=== PATIENT | male | born 1940 | race Caucasian/White ===

== ENCOUNTER 2019-09-19 17:54 | Inpatient (IN) | payer MEDICARE, OTHER, SELFPAY | END 2019-09-23 17:56 | disposition skilled nursing facility (03) | DRG 871 | PROVIDERS: Admitting Provider Internal Medicine; Family Provider Family Medicine; Visit Provider Student in an Organized Health Care Education/Training Program | DX: A41.9 Sepsis, unspecified organism (principal); J18.9 Pneumonia, unspecified organism; J96.01 Acute respiratory failure with hypoxia; N39.0 Urinary tract infection, site not specified; J44.1 Chronic obstructive pulmonary disease with (acute) exacerbation; J44.0 Chronic obstructive pulmonary disease with (acute) lower respiratory infection; N17.9 Acute kidney failure, unspecified; N20.0 Calculus of kidney; E11.9 Type 2 diabetes mellitus without complications; F17.210 Nicotine dependence, cigarettes, uncomplicated; M31.6 Other giant cell arteritis; I50.9 Heart failure, unspecified ==

== ENCOUNTER 2019-10-06 07:21 | Outpatient (CLI) | payer OTHER, SELFPAY ==
--- NOTE | 2019-10-06 07:42 | XR_ITS ---
WS: [id number] ABDOMEN KUB CLINICAL INFORMATION: Renal/ureteral calculi. COMPARISON: FINDINGS: Large stable left staghorn calculus measuring 4.8 x 2.5 cm unchanged. No visualized right renal paren chymal calculi. XR/XR KUB [id number] Impression: Stable large left staghorn calculus.
== END 2019-10-06 07:22 | disposition home or self-care (01) ==
LOC: RAD 07:26
PROVIDERS: Family Provider Family Medicine; PCP Family Medicine; Visit Provider Urology
DX: N20.0 Calculus of kidney (principal)
CPT/HCPCS: 74018

== ENCOUNTER 2019-12-11 07:46 | Outpatient (CLI) | payer MEDICARE, OTHER, SELFPAY ==
--- NOTE | 2019-12-11 08:18 | CT_ITS ---
WS: [id number] CT CHEST TECHNIQUE: Noncontrast CT of the chest with coronal and sagittal reformatted images. CLINICAL INFORMATION: LUNG NODULE COMPARISON: September 20, 2019 DLP: 588.[address] scans at [facility] use at least one of these dose optimization techniques: automat ed exposure control; mA and/or kV adjustment per patient size (includes targeted exams where dose is matched to clinical indication); or iterative reconstruction. FINDINGS: Small left pleural effusion has increased since September 20, 2019. Diffuse bilateral nodular pulmonar y opacities similar in appearance to the prior examinations dating back to 2016. Pulmonary opacities more prominent in the perihilar regions and upper lobes similar in appearance. Largest nodular opacit ies measure up to 1.9 CM. A few mediastinal lymph nodes. No mediastinal or hilar lymphadenopathy. Aortic calcification. Coronar y calcification. No axillary lymphadenopathy. Adrenal glands are normal. Partially visualized left ur eteral stent. Mild thoracic curve. CT/CT chest wo con [id number] IMPRESSION: 1. Small left pleural effusion is new since 2018. 2. Diffuse bilateral nodular pulmonary opacities similar in appearance dating back to 2016. Largest nodular opacities measure up to 1.9 cm not significantly changed. 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 3. No mediastinal or hilar lymphadenopathy. 4. Left ureteral stent. 5. Vascular calcification including coronary.
--- NOTE | 2019-12-11 08:18 | CT_ITS ---
WS: [id number] CT HEAD TECHNIQUE: Noncontrast and contrast-enhanced CT of the head. CLINICAL INFORMATION: HEADACHE COMPARISON: September 18, 2015 DLP: 1984.[address] scans at [facility] use at least one of these dose optimization techniques: automat ed exposure control; mA and/or kV adjustment per patient size (includes targeted exams where dose is matched to clinical indication); or iterative reconstruction. FINDINGS: No evidence of intracranial hemorrhage or mass effect. Ventricular system and basal cisterns are malcolm nt. Chronic lacunar infarct right caudate. Chronic lacunar infarct right thalamus. Mild small vessel changes. Moderate parenchymal volume loss. Intracranial vascular calcification. Right globe prosthesi s. No abnormal intracranial enhancement. Mastoid air cells are well aerated. Paranasal sinuses are well aerated. CT/CT head wo/w con [id number] IMPRESSION: 1. No abnormal intracranial enhancement. 2. Mild small vessel changes with moderate parenchymal volume loss. 3. 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 4. Right globe prosthesis.
[2019-12-11] MEDS: iodixanol 320 mg/mL 100mL Btl IV (09:57)
== END 2019-12-11 07:47 | disposition home or self-care (01) ==
LOC: RADWPI 07:53
PROVIDERS: Family Provider Family Medicine; PCP Family Medicine; Visit Provider Family Medicine
DX: J90 Pleural effusion, not elsewhere classified (principal); I25.10 Atherosclerotic heart disease of native coronary artery without angina pectoris; R91.1 Solitary pulmonary nodule
CPT/HCPCS: 70470; 71250; Q9967

== ENCOUNTER 2020-02-07 19:10 | Inpatient (IN) | payer MEDICARE, OTHER, SELFPAY ==
[2020-02-07] VITALS (33 sets, daily range): BP systolic 113–146; BP diastolic 59–76; PULSE 100; RESP 18; TEMP 36.9–37.6; O2SAT 90–97; BMI 25.7
--- NOTE | 2020-02-07 19:13 | CTR_ITS ---
PROCEDURE INFORMATION: Exam: CT Abdomen And Pelvis Without Contrast Exam date and time: 02/07/2020 7:32 PM Age: 79 years old Clinical indication: Abdominal pain; Prior surgery; Surgery type: Ureteral stent; Additional info: Flank pain TECHNIQUE: Imaging protocol: Computed tomography of the abdomen and pelvis without contrast. Axial, coronal and sagittal reformatted images were created and reviewed. Radiation optimization: All CT scans at this facility use at least one of these dose optimization techniques: automated exposure control; mA and/or kV adjustment per patient size (includes targeted exams where dose is matched to clinical indication); or iterative reconstruction. COMPARISON: CT Chest/Abdomen/Pelvis wo IV 09/20/2019 2:22 PM RADIATION DOSE METRICS: Total DLP: 911.54 mGy-cm FINDINGS: Lungs: Bibasilar pulmonary nodular densities, the largest of which is partially calcified and measures up to 1.9 x 1.2 cm, similar to prior and likely related to prior granulomatous disease. Linear stranding and groundglass at the lung bases, likely due to atelectasis and/or scarring. Liver: Mild hepatomegaly. Gallbladder and bile ducts: Subtle dependent hyperattenuation in the gallbladder lumen, likely secondary to sludge and/or small stones. Pancreas: Unremarkable. Spleen: Grpn-ov-[id number] splenomegaly. Coarse calcified splenic granulomata. Adrenals: Mild nonspecific left greater than right hypodense adrenal nodularity, similar to prior and likely secondary to benign hyperplasia or adenomas (no follow-up is indicated based on the imaging appearance). Kidneys and ureters: Interval placement of a left ureteral stent. Moderate left-sided hydroureteronephrosis and perinephric/periureteral edema. Small amount of gas in the left renal collecting system and ureter. Interval removal of the previously seen staghorn left renal calculus. Nonobstructing left renal calculi and/or vascular calcifications. Right renal vascular calcifications. Stomach and bowel: Colonic diverticulosis without evidence of diverticulitis. No obstruction. No bowel wall thickening. No pneumatosis. Appendix: Normal. Intraperitoneal space: No free fluid. No organized fluid collection. No free air. Vasculature: Moderate to severe atherosclerotic disease. Multifocal ectasia of the infrarenal abdominal aorta to approximately 2.8 cm, similar to prior. No aneurysm. Lymph nodes: No pathologically enlarged lymph nodes. Bladder: Circumferential urinary bladder wall thickening, trabeculation and diverticulosis, likely secondary to chronic bladder outlet obstruction. New mural gas, concerning for emphysematous cystitis. Reproductive: Enlarged prostate, projecting into the urinary bladder base. Bones/joints: No acute osseous abnormality. Osteopenia. Degenerative changes. Soft tissues: Fat containing umbilical and left inguinal hernias. Right inguinal hernia containing a nonobstructed bowel loops. CT/CT kidney stone [id number] IMPRESSION: 1. Limited noncontrast examination. 2. Interval placement of a left ureteral stent and removal of the previously seen staghorn calculus. Moderate left-sided hydroureteronephrosis and perinephric/periureteral edema. 3. Small amount of gas in the left renal collecting system and ureter, possibly secondary to recent instrumentation or gas producing organism. 4. 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 Correlate with urinalysis. 5. Enlarged prostate, projecting into the urinary bladder base. Correlate with clinical exam and PSA levels. 6. Additional findings, as above. Radiation Dose CTDIVOL = (mGy): DLP = 911.54 (mGy-cm)
--- NOTE | 2020-02-07 19:48 | XR_ITS ---
WS: [id number] PORTABLE CHEST HISTORY: fever COMPARISON: 09/19/2019 Hyperinflated lungs with patchy opacifications. Increasing opacification in the RIGHT upper lung. The remaining opacifications have slightly improved. No pleural effusion or pneumothorax. Cardiac size: Normal. Mediastinum/Aorta: Mild atherosclerosis aorta. No osseous abnormality seen. XR/XR chest 1V portable [id number] IMPRESSION: 1. New RIGHT upper lobe pneumonia. 2. Multiple bilateral pulmonary nodules remain stable.
--- NOTE | 2020-02-07 19:49 | ECG_ITS ---
Measurements Intervals [place] Rate: 91 P: 75 [place]: 163 QRS: -83 QRSD: 141 T: 18 QT: 336 QTc: 415 SINUS RHYTHM RIGHT BUNDLE BRANCH BLOCK [120+ ms QRS DURATION, UPRIGHT V1, 40+ ms S IN I/aVL/V4/V5/V6] INFERIOR MYOCARDIAL INFARCTION , PROBABLY OLD [40+ ms Q WAVE AND/OR ST/T ABNORMALITY IN II/aVF] Compared to ECG 09/20/2019 02:34:19 Myocardial infarct finding now present Sinus tachycardia no longer present Left anterior fascicular block no longer present Electronically Signed On 02-07-2020 20:34:19 CDT by Braydon Marcano M.D. [email or web address]
--- NOTE | 2020-02-07 19:50 | W.ED.MALEGU ---
HPI - Male Genitourinary General: Chief complaint: Urogenital-Male Stated complaint: poss uti or kidney stone Time Seen by Provider: 02/07/20 19:44 Source: patient Mode of arrival: ambulatory Limitations: no limitations History of Present Illness: HPI Narrative: 87-year-old male has a history of kidney stones and had to have a stent placed earlier this year. He was scheduled to have it out months ago that [place] but was unable to go due to the coronavirus. states over the last week he has had some confusion with low-grade fevers along with cough. Patient been complaining of abdominal and flank pain and she is concerned he may have a urinary tract infection. Patient here is able answer all my questions appropriately including the date and his name but said that he has had periods of confusion. 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 Recurrent UTI Staghorn renal calculus Surgical History (System 12/15/19 @ 10:45 by Windy Gonzalez) History of removal of eye Family History (System 12/15/19 @ 10:45 by Windy Gonzalez) Mother , AT AGE 91 LYMPHOMA Cancer Father , AT AGE 72 STOMACH CANCER Cancer Social History (System 12/15/19 @ 10:45 by Windy Gonzalez) Smoking and tobacco status: never smoked Alcohol intake: current Adopted: No Caregiver/support person: No Current occupational status: retired Physical Exam Const: COMMON NORMALS: no acute distress, patient oriented x3 and healthy appearing HENMT: COMMON NORMALS: normocephalic and atraumatic HEAD & SCALP: normocephalic and atraumatic Eye: COMMON NORMALS: Equal, round and reactive pupils present and EOMs intact bilaterally PUPIL: Yes Equal, round and reactive pupils present Neck/C-Spine: COMMON NORMALS: full ROM and supple Chest: COMMONS NORMALS: normal inspection of the chest and normal palpation of entire chest wall Resp: COMMON NORMALS: normal respiratory effort, No retractions, No use of accessory muscles and clear to auscultation bilaterally AUSCULTATION: clear to auscultation bilaterally Cardio: COMMON NORMALS: regular rate, regular rhythm and No murmurs present (Cardio) RATE: regular rate RHYTHM: regular rhythm GI: COMMON NORMALS: Normal to inspection, nondistended, normoactive bowel sounds present, Soft to palpation, non-tender and no masses PALPATION: Yes Soft to palpation Extremity: COMMON NORMALS: normal to inspection and full ROM Neuro: COMMON NORMALS: patient oriented x3, moves all extremities and no focal motor deficits Psych: COMMON NORMALS: mental status grossly normal, Normal thought process present and cooperative THOUGHT PROCESS: Normal thought process present Skin: COMMON NORMALS: no rashes or lesions noted and no wounds GENERAL SKIN EXAM: no rashes or lesions noted Course Vital Signs: Vital signs: Vital Signs Temperature 99.7 F H 02/07/20 19:43 Pulse Rate 100 02/07/20 19:43 Respiratory Rate 18 02/07/20 19:43 Blood Pressure 120/62 02/07/20 22:40 Pulse Oximetry 96 02/07/20 22:40 MDM - Male MDM Narrative: Medical decision making narrative: Patient presents here with fever along with altered mental status likely from urinary tract infection. I spoke to Dr. Jensen along with neurologist in [facility] recommended transfer as I do not believe stent is causing the urinary tract infection. He has no signs of major obstruction. Went over CT scan with urologist at [facility] and recommended treatment for UTI here and to follow-up to have the stent removed in the future. Patient has no signs of sepsis and I spoke to Dr. Joshua and will admit. Lab Data: Labs: Lab Results 02/07/20 02/07/20 02/07/20 Range/Units 20:00 20:00 20:05 WBC 12.0 H (4.0-10.0) 10^3/ uL RBC 5.02 (4.1-5.3) 10^6/u L Hgb 14.5 (11.7-16.6) g/dL Hct 44.9 (42.0-52.0) % MCV 89.4 (80-94) fL MCH 28.9 (28.0-34.0) pg MCHC 32.3 (30.0-36.0) g/dL RDW 13.2 (12.1-15.1) % Plt Count 206 (130-400) 10^3/c mm MPV 11.0 H (7.4-10.4) fL Neut % (Auto) 82.8 % Lymph % (Auto) 5.6 % [facility] % (Auto) 10.0 % Eos % (Auto) 0.9 % Baso % (Auto) 0.2 % Neut # (Auto) 10.0 H (1.8-7.7) 10^3/u L Lymph # (Auto) 0.7 L (0.8-4.8) 10^3/u L [facility] # (Auto) 1.2 H (0.2-0.9) 10^3/u L Eos # (Auto) 0.1 (0.0-0.8) 10^3/u L Baso # (Auto) 0.0 (0.0-0.1) 10^3/u L Nucleated RBC % (a uto) 0 % Nucleated RBCs # 0.0 /100WBC Sodium 136 (136-145) mmol/L Potassium 3.6 (3.5-5.1) mmol/L Chloride 99 (98-107) mmol/L Carbon Dioxide 24 (22-29) mmol/L Anion Gap 16.6 (5-19) BUN 50 H (8-23) mg/dL Creatinine 2.4 H (0.7-1.2) mg/dL Glucose 128 H (65-115) mg/dL Calculated Osmolal ity 282 L (285-295) mOsm/k g Lactate 2.1 (0.5-2.2) mmol/L Calcium 10.2 (8.5-10.5) mg/dL Total Bilirubin 0.7 (0.15-1.2) mg/dL AST 35 (0-40) U/L ALT 40 (0-41) U/L Alkaline Phosphata se 225 H (40-130) IU/L Total Protein 8.2 (6.6-8.7) g/dL Albumin 3.7 (3.5-5.2) g/dL Globulin 4.5 (1.3-4.6) g/dL Urine Color (Yellow) Urine Appearance (CLEAR) Urine pH (5-7) Ur Specific Gravit y (1.005-1.030) Urine Protein (Negative) Urine Glucose (UA) (Normal) Urine Ketones (Negative) Urine Blood (Negative) Urine Nitrate (Negative) Urine Bilirubin (NEGATIVE) Urine Urobilinogen (Negative) mg/dL Ur Leukocyte Mary ase (Negative) Urine RBC (0-2) /hpf Urine WBC (0-5) /hpf Ur Squamous Epith Cells (0-5) Urine Bacteria (NONE) 02/07/20 Range/Units 21:55 WBC (4.0-10.0) 10^3/ uL RBC (4.1-5.3) 10^6/u L Hgb (11.7-16.6) g/dL Hct (42.0-52.0) % MCV (80-94) fL MCH (28.0-34.0) pg MCHC (30.0-36.0) g/dL RDW (12.1-15.1) % Plt Count (130-400) 10^3/c mm MPV (7.4-10.4) fL Neut % (Auto) % Lymph % (Auto) % [facility] % (Auto) % Eos % (Auto) % Baso % (Auto) % Neut # (Auto) (1.8-7.7) 10^3/u L Lymph # (Auto) (0.8-4.8) 10^3/u L [facility] # (Auto) (0.2-0.9) 10^3/u L Eos # (Auto) (0.0-0.8) 10^3/u L Baso # (Auto) (0.0-0.1) 10^3/u L Nucleated RBC % (a uto) % Nucleated RBCs # /100WBC Sodium (136-145) mmol/L Potassium (3.5-5.1) mmol/L Chloride (98-107) mmol/L Carbon Dioxide (22-29) mmol/L Anion Gap (5-19) BUN (8-23) mg/dL Creatinine (0.7-1.2) mg/dL Glucose (65-115) mg/dL Calculated Osmolal ity (285-295) mOsm/k g Lactate (0.5-2.2) mmol/L Calcium (8.5-10.5) mg/dL Total Bilirubin (0.15-1.2) mg/dL AST (0-40) U/L ALT (0-41) U/L Alkaline Phosphata se (40-130) IU/L Total Protein (6.6-8.7) g/dL Albumin (3.5-5.2) g/dL Globulin (1.3-4.6) g/dL Urine Color Yellow (Yellow) Urine Appearance Cloudy (CLEAR) Urine pH 5 (5-7) Ur Specific Gravit y 1.010 (1.005-1.030) Urine Protein 1+ H (Negative) Urine Glucose (UA) Norm (Normal) Urine Ketones Negative (Negative) Urine Blood 3+ H (Negative) Urine Nitrate Negative (Negative) Urine Bilirubin Neg (NEGATIVE) Urine Urobilinogen Norm (Negative) mg/dL Ur Leukocyte Mary ase 2+ H (Negative) Urine RBC 0-4 H (0-2) /hpf Urine WBC >100 H (0-5) /hpf Ur Squamous Epith Cells 0-4 H (0-5) Urine Bacteria 2+ H (NONE) Imaging Data: CT Abd/Pel: Radiologist's impression: [place] [address] CT Scan Report Signed Patient: Kalin Taylor Unit #: [id number] : 1940 Age/Sex: 79 / M ADM Date: 02/07/20 Loc: ER Room/Bed: Attending Dr: Ordering Provider/Ordering MD: Kaleb Tinsley MD Date of Service: 02/07/20 Procedure(s): CT kidney stone [id number] Accession Number(s): [id number] Report Number: [id number] PROCEDURE INFORMATION: Exam: CT Abdomen And Pelvis Without Contrast Exam date and time: 02/07/2020 7:32 PM Age: 79 years old Clinical indication: Abdominal pain; Prior surgery; Surgery type: Ureteral stent; Additional info: Flank pain TECHNIQUE: Imaging protocol: Computed tomography of the abdomen and pelvis without contrast. Axial, coronal and sagittal reformatted images were created and reviewed. Radiation optimization: All CT scans at this facility use at least one of these dose optimization techniques: automated exposure control; mA and/or kV adjustment per patient size (includes targeted exams where dose is matched to clinical indication); or iterative reconstruction. COMPARISON: CT Chest/Abdomen/Pelvis wo IV 09/20/2019 2:22 PM RADIATION DOSE METRICS: Total DLP: 911.54 mGy-cm FINDINGS: Lungs: Bibasilar pulmonary nodular densities, the largest of which is partially calcified and measures up to 1.9 x 1.2 cm, similar to prior and likely related to prior granulomatous disease. Linear stranding and groundglass at the lung bases, likely due to atelectasis and/or scarring. Liver: Mild hepatomegaly. Gallbladder and bile ducts: Subtle dependent hyperattenuation in the gallbladder lumen, likely secondary to sludge and/or small stones. Pancreas: Unremarkable. Spleen: Czcg-eu-llirobyx splenomegaly. Coarse calcified splenic granulomata. Adrenals: Mild nonspecific left greater than right hypodense adrenal nodularity, similar to prior and likely secondary to benign hyperplasia or adenomas (no follow-up is indicated based on the imaging appearance). Kidneys and ureters: Interval placement of a left ureteral stent. Moderate left-sided hydroureteronephrosis and perinephric/periureteral edema. Small amount of gas in the left renal collecting system and ureter. Interval removal of the previously seen staghorn left renal calculus. Nonobstructing left renal calculi and/or vascular calcifications. Right renal vascular calcifications. Stomach and bowel: Colonic diverticulosis without evidence of diverticulitis. No obstruction. No bowel wall thickening. No pneumatosis. Appendix: Normal. Intraperitoneal space: No free fluid. No organized fluid collection. No free air. Vasculature: Moderate to severe atherosclerotic disease. Multifocal ectasia of the infrarenal abdominal aorta to approximately 2.8 cm, similar to prior. No aneurysm. Lymph nodes: No pathologically enlarged lymph nodes. Bladder: Circumferential urinary bladder wall thickening, trabeculation and diverticulosis, likely secondary to chronic bladder outlet obstruction. New mural gas, concerning for emphysematous cystitis. Reproductive: Enlarged prostate, projecting into the urinary bladder base. Bones/joints: No acute osseous abnormality. Osteopenia. Degenerative changes. Soft tissues: Fat containing umbilical and left inguinal hernias. Right inguinal hernia containing a nonobstructed bowel loops. CT/CT kidney stone [id number] IMPRESSION: 1. Limited noncontrast examination. 2. Interval placement of a left ureteral stent and removal of the previously seen staghorn calculus. Moderate left-sided hydroureteronephrosis and perinephric/periureteral edema. 3. Small amount of gas in the left renal collecting system and ureter, possibly secondary to recent instrumentation or gas producing organism. 4. 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 Correlate with urinalysis. 5. Enlarged prostate, projecting into the urinary bladder base. Correlate with clinical exam and PSA levels. 6. Additional findings, as above. CT Head: Radiologist's impression: [address] [place] [address] CT Scan Report Signed Patient: Kalin Taylor Unit #: [id number] : 1940 Age/Sex: 79 / M ADM Date: 02/07/20 Loc: ER Room/Bed: Attending Dr: Ordering Provider/Ordering MD: Kaleb Tinsley MD Date of Service: 02/07/20 Procedure(s): CT head wo con* [id number] Accession Number(s): [id number] Report Number: [id number] PROCEDURE INFORMATION: Exam: CT Head Without Contrast Exam date and time: 02/07/2020 7:54 PM Age: 79 years old Clinical indication: Altered mental status/memory loss and fever; Additional info: AMS TECHNIQUE: Imaging protocol: Computed tomography of the head without contrast. Axial, coronal and sagittal reformatted images were created and reviewed. Radiation optimization: All CT scans at this facility use at least one of these dose optimization techniques: automated exposure control; mA and/or kV adjustment per patient size (includes targeted exams where dose is matched to clinical indication); or iterative reconstruction. COMPARISON: CT head wo/w con [id number] 12/11/2019 8:38 AM RADIATION DOSE METRICS: Total DLP: 1689.76 mGy-cm FINDINGS: Brain: Patchy areas of hypoattenuation in the periventricular and subcortical white matter, consistent with chronic small vessel ischemic disease. Macro but coon's multiple basal ganglia No CT evidence of acute intracranial hemorrhage or acute territorial infarction. No significant mass effect or midline shift. Basal cisterns patent. Ventricles: Prominence of the cortical sulci, cisterns and ventricular system, consistent with cerebral and cerebellar volume loss. Bones/joints: No acute osseous abnormality. Sinuses: Mild ethmoid mucosal thickening. Orbits: Right globe prosthesis. Mastoid air cells: Grossly unremarkable. Soft tissues: Grossly unremarkable. Vasculature: Calcific atherosclerotic disease in the cavernous internal carotid arteries, as well as the vertebro-basilar system. CT/CT head wo con* [id number] [address]: 1[address] No CT evidence of acute intracranial pathology. 2. Additional findings, as above. EKG Data: EKG 1: Attestation: I personally reviewed and interpreted this EKG as follows: EKG Data: 02/07/20 EKG interpretation time: 20:22 Interpretation: nsr hr [address] or t wave abnormalities qrs 141 qtc 385 Discharge Plan Discharge Patient Disposition: Admitted As Inpatient Clinical Impression: Acute cystitis Qualifiers: Hematuria presence: without hematuria Qualified Code(s): N30.00 - Acute cystitis without hematuria Condition: Stable Discharge Diet: Advance as tolerated Discharge Activity: Resume usual activity Coding Level of Care Code ED Street Cleaner for Chg Fwd Exam Comprehensive
--- NOTE | 2020-02-07 19:53 | CTR_ITS ---
PROCEDURE INFORMATION: Exam: CT Head Without Contrast Exam date and time: 02/07/2020 7:54 PM Age: 79 years old Clinical indication: Altered mental status/memory loss and fever; Additional info: AMS TECHNIQUE: Imaging protocol: Computed tomography of the head without contrast. Axial, coronal and sagittal reformatted images were created and reviewed. Radiation optimization: All CT scans at this facility use at least one of these dose optimization techniques: automated exposure control; mA and/or kV adjustment per patient size (includes targeted exams where dose is matched to clinical indication); or iterative reconstruction. COMPARISON: CT head wo/w con [id number] 12/11/2019 8:38 AM RADIATION DOSE METRICS: Total DLP: 1689.76 mGy-cm FINDINGS: Brain: Patchy areas of hypoattenuation in the periventricular and subcortical white matter, consistent with chronic small vessel ischemic disease. Macro but coon's multiple basal ganglia No CT evidence of acute intracranial hemorrhage or acute territorial infarction. No significant mass effect or midline shift. Basal cisterns patent. Ventricles: Prominence of the cortical sulci, cisterns and ventricular system, consistent with cerebral and cerebellar volume loss. Bones/joints: No acute osseous abnormality. Sinuses: Mild ethmoid mucosal thickening. Orbits: Right globe prosthesis. Mastoid air cells: Grossly unremarkable. Soft tissues: Grossly unremarkable. Vasculature: Calcific atherosclerotic disease in the cavernous internal carotid arteries, as well as the vertebro-basilar system. CT/CT head wo con* [id number] IMPRESSION: 1. No CT evidence of acute intracranial pathology. 2. Additional findings, as above. Radiation Dose CTDIVOL = (mGy): DLP = 1689.76 (mGy-cm)
[2020-02-07 20:14] LABS: Basophils % 0.2 %; Eosinophils # 0.1 10^3/uL (0.0-0.8); Eosinophils % 0.9 %; Hematocrit 44.9 % (42.0-52.0); Hemoglobin 14.5 g/dL (11.7-16.6); Lymphocytes # 0.7 10^3/uL (0.8-4.8); Lymphocytes % 5.6 %; Mean Corpuscular HGB Conc 32.3 g/dL (30.0-36.0); Mean Corpuscular Hemoglobin 28.9 pg (28.0-34.0); Mean Corpuscular Volume 89.4 fL (80-94); Monocytes # 1.2 10^3/uL (0.2-0.9); Neutrophils % 82.8 %; Nucleated Red Blood Cells % 0 %; Platelet Count 206 10^3/cmm (130-400); Red Blood Count 5.02 10^6/uL (4.1-5.3); Red Cell Distribution Width 13.2 % (12.1-15.1)
[2020-02-07 20:29] LABS: Lactate (Lactic Acid level) 2.1 mmol/L (0.5-2.2)
[2020-02-07 20:29] LABS: Alanine Aminotransferase 40 U/L (0-41); Albumin Level 3.7 g/dL (3.5-5.2); Alkaline Phosphatase 225 IU/L (40-130); Anion Gap 16.6 (5-19); Aspartate Amino Transferase 35 U/L (0-40); Blood Urea Nitrogen 50 mg/dL (8-23); Calcium 10.2 mg/dL (8.5-10.5); Carbon Dioxide 24 mmol/L (22-29); Chloride 99 mmol/L (98-107); Globulin 4.5 g/dL (1.3-4.6); Glucose 128 mg/dL (65-115); Osmolality Calculated 282 mOsm/kg (285-295); Potassium 3.6 mmol/L (3.5-5.1); Sodium 136 mmol/L (136-145); Total Bilirubin 0.7 mg/dL (0.15-1.2); Total Protein 8.2 g/dL (6.6-8.7)
[2020-02-07] MEDS: sodium chloride 0.9% 1,000 ML 999 ML IV (20:59)
[2020-02-07] MEDS: acetaminophen 325 mg Tablet 650 MG PO (21:00)
[2020-02-07 22:12] LABS: Bilirubin Urine Neg (NEGATIVE); Blood Urine 3+ (Negative); Glucose Urine UA Norm (Normal); Ketones Urine Negative (Negative); Leukocyte Esterase Urine 2+ (Negative); Nitrate Urine Negative (Negative); Protein Urine 1+ (Negative); Urine Appearance Cloudy (CLEAR); Urine Color Yellow (Yellow); Urobilinogen Urine Norm (Negative); pH Urine 5 (5-7)
[2020-02-07 22:34] LABS: Add Urine Culture? No; Bacteria Urine 2+; RBC Urine 0-4 /hpf (0-2); Squamous Epithelial Cell Urine 0-4 (0-5); WBC Urine >100 /hpf (0-5)
[2020-02-08] VITALS (10 sets, daily range): BP systolic 130–157; BP diastolic 62–71; PULSE 79–95; RESP 18–24; TEMP 37–37.9; O2SAT 92–97
--- NOTE | 2020-02-08 00:02 | PM.HP ---
Providers/Chief Complaint Primary Care Provider: Markus Allen MD Chief Complaint: poss uti or kidney stone History of Present Illness Kalin Taylor JR is a 79 year old male with past medical history of urolithiasis who underwent lithotripsy with ureteral stent placement couple of weeks ago in [place]. Today he presents with complaints of suprapubic pain. He was also found to have some confusion and mild fever on presentation. He reports that the symptoms started several days ago and progressively got worse. He is found to have urinary tract infection. Currently he denies any hematuria. Denies muscle aches, back pain, nausea or vomiting. The patient denies similar episodes in the past. The patient also denies any chest pain, palpitations, shortness of breath, diaphoresis, dizziness or lightheadedness. 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 Recurrent UTI Staghorn renal calculus Surgical History (System 12/15/19 @ 10:45 by Windy Gonzalez) History of removal of eye Family History (System 12/15/19 @ 10:45 by Windy Gonzalez) Mother , AT AGE 91 LYMPHOMA Cancer Father , AT AGE 72 STOMACH CANCER Cancer Social History (System 12/15/19 @ 10:45 by Windy Gonzalez) Smoking and tobacco status: never smoked Alcohol intake: current Adopted: No Caregiver/support person: No Current occupational status: retired Vitals/I&O/Wt Last Vital Signs Temp 99.7 F H 02/07/20 19:43 Pulse 100 02/07/20 19:43 Resp 18 02/07/20 19:43 BP 120/62 02/07/20 22:40 Pulse Ox 96 02/07/20 22:40 Weight last 48 hrs Weight 86.183 kg Physical Exam Narrative: EXAM NARRATIVE: Currently the patient is awake alert and oriented x3. No acute distress. Mood and affect are appropriate. Responses are adequate. Skin is warm and dry. Dry mucous membranes. Eyes PERRLA, extraocular was intact. Normal speech. Neck supple, no JVD Lungs clear bilaterally. No respiratory distress Heart S1, S2, regular Abdomen is soft, mildly tender in the suprapubic area. No rebound bowel sounds are present. No CVA tenderness Extremities trace edema, no cyanosis, no calf tenderness bilaterally. No focal deficits. Data : 02/07/20 20:00 02/07/20 20:00 Other Labs: Laboratory Results WBC 12.0 10^3/uL (4.0-10.0) H 02/07/20 20:00 RBC 5.02 10^6/uL (4.1-5.3) 02/07/20 20:00 Hgb 14.5 g/dL (11.7-16.6) 02/07/20 20:00 Hct 44.9 % (42.0-52.0) 02/07/20 20:00 MCV 89.4 fL (80-94) 02/07/20 20:00 MCH 28.9 pg (28.0-34.0) 02/07/20 20:00 MCHC 32.3 g/dL (30.0-36.0) 02/07/20 20:00 RDW 13.2 % (12.1-15.1) 02/07/20 20:00 Plt Count 206 10^3/cmm (130-400) 02/07/20 20: MPV 11.0 fL (7.4-10.4) H 02/07/20 20:00 Neut % (Auto) 82.8 % 02/07/20 20:00 Lymph % (Auto) 5.6 % 02/07/20 20:00 Divide % (Auto) 10.0 % 02/07/20 20:00 Eos % (Auto) 0.9 % 02/07/20 20:00 Baso % (Auto) 0.2 % 02/07/20 20:00 Neut # (Auto) 10.0 10^3/uL (1.8-7.7) H 02/07/20 20:00 Lymph # (Auto) 0.7 10^3/uL (0.8-4.8) L 02/07/20 20:00 Divide # (Auto) 1.2 10^3/uL (0.2-0.9) H 02/07/20 20:00 Eos # (Auto) 0.1 10^3/uL (0.0-0.8) 02/07/20 20:00 Baso # (Auto) 0.0 10^3/uL (0.0-0.1) 02/07/20 20:00 Nucleated RBC % (auto) 0 % 02/07/20 20: Nucleated RBCs # 0.0 /100WBC 02/07/20 20:00 Sodium 136 mmol/L (136-145) 02/07/20 20:00 Potassium 3.6 mmol/L (3.5-5.1) 02/07/20 20:00 Chloride 99 mmol/L (98-107) 02/07/20 20:00 Carbon Dioxide 24 mmol/L (22-29) 02/07/20 20:00 Anion Gap 16.6 (5-19) 02/07/20 20:00 BUN 50 mg/dL (8-23) H 02/07/20 20:00 Creatinine 2.4 mg/dL (0.7-1.2) H 02/07/20 20:00 Glucose 128 mg/dL (65-115) H 02/07/20 20:00 Calculated Osmolality 282 mOsm/kg (285-295) L 02/07/20 20:00 Lactate 2.1 mmol/L (0.5-2.2) 02/07/20 20:05 Calcium 10.2 mg/dL (8.5-10.5) 02/07/20 20:00 Total Bilirubin 0.7 mg/dL (0.15-1.2) 02/07/20 20:00 AST 35 U/L (0-40) 02/07/20 20:00 ALT 40 U/L (0-41) 02/07/20 20:00 Alkaline Phosphatase 225 IU/L (40-130) H 02/07/20 20:00 Total Protein 8.2 g/dL (6.6-8.7) 02/07/20 20:00 Albumin 3.7 g/dL (3.5-5.2) 02/07/20 20:00 Globulin 4.5 g/dL (1.3-4.6) 02/07/20 20:00 Urine Color Yellow (Yellow) 02/07/20 21:55 Urine Appearance Cloudy (CLEAR) 02/07/20 21:55 Urine pH 5 (5-7) 02/07/20 21:55 Ur Specific [place] 1.010 (1.005-1.030) 02/07/20 21:55 Urine Protein 1+ (Negative) H 02/07/20 21:55 Urine Glucose (UA) Norm (Normal) 02/07/20 21: Urine Ketones Negative (Negative) 02/07/20 21:55 Urine Blood 3+ (Negative) H 02/07/20 21: Urine Nitrate Negative (Negative) 02/07/20: Urine Bilirubin Neg (NEGATIVE) 02/07/20 21: Urine Urobilinogen Norm mg/dL (Negative) 02/07/20 21:55 Ur Leukocyte Esterase 2+ (Negative) H 02/07/20 21:55 Urine RBC 0-4 /hpf (0-2) H 02/07/20 21:55 Urine WBC >100 /hpf (0-5) H 02/07/20 21:55 Ur Squamous Epith Cells 0-4 (0-5) H 02/07/20 21:55 Urine Bacteria 2+ (NONE) H 02/07/20 21:55 Impressions Abdomen/Pelvis CT 02/07/20 19:13 IMPRESSION: 1. Limited noncontrast examination. 2. Interval placement of a left ureteral stent and removal of the previously seen staghorn calculus. Moderate left-sided hydroureteronephrosis and perinephric/periureteral edema. 3. Small amount of gas in the left renal collecting system and ureter, possibly secondary to recent instrumentation or gas producing organism. 4. 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 Correlate with urinalysis. 5. Enlarged prostate, projecting into the urinary bladder base. Correlate with clinical exam and PSA levels. 6. Additional findings, as above. Radiation Dose CTDIVOL = (mGy): DLP = 911.54 (mGy-cm) Head CT 02/07/20 19:[address]: 1[address] evidence of acute intracranial pathology. 2. Additional findings, as above. Radiation Dose CTDIVOL = (mGy): DLP = 1689.76 (mGy-cm) Micro: Microbiology 02/07/20 20:00 Blood Culture - Preliminary Blood SPECIMEN COLLECTED 02/07/20 20:05 Blood Culture - Preliminary Blood SPECIMEN COLLECTED A&P Additional A&P Information This is a 79-year-old male with recent history of urolithiasis and lithotripsy in [place] with left ureteral stent placement who presents with complaints of suprapubic pain, confusion and fever. The patient is found to have urinary tract infection, left-sided hydro-nephrosis and hydroureter, elevated creatinine level which seems to be close to baseline. There is also evidence of dehydration. Urinary tract infection. Cultures are taken. Follow-up the results. For now he will receive Rocephin daily. Left-sided hydronephrosis and hydroureter. Has associated elevation of creatinine which is probably not new. ER physician spoke with his urologist in [place] as well as are urologist Dr. Jensen. Both of them recommended conservative management and no specific procedures. They would be happy to see the patient after discharge in their office. We will insert Aldana catheter today and continue monitoring his renal function. 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 As above. DVT prophylaxis. Heparin. Elevated alk phos. The abdomen is not tender in the right upper quadrant. I doubt that this is related to gallbladder disease. Will need close monitoring and outpatient follow-up. Chest x-ray shows bilateral nodules which are probably old. Please review official radiology report and instruct the patient for outpatient follow-up with the PCP for continuous monitoring after discharge. CODE STATUS. The patient wants to be full code. Attestations Medical Necessity Statement*: I expect that the patient will spend more than 2 midnights in the hospital according to the treatment plan. Coding Level of Care Code Acute Chain Offbearer for Mynor Barry
[2020-02-08] MEDS: cefTRIAXone 1,000 MG in sodium chloride 0.9% (plus) 50 ML 100 MG IV (01:09)
[2020-02-08] MEDS: heparin 5,000 unit/mL INJ 1 mL 5000 UNIT SUBCUT ×3 (01:57→17:35)
--- NOTE | 2020-02-08 02:15 | PC.NURSE ---
Sutures to left upper back: Pt has sutures to his left upper back. States that he had stents placed at [place] a few weeks ago and missed his appointment to get them removed due to the COVID event. He refuses to allow nursing staff to remove sutures saying that he wants to wait until her goes back to [place] next week. No redness noted to the site at this time.
[2020-02-08] MEDS: sodium chloride 0.9% 1,000 ML 100 ML IV ×2 (03:11→08:55)
[2020-02-08 04:52] LABS: Basophils % 0.2 %; Eosinophils # 0.1 10^3/uL (0.0-0.8); Eosinophils % 1.2 %; Hemoglobin 12.4 g/dL (11.7-16.6); Lymphocytes # 0.9 10^3/uL (0.8-4.8); Lymphocytes % 9.6 %; Mean Corpuscular HGB Conc 31.8 g/dL (30.0-36.0); Mean Corpuscular Hemoglobin 28.6 pg (28.0-34.0); Mean Corpuscular Volume 89.9 fL (80-94); Mean Platelet Volume 11.1 fL (7.4-10.4); Monocytes # 1.2 10^3/uL (0.2-0.9); Neutrophils # 7.4 10^3/uL (1.8-7.7); Neutrophils % 76.7 %; Nucleated Red Blood Cells % 0 %; Platelet Count 170 10^3/cmm (130-400); Red Blood Count 4.34 10^6/uL (4.1-5.3); Red Cell Distribution Width 13.2 % (12.1-15.1); White Blood Count 9.6 10^3/uL (4.0-10.0)
[2020-02-08 05:12] LABS: Anion Gap 15.9 (5-19); Blood Urea Nitrogen 43 mg/dL (8-23); Calcium 9.3 mg/dL (8.5-10.5); Carbon Dioxide 24 mmol/L (22-29); Chloride 104 mmol/L (98-107); Glucose 135 mg/dL (65-115); Magnesium 2.2 mg/dL (1.7-2.3); Osmolality Calculated 290 mOsm/kg (285-295); Potassium 3.9 mmol/L (3.5-5.1); Sodium 140 mmol/L (136-145)
--- NOTE | 2020-02-08 07:35 | PM.PN ---
Subjective Subjective: Interval history: The patient states that he feels a little better compared to yesterday. He continues to have some left flank pain. He says that he feels thirsty. He denies any chest pains or shortness of breath. Vitals/I&O/Wt Last Vital Signs Temp 98.6 F 02/08/20 04:00 Pulse 79 02/08/20 04:00 Resp 24 H 02/08/20 04:00 BP 151/69 02/08/20 04:00 Pulse Ox 97 02/08/20 04:00 Weight last 48 hrs Weight 190 lb Physical Exam Narrative: EXAM NARRATIVE: General: Alert and oriented x3 Cardiac: Regular rate and rhythm without murmurs Lungs: Clear to auscultation bilaterally without wheezes, crackles or rhonchi Abdomen: Soft, mild tenderness in the left abdomen. No hepatosplenomegaly noted. Left flank pain appreciated. No right flank pain noted. Extremities: No edema Urinary Catheter Management^: Aldana: Cath Placed During This Visit: yes Urinary Catheter Date of Insertion: 02/08/20 Urinary Catheter Time of Insertion: 02:00 Data : 02/08/20 04:40 02/08/20 04:40 Micro: Microbiology 02/07/20 20:00 Blood Culture - Preliminary Blood SPECIMEN COLLECTED 02/07/20 20:05 Blood Culture - Preliminary Blood SPECIMEN COLLECTED A&P Assessment and plan (1) Pyelonephritis: Status: Acute (2) Hydronephrosis: Status: Acute (3) Acute on chronic renal insufficiency: Status: Acute Additional A&P Information 1. Left pyelonephritis -the patient has signs of pyelonephritis on the left clinically and on CT scan. The patient is receiving Rocephin IV. We will continue with this and if she is not showing signs of improvement, broaden her spectrum. The patient does feel warm to touch today. I will increase his IV fluids to make up for these losses. 2. Acute on chronic renal insufficiency -the patient's creatinine is in the 2.3 range and it appears that it was in the 1.8 range earlier this year. We will continue with IV fluid rehydration. This is likely secondary to a mixed obstructive and prerenal cause. 3. Hydronephrosis -patient has moderate hydronephrosis. There are some signs of air that is likely due to recent placement of stents approximately 2 weeks ago in [place]. If the patient is worsening, I will consult urology. They have reviewed his current findings and are okay with seeing the patient as an outpatient at this time. It appears based on notes that the patient's urologist in [place] as well as our radiologist were both contacted. 4. Volume depletion -increase IV fluids temporarily and decrease once he is euvolemic. 5. Prophylaxis -Heparin 3 times daily. Attestations Medical Necessity Statement*: The patient will be have greater than 2 midnights and needs inpatient admission for IV therapy for pyelonephritis. Coding Level of Care Code Acute Exerciser Horse for [facility] Jhonny Diagnoses Pyelonephritis N12 Hydronephrosis N13.30 Acute on chronic renal insufficiency N28.9; N18.9
[2020-02-08] MEDS: escitalopram 10 mg Tablet 20 MG PO (08:55)
--- NOTE | 2020-02-08 14:08 | PC.SOCIAL ---
The Patient received the [facility] recipient letter. The patient signed the original which was placed in the chart and was given a copy.
[2020-02-09] VITALS (7 sets, daily range): BP systolic 139–179; BP diastolic 64–76; PULSE 67–94; RESP 17–19; TEMP 36.4–38.8; O2SAT 93–98
[2020-02-09] MEDS: cefTRIAXone 1,000 MG in sodium chloride 0.9% (plus) 50 ML 100 MG IV ×2 (02:22→04:15)
[2020-02-09] MEDS: heparin 5,000 unit/mL INJ 1 mL 5000 UNIT SUBCUT ×3 (02:22→17:19)
[2020-02-09 03:51] LABS: Basophils % 0.3 %; Eosinophils # 0.1 10^3/uL (0.0-0.8); Eosinophils % 1.2 %; Hematocrit 36.5 % (42.0-52.0); Hemoglobin 11.7 g/dL (11.7-16.6); Lymphocytes % 11.4 %; Mean Corpuscular HGB Conc 32.1 g/dL (30.0-36.0); Mean Corpuscular Hemoglobin 28.6 pg (28.0-34.0); Mean Corpuscular Volume 89.2 fL (80-94); Monocytes % 10.6 %; Neutrophils # 6.8 10^3/uL (1.8-7.7); Neutrophils % 75.6 %; Nucleated Red Blood Cells % 0 %; Platelet Count 184 10^3/cmm (130-400); Red Blood Count 4.09 10^6/uL (4.1-5.3); Red Cell Distribution Width 13.2 % (12.1-15.1)
[2020-02-09 04:09] LABS: Alanine Aminotransferase 40 U/L (0-41); Albumin Level 2.7 g/dL (3.5-5.2); Alkaline Phosphatase 220 IU/L (40-130); Anion Gap 15.9 (5-19); Aspartate Amino Transferase 29 U/L (0-40); Blood Urea Nitrogen 34 mg/dL (8-23); Calcium 8.4 mg/dL (8.5-10.5); Carbon Dioxide 20 mmol/L (22-29); Chloride 110 mmol/L (98-107); Globulin 3.4 g/dL (1.3-4.6); Glucose 126 mg/dL (65-115); Osmolality Calculated 293 mOsm/kg (285-295); Phosphorus 2.1 mg/dL (2.5-4.5); Potassium 3.9 mmol/L (3.5-5.1); Sodium 142 mmol/L (136-145); Total Bilirubin 0.4 mg/dL (0.15-1.2); Total Protein 6.1 g/dL (6.6-8.7)
[2020-02-09] MEDS: acetaminophen 325 mg Tablet 650 MG PO ×2 (04:25→20:18)
[2020-02-09] MEDS: escitalopram 10 mg Tablet 20 MG PO (08:56)
--- NOTE | 2020-02-09 10:00 | PC.CHAP ---
Pastoral Care Encounter/Spiritual Assessment Type of Contact [] Declined furnace tender visit [] Patient/Family/Request visit [] Outpatient visit [] Follow-up visit [] Physician referral [] Code/Alert [x] Routine visit [] Staff referral [] Actively dying [] Patient sleeping [] Family support [] [] Out of room [] Palliative care [] [] Receiving care in room [] Pre-surgical visit [] Trauma [] Long length of stay [] ICU visit [] Other: Relational/Emotional Strength [] Patient feels connected with others/family/visitors/staff [] Distress [] Loneliness/isolation [] Abandonment Spirituality of Patient [] Person of Rima [] Attends Taoist of their Rima [] Believes in Prayer [] Reads Bible or Buddhism materials [] There are Spiritual issues to be addressed Orthopedic Physician Assistant Interventions [x] Prayer [] Active listening [] Non-anxious presence [] Spiritual/emotional support [] Crisis/trauma care [] Spiritual counseling [] Bereavement support [] Provided bereavement packet [] Provided Bible/devotional materials [] Provided toy/stuffed animal, coloring book to patient or family member [] Provided Communion [] Anointing/Russell [] Salvation [x] Completed spiritual assessment [] Other: Impact on Illness or Injury [] Angry [] Fearful [] Anxious [] Often cries [] Exhaustion [] Unable to work [] Unable to attend uatsdin [] Unable to walk/stand [] Unable to read [] Unable to drive [] Unable to eat/drink [] Unable to sleep [] Unable to be with family [] Patient intubated [] Other: Summary Patient resting well. Time spent with patient 10 min
[2020-02-09] MEDS: fixodent 39 gm Tube 1 APPLIC DENTAL (11:22)
--- NOTE | 2020-02-09 12:21 | PM.PN ---
Subjective Subjective: Interval history: The patient is still feeling weak in general. He says that he still feels dehydrated. He has some pain in his left flank and suprapubic region still. Otherwise he states that he is feeling well. Vitals/I&O/Wt Last Vital Signs Temp 98.2 F 02/09/20 11:35 Pulse 67 02/09/20 11:35 Resp 19 H 02/09/20 11:35 BP 143/68 02/09/20 11:35 Pulse Ox 98 02/09/20 11:35 02/08/20 02/09/20 02/09/20 22:59 06:59 14:59 Intake Total 240 / 1653.333 50 / 1703.333 240 / 240 Output Total 2100 / 2100 1400 / 3500 Balance -1860 / -446.667 -1350 / -1796.667 240 / 240 Weight last 48 hrs Weight 190 lb Physical Exam Narrative: EXAM NARRATIVE: General: Alert and oriented x3 Mouth: Mucous membranes are dry Cardiac: Regular rate and rhythm without murmurs Lungs: Clear to auscultation bilaterally without wheezes, crackles or rhonchi Abdomen: Soft, mild tenderness in the left abdomen. No hepatosplenomegaly noted. Left flank pain appreciated. No right flank pain noted. Extremities: No edema Urinary Catheter Management^: Aldana: Cath Placed During This Visit: yes Reason for Continuing Indwelling Catheter: Acute Urinary Retention or Obstruction Urinary Catheter Date of Insertion: 02/08/20 Urinary Catheter Time of Insertion: 02:00 Data : 02/09/20 03:25 02/09/20 03:25 Micro: Microbiology 02/07/20 20:00 Blood Culture - Preliminary Blood NEGATIVE TO DATE 02/07/20 20:05 Blood Culture - Preliminary Blood Gram Negative Rods A&P Assessment and plan (1) Pyelonephritis: Status: Acute (2) Hydronephrosis: Status: Acute (3) Acute on chronic renal insufficiency: Status: Acute Additional A&P Information 1. Sepsis secondary to left pyelonephritis -the patient has signs of pyelonephritis on the left clinically and on CT scan. The patient is receiving Rocephin IV. I will add ciprofloxacin secondary to bacteria being found in his blood culture. We may narrow the spectrum of antibiotics once sensitivities return. The patient will be given a 500 mL fluid bolus followed by normal saline at 150 mL/h. We will slow this down once he is euvolemic. 2. Acute on chronic renal insufficiency -the patient's creatinine is in the 2.3 range and it appears that it was in the 1.8 range earlier this year. We will continue with IV fluid rehydration. This is likely secondary to a mixed obstructive and prerenal cause. 3. Hydronephrosis -patient has moderate hydronephrosis. There are some signs of air that is likely due to recent placement of stents approximately 2 weeks ago in [place]. If the patient is worsening, I will consult urology. They have reviewed his current findings and are okay with seeing the patient as an outpatient at this time. It appears based on notes that the patient's urologist in [place] as well as our urologist were both contacted. 4. Volume depletion -increase IV fluids temporarily and decrease once he is euvolemic. 5. Prophylaxis -Heparin 3 times daily. Attestations Medical Necessity Statement*: The patient continues need inpatient care with IV antibiotic therapy and rehydration secondary to the above. Is stable cross 2 midnights. I expect him to need a minimum of 3 days of IV antibiotics. Coding Level of Care Code Acute Fibreglass Laminator for [facility] Jhonny Diagnoses Pyelonephritis N12 Hydronephrosis N13.30 Acute on chronic renal insufficiency N28.9; N18.9
[2020-02-09] MEDS: ciprofloxacin 400 MG/200 ML PREMIX 200 MG IV (13:04)
[2020-02-09] MEDS: sodium chloride 0.9% 250 ML IV (14:46)
[2020-02-09] MEDS: sodium chloride 0.9% 1,000 ML 150 ML IV ×2 (15:01→22:24)
[2020-02-10] VITALS (7 sets, daily range): BP systolic 148–172; BP diastolic 49–74; PULSE 69–77; RESP 14–18; TEMP 36.5–37; O2SAT 94–96
[2020-02-10] MEDS: heparin 5,000 unit/mL INJ 1 mL 5000 UNIT SUBCUT ×3 (03:01→17:06)
[2020-02-10] MEDS: sodium chloride 0.9% 1,000 ML 150 ML IV (05:10)
[2020-02-10] MEDS: cefTRIAXone 1,000 MG in sodium chloride 0.9% (plus) 50 ML 100 MG IV (05:47)
[2020-02-10 05:59] LABS: Basophils % 0.3 %; Eosinophils # 0.2 10^3/uL (0.0-0.8); Eosinophils % 1.9 %; Hematocrit 34.5 % (42.0-52.0); Hemoglobin 11.2 g/dL (11.7-16.6); Lymphocytes # 1.1 10^3/uL (0.8-4.8); Lymphocytes % 13.7 %; Mean Corpuscular HGB Conc 32.5 g/dL (30.0-36.0); Mean Corpuscular Hemoglobin 28.9 pg (28.0-34.0); Mean Corpuscular Volume 89.1 fL (80-94); Mean Platelet Volume 10.7 fL (7.4-10.4); Monocytes # 0.8 10^3/uL (0.2-0.9); Monocytes % 9.8 %; Neutrophils # 5.8 10^3/uL (1.8-7.7); Neutrophils % 73.2 %; Nucleated Red Blood Cells % 0 %; Platelet Count 197 10^3/cmm (130-400); Red Blood Count 3.87 10^6/uL (4.1-5.3); Red Cell Distribution Width 13.3 % (12.1-15.1); White Blood Count 7.9 10^3/uL (4.0-10.0)
[2020-02-10 06:14] LABS: Alanine Aminotransferase 53 U/L (0-41); Albumin Level 2.6 g/dL (3.5-5.2); Alkaline Phosphatase 282 IU/L (40-130); Aspartate Amino Transferase 47 U/L (0-40); Blood Urea Nitrogen 30 mg/dL (8-23); Calcium 8.6 mg/dL (8.5-10.5); Carbon Dioxide 18 mmol/L (22-29); Chloride 110 mmol/L (98-107); Globulin 2.8 g/dL (1.3-4.6); Glucose 125 mg/dL (65-115); Osmolality Calculated 291 mOsm/kg (285-295); Phosphorus 3.1 mg/dL (2.5-4.5); Sodium 141 mmol/L (136-145); Total Bilirubin 0.3 mg/dL (0.15-1.2); Total Protein 5.4 g/dL (6.6-8.7)
[2020-02-10 06:15] LABS: Magnesium 1.9 mg/dL (1.7-2.3)
[2020-02-10] MEDS: escitalopram 10 mg Tablet 20 MG PO (09:58)
[2020-02-10] MEDS: ciprofloxacin 400 MG/200 ML PREMIX 200 MG IV (12:31)
--- NOTE | 2020-02-10 16:09 | PC.NURSE ---
BP was checked three different times to ensure correct reading. Nurse notified, as well as charge
--- NOTE | 2020-02-10 16:31 | PM.PN ---
Subjective Subjective: Interval history: Kalin reports he feels little bit better. No specific complaints today. History and physical reviewed. Medications: Reviewed: Yes Vitals/I&O/Wt Last Vital Signs Temp 98.6 F 02/10/20 16:00 Pulse 69 02/10/20 16:00 Resp 14 02/10/20 16:00 BP 169/69 02/10/20 16:00 Pulse Ox 96 02/10/20 16:00 02/10/20 02/10/20 02/10/20 06:59 14:59 22:59 Intake Total 1000 / 2920 1040 / 1040 Output Total 1500 / 3100 800 / 800 Balance -500 / -180 240 / 240 Physical Exam Narrative: EXAM NARRATIVE: General exam is no apparent distress Cardiovascular regular rate and rhythm without murmur Lungs clear Abdomen is soft with positive bowel sounds Extremities no cyanosis clubbing or edema Urinary Catheter Management^: Aldana: Cath Placed During This Visit: yes Reason for Continuing Indwelling Catheter: Other Urinary Catheter Date of Insertion: 02/08/20 Urinary Catheter Time of Insertion: 02:00 Data : 02/10/20 05:38 02/10/20 05:38 Micro: Microbiology 02/07/20 21:55 Urine Culture - Final Urine Catheterized Klebsiella pneumoniae 02/07/20 20:05 Blood Culture - Preliminary Blood Gram Negative Rods A&P Assessment and plan (1) Pyelonephritis: Currently on ceftriaxone, ciprofloxacin Culture shows Klebsiella, sensitive to ciprofloxacin and ceftriaxone. Discontinue ceftriaxone. Continue Cipro. Status: Acute (2) Hydronephrosis: Status post urinary stenting, [place] approximately 2 weeks ago for hydronephrosis and staghorn calculus. Urology has apparently reviewed and no change in treatment as far as stenting at this point. Status: Acute (3) Acute on chronic renal insufficiency: Improved Status: Acute Additional A&P Information Reduce fluids Heparin for DVT prophylaxis Attestations Medical Necessity Statement*: Needs continued hospitalization for IV antibiotics related to pyelonephritis Coding Level of Care Code Acute Can Conveyor Feeder for [facility] Fwmartín Diagnoses Pyelonephritis N12 Hydronephrosis N13.30 Acute on chronic renal insufficiency N28.9; N18.9
[2020-02-10] MEDS: sodium chloride 0.9% 1,000 ML 100 ML IV ×2 (18:00)
--- NOTE | 2020-02-10 22:54 | PC.NURSE ---
The pt - Siri and the pt agreed to let a nurse remove the two stitches on his back that he received from his visit at [place] over two weeks ago. Tara BRAUN removed two stitches. The bottom stitch towards hips had partial growth of skin over it. Skin around the area was slightly red-pink, no signs of bleeding, and pt tolerated removal well. An optifoam was placed over removed area/.
[2020-02-11] VITALS (7 sets, daily range): BP systolic 142–179; BP diastolic 69–78; PULSE 68–79; RESP 14–22; TEMP 36.7–37.2; O2SAT 95–96
[2020-02-11] MEDS: heparin 5,000 unit/mL INJ 1 mL 5000 UNIT SUBCUT ×3 (02:37→17:30)
[2020-02-11] MEDS: sodium chloride 0.9% 1,000 ML 100 ML IV ×2 (03:34→13:29)
[2020-02-11] MEDS: cefTRIAXone 2,000 MG in sodium chloride 0.9% (plus) 50 ML 100 MG IV (05:11)
[2020-02-11 06:01] LABS: Basophils % 0.5 %; Eosinophils # 0.1 10^3/uL (0.0-0.8); Eosinophils % 1.6 %; Hematocrit 34.9 % (42.0-52.0); Hemoglobin 11.3 g/dL (11.7-16.6); Lymphocytes # 1.1 10^3/uL (0.8-4.8); Mean Corpuscular HGB Conc 32.4 g/dL (30.0-36.0); Mean Corpuscular Hemoglobin 28.6 pg (28.0-34.0); Mean Corpuscular Volume 88.4 fL (80-94); Mean Platelet Volume 10.5 fL (7.4-10.4); Monocytes # 0.6 10^3/uL (0.2-0.9); Monocytes % 6.6 %; Neutrophils # 6.6 10^3/uL (1.8-7.7); Neutrophils % 76.9 %; Nucleated Red Blood Cells % 0 %; Platelet Count 248 10^3/cmm (130-400); Red Blood Count 3.95 10^6/uL (4.1-5.3); White Blood Count 8.6 10^3/uL (4.0-10.0)
[2020-02-11 06:24] LABS: Anion Gap 15.7 (5-19); Blood Urea Nitrogen 20 mg/dL (8-23); Calcium 8.2 mg/dL (8.5-10.5); Carbon Dioxide 20 mmol/L (22-29); Chloride 108 mmol/L (98-107); Glucose 133 mg/dL (65-115); Osmolality Calculated 288 mOsm/kg (285-295); Potassium 3.7 mmol/L (3.5-5.1); Sodium 140 mmol/L (136-145)
[2020-02-11] MEDS: escitalopram 10 mg Tablet 20 MG PO (08:17)
--- NOTE | 2020-02-11 10:10 | PC.SOCIAL ---
IMM Page 2 of IMM given to patient. Initialed, dated, and timed and placed in chart.
--- NOTE | 2020-02-11 13:17 | PM.PN ---
Subjective Subjective: Interval history: Kalin reports he feels a little bit better. He still very weak. Medications: Reviewed: Yes Vitals/I&O/Wt Last Vital Signs Temp 98.3 F 02/11/20 11:46 Pulse 68 02/11/20 11:46 Resp 20 H 02/11/20 11:46 BP 159/73 02/11/20 11:46 Pulse Ox 96 02/11/20 11:46 02/10/20 02/11/20 02/11/20 22:59 06:59 14:59 Intake Total 1804 / 2844 1168.334 / 4012.334 600 / 600 Output Total 1550 / 2350 450 / 2800 1400 / 1400 Balance 254 / 494 718.334 / 1212.334 -800 / -800 Physical Exam Narrative: EXAM NARRATIVE: General exam no apparent distress Cardiovascular regular rate and rhythm without murmur Lungs clear Abdomen soft, positive bowel sounds Extremities no cyanosis clubbing or edema Urinary Catheter Management^: Aldana: Cath Placed During This Visit: yes Reason for Continuing Indwelling Catheter: Not indwelling catheter Urinary Catheter Date of Insertion: 02/08/20 Urinary Catheter Time of Insertion: 02:00 Data : 02/11/20 05:38 02/11/20 05:38 Micro: Microbiology 02/07/20 20:05 Blood Culture - Preliminary Blood Klebsiella pneumoniae 02/10/20 17:26 Blood Culture - Preliminary Blood SPECIMEN COLLECTED 02/10/20 17:26 Blood Culture - Preliminary Blood SPECIMEN COLLECTED 02/07/20 21:55 Urine Culture - Final Urine Catheterized Klebsiella pneumoniae A&P Assessment and plan (1) Pyelonephritis: Currently on ceftriaxone, ciprofloxacin Culture shows Klebsiella both blood and urine, sensitive to ciprofloxacin and ceftriaxone. Discontinue ceftriaxone. Continue Cipro. If continues to improve home tomorrow on oral Cipro, 14 days minimum from initiation of treatment and may need prophylaxis following this. Status: Acute (2) Hydronephrosis: Status post urinary stenting, [place] approximately 2 weeks ago for hydronephrosis and staghorn calculus. Urology has apparently reviewed and no change in treatment as far as stenting at this point. Status: Acute (3) Acute on chronic renal insufficiency: Improved Check BMP tomorrow Status: Acute Additional A&P Information Reduce fluids further Heparin for DVT prophylaxis Attestations Medical Necessity Statement*: Needs continued hospitalization for IV antibiotics for bacteremia. Coding Level of Care Code Acute Assembly Line Inspector for [facility] Diagnoses Pyelonephritis N12 Hydronephrosis N13.30 Acute on chronic renal insufficiency N28.9; N18.9
[2020-02-11] MEDS: ciprofloxacin 400 MG/200 ML PREMIX 200 MG IV (13:20)
[2020-02-12] MEDS: heparin 5,000 unit/mL INJ 1 mL 5000 UNIT SUBCUT ×2 (02:06→09:04)
[2020-02-12 04:00] VITALS: BP 164/72; PULSE 74; RESP 17; TEMP 36.7; O2SAT 96
[2020-02-12 06:03] LABS: Basophils % 0.2 %; Eosinophils # 0.1 10^3/uL (0.0-0.8); Eosinophils % 1.2 %; Hematocrit 34.3 % (42.0-52.0); Hemoglobin 11.3 g/dL (11.7-16.6); Lymphocytes # 1.4 10^3/uL (0.8-4.8); Lymphocytes % 12.8 %; Mean Corpuscular HGB Conc 32.9 g/dL (30.0-36.0); Mean Corpuscular Hemoglobin 29.3 pg (28.0-34.0); Mean Corpuscular Volume 88.9 fL (80-94); Mean Platelet Volume 10.4 fL (7.4-10.4); Monocytes # 0.7 10^3/uL (0.2-0.9); Monocytes % 6.8 %; Neutrophils # 8.3 10^3/uL (1.8-7.7); Nucleated Red Blood Cells % 0 %; Platelet Count 278 10^3/cmm (130-400); Red Blood Count 3.86 10^6/uL (4.1-5.3); Red Cell Distribution Width 13.2 % (12.1-15.1); White Blood Count 10.6 10^3/uL (4.0-10.0)
[2020-02-12 06:20] LABS: Anion Gap 14.9 (5-19); Blood Urea Nitrogen 18 mg/dL (8-23); Calcium 8.3 mg/dL (8.5-10.5); Carbon Dioxide 21 mmol/L (22-29); Chloride 111 mmol/L (98-107); Glucose 116 mg/dL (65-115); Osmolality Calculated 293 mOsm/kg (285-295); Potassium 3.9 mmol/L (3.5-5.1); Sodium 143 mmol/L (136-145)
[2020-02-12 08:00] VITALS: BP 159/72; PULSE 79; RESP 17; TEMP 36.4; O2SAT 95
--- NOTE | 2020-02-12 08:01 | P.DS_ITS ---
Discharge Providers Date of Admission: 02/08/20 00:21 Date of Discharge: February 12, 2020 Attending Provider at Admission: David Marcano Attending Provider at Discharge: Chidi Welch MD Primary Care Provider: Markus Allen MD Diagnoses at Discharge Discharge Diagnosis (1) Pyelonephritis: Status: Acute (2) Hydronephrosis: Status: Acute (3) Acute on chronic renal insufficiency: Status: Acute Reason for Visit Reason for Visit: Reason For Visit: poss uti or kidney stone Hospital Course Hospital Course: Kalin Taylor JR is an 79 year old male with past medical history of urolithiasis who underwent lithotripsy with ureteral stent placement couple of weeks ago in [place]. He presented with complaints of suprapubic pain. He was also found to have some confusion and mild fever on presentation. He reported that the symptoms started several days ago and progressively got worse. The patient was started on Rocephin secondary to concern for pyelonephritis on the left. The patient had a CT scan showing signs of this as well as air in the bladder and kidney most likely secondary to his recent instrumentation. The patient was febrile and blood cultures were drawn. Patient's blood cultures and urine culture both grew Klebsiella that was sensitive to both Rocephin and ciprofloxacin. The patient had not been improving sufficiently after 2 days of Rocephin IV, so ciprofloxacin was added. With this addition, the patient began to improve well. The patient was given ciprofloxacin IV for 3 days and given IV fluids for rehydration. The patient is doing much better at this time and his left flank pain is gone. The patient is currently afebrile. We will continue with ciprofloxacin for a total of 14 days and plan to have the patient follow-up with his PCP in the next week and his urologist in [place] in the next 1 to 2 weeks. The patient may need to have further antibiotic prophylaxis after the 2 weeks of ciprofloxacin is done. This can be determined by either his PCP or the urologist. All questions were answered. The patient is in agreement with going home at this time. Physical Exam Narrative: EXAM NARRATIVE: General: Alert and oriented x3 Mouth: Mucous membranes are moist Cardiac: Regular rate and rhythm without murmurs Lungs: Clear to auscultation bilaterally without wheezes, crackles or rhonchi Abdomen: Soft, no significant pain in the abdomen or flank at this time. Extremities: No edema Urinary Catheter Management^: Aldana: Cath Placed During This Visit: yes Reason for Continuing Indwelling Catheter: Acute Urinary Retention or Obstruction Urinary Catheter Date of Insertion: 02/08/20 Urinary Catheter Time of Insertion: 02:00 Discharge Data Data Completed and Pending: Completed Studies During Hospitalization Category Date Time Status CT head wo con* 7 0450 Urgent Cat Scan 02/07/20 19:[address] kidney stone 7 4176 Urgent Cat Scan 02/07/20 19:13 Completed XR chest 1V yessi ble [id number] Urgent Exams 02/07/20 19:48 Completed Pending at discharge Category Date Time Status Blood Culture Sta t Lab 02/07/20 20:00 Results Blood Culture Sta t Lab 02/10/20 17:26 Results Labs from last 24 hours 02/12/20 02/12/20 05:39 05:39 WBC 10.6 H RBC 3.86 L Hgb 11.3 L Hct 34.3 L MCV 88.9 MCH 29.3 MCHC 32.9 RDW 13.2 Plt Count 278 MPV 10.4 Neut % (Auto) 78.0 Lymph % (Auto) 12.8 [place] % (Auto) 6.8 Eos % (Auto) 1.2 Baso % (Auto) 0.2 Neut # (Auto) 8.3 H Lymph # (Auto) 1.4 [place] # (Auto) 0.7 Eos # (Auto) 0.1 Baso # (Auto) 0.0 Nucleated RBC % (a uto) 0 Nucleated RBCs # 0.0 Sodium 143 Potassium 3.9 Chloride 111 H Carbon Dioxide 21 L Anion Gap 14.9 BUN 18 Creatinine 1.6 H Glucose 116 H Calculated Osmolal ity 293 Calcium 8.3 L Vitals: Last Vital Signs Temp 98.1 F 02/12/20 04:00 Pulse 74 02/12/20 04:00 Resp 17 02/12/20 04:00 BP 164/72 02/12/20 04:00 Pulse Ox 96 02/12/20 04:00 Discharge Plan Discharge Patient Disposition: Home, Self-Care Condition: Stable Prescriptions: New ciprofloxacin HCl 500 mg tablet 500 mg PO BID 14 Days Qty: 28 RF: 0 Continued escitalopram oxalate [Lexapro] 20 mg tablet 20 mg PO DAILY RF: 0 Discharge Orders: Discharge Order (Routine); Ordered 02/12/20 Ordered By: Chidi Welch Referrals: Markus Allen MD [Primary Care Provider] - 4-7 days Discharge Diet: Advance as tolerated Discharge Activity: Resume usual activity Patient Instructions: Ciprofloxacin (By mouth), Urinary Tract Infection in Men (DC) Activity Restrictions/Additional Instructions: Please make a follow-up appointment with your urologist in [place] over the next 1 to 2 weeks. If you have further concerns, please seek immediate medical attention. 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
[2020-02-12] MEDS: escitalopram 10 mg Tablet 20 MG PO (09:03)
--- NOTE | 2020-02-12 11:07 | PC.NURSE ---
insurance underwriter sales called patient's and left message requesting return call.
--- NOTE | 2020-02-12 11:39 | PC.NURSE ---
RECEIVED VERBAL ORDER FROM DR. WETZEL TO REMOVE TOVAR CATHETER PRIOR TO DISCHARGE.
[2020-02-12 13:02] VITALS: BP 159/72; PULSE 79; RESP 17; TEMP 36.4; O2SAT 95
== END 2020-02-12 13:03 | disposition home or self-care (01) | DRG 690 ==
LOC: ER 02-08 00:23 → MEDSURG 02-08 00:23
PROVIDERS: Emergency Medicine; Family Medicine; Admitting Provider Internal Medicine; PCP Family Medicine; Visit Provider Internal Medicine
DX: N12 Tubulo-interstitial nephritis, not specified as acute or chronic (principal); R78.81 Bacteremia; Z16.24 Resistance to multiple antibiotics; N13.8 Other obstructive and reflux uropathy; N13.6 Pyonephrosis; N18.4 Chronic kidney disease, stage 4 (severe); B96.1 Klebsiella pneumoniae [K. pneumoniae] as the cause of diseases classified elsewhere; N17.9 Acute kidney failure, unspecified; N40.1 Benign prostatic hyperplasia with lower urinary tract symptoms
CPT/HCPCS: 12345; 36415; 51702; 70450; 71045; 74176; 80048; 80053; 81001; 83605; 83735; 84100; 85025; 86141; 87040; 87077; 87086; 87186; 87205; 93005; 96372; 99284; J0696; J0744; J1644; J7030; J7050

== ENCOUNTER 2020-02-14 09:54 | Emergency (ER) | payer MEDICARE, OTHER, SELFPAY ==
--- NOTE | 2020-02-14 10:00 | ED_ITS ---
HPI - Male Genitourinary General: Chief complaint: Back Pain/Injury Stated complaint: BACK AND GROIN PAIN Time Seen by Provider: 02/14/20 09:59 Source: patient Mode of arrival: wheelchair Limitations: no limitations History of Present Illness: HPI Narrative: Patient is an 79-year-old male with a history of urolithiasis here for complaints of left flank and left groin pain. Patient was recently discharged from our hospital 2 days ago after an admission for pyelonephritis. He had underwent a ureter stent for a large ureter stone approximately a month ago at [facility]. Patient subsequently underwent lithotripsy as well for the stone. Patient states he has continued to have pain since he was discharged. He was discharged home on ciprofloxacin after his blood and urine cultures grew Klebsiella. He has not been running fevers. He reports urinary incontinence that is abnormal for him however patient does have dementia and I spoke to who states this is chronic for him and wishes his urologist would place chronic catheter. He does not complain of any dysuria or hematuria. Onset (ago): day(s) Duration: constant Location: left inguinal region and left flank Relieving factors: none Exacerbating factors: none Associated symptoms: Reports urinary incontinence; Deny dysuria, hematuria, nausea or vomiting Review of Systems Const: Denies: fever(s) or chills Eyes: Denies: change in vision or blurry vision Card: Denies: chest pain, palpitations, irregular heart rhythm, lightheadedness, syncope or dyspnea on exertion Resp: Denies: dyspnea, productive cough or pain on inspiration GI: Denies: abdominal pain (L groin pain), nausea, vomiting, heartburn or diarrhea : Reports: flank pain and urinary incontinence; Denies: difficulty urinating, dysuria, oliguria, hematuria or testicular pain Musc: Denies: neck pain, back pain (L flank) or joint pain Skin/Breast: Denies: rash Neuro: Denies: headache(s) PFSH ED PFSH: Medical History (Updated 02/14/20 @ 12:54 by MART Kessler) Bladder 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 Recurrent UTI [place] renal calculus Surgical History (Updated 02/14/20 @ 12:54 by MART Kessler) History of removal of eye Family History (System 12/15/19 @ 10:45 by Windy Gonzalez) Mother , AT AGE 91 LYMPHOMA Cancer Father , AT AGE 72 STOMACH CANCER Cancer Social History (System 12/15/19 @ 10:45 by Windy Gonzalez) Smoking and tobacco status: never smoked Alcohol intake: current Adopted: No Caregiver/support person: No Current occupational status: retired Physical Exam Const: COMMON NORMALS: no acute distress, average body habitus, patient oriented x3, no limitations, healthy appearing, alert and well nourished HENMT: COMMON NORMALS: normocephalic and atraumatic HEAD & SCALP: normocephalic and atraumatic Resp: COMMON NORMALS: normal respiratory effort and clear to auscultation bilaterally AUSCULTATION: clear to auscultation bilaterally Cardio: COMMON NORMALS: regular rate and regular rhythm RATE: regular rate RHYTHM: regular rhythm GI: COMMON NORMALS: Normal to inspection, nondistended, normoactive bowel sounds present, Soft to palpation, No hepatosplenomegaly present and no masses PALPATION: Yes Soft to palpation, Yes Tenderness to palpation present (GI) (L groin) and Yes No hepatosplenomegaly present : BLADDER/KIDNEY EXAM: Yes CVA tenderness Back/Pelvis: GENERAL BACK: Yes CVA tenderness CVA tenderness: left Extremity: COMMON NORMALS: normal to inspection Neuro: COMMON NORMALS: patient oriented x3 SENSORIUM/ORIENTATION: Yes alert Skin: COMMON NORMALS: no rashes or lesions noted GENERAL SKIN EXAM: no rashes or lesions noted Course Vital Signs: Vital signs: Vital Signs Temperature 97.6 F 02/14/20 10:03 Pulse Rate 56 L 02/14/20 10:03 Respiratory Rate 18 02/14/20 10:03 Blood Pressure 153/64 02/14/20 10:03 Pulse Oximetry 99 02/14/20 10:03 MDM - Male MDM Narrative: Medical decision making narrative: Patient is not tachycardic or febrile. His white count is 10.4. His UA seems to be improving when compared to the UA he was admitted with. Repeat CT scan shows improving hydronephrosis. His stent is patent. There was air in his bladder but I spoke to the radiologist and this was present last time due to recent instrumentation. He states air on today's exam is less and does not seem consistent with emphysematous cystitis. I reviewed discharge summary [address] Welch. Patient was discharged from the hospital on ciprofloxacin. After reviewing patient's blood cultures he also had a positive culture for MRSA. Since this was not addressed in his discharge summary I spoke to Dr. Welch who stated he was called with positive results yesterday and called in a prescription for Bactrim. I spoke to the who picked something up from the pharmacy yesterday but is not sure if it was Bactrim. I will go ahead and write her another prescription for this just in case. They have a follow-up appointment with Dr. Allen on Wednesday at 8:10 AM. They have an appointment with his urologist at [facility] on the for stent removal. Lab Data: Labs: Lab Results 02/14/20 02/14/20 02/14/20 Range/Units 10:20 10:20 10:20 WBC 10.4 H (4.0-10.0) 10^3/ uL RBC 4.20 (4.1-5.3) 10^6/u L Hgb 12.1 (11.7-16.6) g/dL Hct 37.4 L (42.0-52.0) % MCV 89.0 (80-94) fL MCH 28.8 (28.0-34.0) pg MCHC 32.4 (30.0-36.0) g/dL RDW 13.1 (12.1-15.1) % Plt Count 379 (130-400) 10^3/c mm MPV 10.0 (7.4-10.4) fL Neut % (Auto) 81.1 % Lymph % (Auto) 9.8 % [place] % (Auto) 6.3 % Eos % (Auto) 1.1 % Baso % (Auto) 0.5 % Neut # (Auto) 8.4 H (1.8-7.7) 10^3/u L Lymph # (Auto) 1.0 (0.8-4.8) 10^3/u L [place] # (Auto) 0.7 (0.2-0.9) 10^3/u L Eos # (Auto) 0.1 (0.0-0.8) 10^3/u L Baso # (Auto) 0.1 (0.0-0.1) 10^3/u L Nucleated RBC % (a uto) 0 % Nucleated RBCs # 0.0 /100WBC Sodium 140 (136-145) mmol/L Potassium 3.5 (3.5-5.1) mmol/L Chloride 106 (98-107) mmol/L Carbon Dioxide 22 (22-29) mmol/L Anion Gap 15.5 (5-19) BUN 18 (8-23) mg/dL Creatinine 1.8 H (0.7-1.2) mg/dL Glucose 139 H (65-115) mg/dL Calculated Osmolal ity 289 (285-295) mOsm/k g Lactate 2.1 (0.5-2.2) mmol/L Calcium 9.4 (8.5-10.5) mg/dL Total Bilirubin 0.3 (0.15-1.2) mg/dL AST 21 (0-40) U/L ALT 41 (0-41) U/L Alkaline Phosphata se 273 H (40-130) IU/L Total Protein 6.9 (6.6-8.7) g/dL Albumin 3.0 L (3.5-5.2) g/dL Globulin 3.9 (1.3-4.6) g/dL Urine Color (Yellow) Urine Appearance (CLEAR) Urine pH (5-7) Ur Specific Gravit y (1.005-1.030) Urine Protein (Negative) Urine Glucose (UA) (Normal) Urine Ketones (Negative) Urine Blood (Negative) Urine Nitrate (Negative) Urine Bilirubin (NEGATIVE) Urine Urobilinogen (Negative) mg/dL Ur Leukocyte [place] (Negative) Urine RBC (0-2) /hpf Urine WBC (0-5) /hpf Ur Squamous Epith Cells (0-5) Urine Bacteria (NONE) 05/20/20 Range/Units 11:16 WBC (4.0-10.0) 10^3/ uL RBC (4.1-5.3) 10^6/u L Hgb (11.7-16.6) g/dL Hct (42.0-52.0) % MCV (80-94) fL MCH (28.0-34.0) pg MCHC (30.0-36.0) g/dL RDW (12.1-15.1) % Plt Count (130-400) 10^3/c mm MPV (7.4-10.4) fL Neut % (Auto) % Lymph % (Auto) % [place] % (Auto) % Eos % (Auto) % Baso % (Auto) % Neut # (Auto) (1.8-7.7) 10^3/u L Lymph # (Auto) (0.8-4.8) 10^3/u L [place] # (Auto) (0.2-0.9) 10^3/u L Eos # (Auto) (0.0-0.8) 10^3/u L Baso # (Auto) (0.0-0.1) 10^3/u L Nucleated RBC % (a uto) % Nucleated RBCs # /100WBC Sodium (136-145) mmol/L Potassium (3.5-5.1) mmol/L Chloride (98-107) mmol/L Carbon Dioxide (22-29) mmol/L Anion Gap (5-19) BUN (8-23) mg/dL Creatinine (0.7-1.2) mg/dL Glucose (65-115) mg/dL Calculated Osmolal ity (285-295) mOsm/k g Lactate (0.5-2.2) mmol/L Calcium (8.5-10.5) mg/dL Total Bilirubin (0.15-1.2) mg/dL AST (0-40) U/L ALT (0-41) U/L Alkaline Phosphata se (40-130) IU/L Total Protein (6.6-8.7) g/dL Albumin (3.5-5.2) g/dL Globulin (1.3-4.6) g/dL Urine Color Yellow (Yellow) Urine Appearance Sl cloudy A (CLEAR) Urine pH 6 (5-7) Ur Specific Gravit y 1.010 (1.005-1.030) Urine Protein Neg (Negative) Urine Glucose (UA) Norm (Normal) Urine Ketones Negative (Negative) Urine Blood 3+ H (Negative) Urine Nitrate Negative (Negative) Urine Bilirubin Neg (NEGATIVE) Urine Urobilinogen Norm (Negative) mg/dL Ur Leukocyte [place] Trace H (Negative) Urine RBC 10-15 H (0-2) /hpf Urine WBC 5-10 H (0-5) /hpf Ur Squamous Epith Cells 0-4 H (0-5) Urine Bacteria 1+ H (NONE) Imaging Data: CT renal: Radiologist's impression: [facility] [address] [place] [address] CT Scan Report Signed Patient: Kalin Taylor JR Unit #: [id number] : 1940 Age/Sex: 79 / M ADM Date: 02/14/20 Loc: ER Room/Bed: Attending Dr: Ordering Provider/Ordering MD: Carina Neves Date of Service: 02/14/20 Procedure(s): CT kidney stone 29868 Accession Number(s): [id number] Report Number: [id number] WS: [id number] CT ABDOMEN PELVIS TECHNIQUE: Noncontrast CT of the abdomen and pelvis with coronal and sagittal reformatted images. CLINICAL INFORMATION: L flank/groin pain COMPARISON: February 07, 2020 DLP: 1002.[address] scans at [facility] use at least one of these dose optimization techniques: automated exposure control; mA and/or kV adjustment per patient size (includes targeted exams where dose is matched to clinical indication); or iterative reconstruction. FINDINGS: Noncontrast liver is normal. Sludge or small gallstones in the gallbladder. Noncontrast spleen is normal. Normal GE junction. Partially calcified nodule right lower lobe measuring 14 mm. Several noncalcified pulmonary nodules in both lower lobes partially visualized. The largest in the left lower lobe measuring 8 mm. Small left pleural effusion. Thickening of the adrenal glands bilaterally unchanged. Right kidney and ureter are normal in appearance. Left double-J ureteral stent in place. No hydronephrosis. This is improved from previous. Low-attenuation lesions left kidney likely renal cysts. Diffuse bladder wall thickening is unchanged. Ventral bladder diverticulum measuring 1.6 cm is unchanged. Additional smaller bladder diverticuli. Enlarged prostate. Recommend correlation PSA. Right inguinal hernia containing loops of small bowel. No evidence of strangulation. This is unchanged in appearance. Aortic calcification with moderate aortic atheromatous disease. Small abdominal aortic aneurysm measuring 2.5 x 2.6 CM. . IMPRESSION: 1. Left double-J ureteral stent in place. Improved left hydronephrosis. 2. No hydronephrosis in right kidney. 3. Sludge or microlithiasis in the gallbladder. 4. Multiple small bladder diverticuli the largest ventral bladder wall with small amount of air measuring 1.6 cm. 5. Right inguinal hernia containing loops of small bowel unchanged without evidence of strangulation. 6. Enlarged prostate. Recommend correlation PSA. 7. Multiple noncalcified pulmonary nodules in the lung bases. This can be followed up with chest CT. Metastatic disease not excluded. Dictated By: Rommel Galvez MD Signed By: Rommel Galvez MD Signed Date/Time: 02/14/20 1124 DD/ 1111 Discharge Plan Discharge Patient Disposition: Home, Self-Care Clinical Impression: Acute cystitis with hematuria, History of ureter stent, Positive blood culture Condition: Stable Prescriptions: New hydrocodone-acetaminophen 5-325 mg tablet 1 tab PO Q6H PRN (Reason: pain) Qty: 14 RF: 0 Continued Bactrim DS 800-160 mg Tablet 1 tab PO BID 10 Days Qty: 20 RF: 0 No Action escitalopram oxalate [Lexapro] 20 mg tablet 20 mg PO DAILY RF: 0 ciprofloxacin HCl 500 mg tablet 500 mg PO BID 14 Days Qty: 28 RF: 0 Discharge Orders: Discharge Order (Routine); Ordered 02/14/20 Ordered By: Carina Neves Referrals: Markus Allen MD [Primary Care Provider] - Discharge Diet: Usual diet Discharge Activity: Increase activity as tolerated Activity Restrictions/Additional Instructions: TO : As discussed have patient continue taking the Ciprofloxacin as directed. You have indicated that you may have picked up a prescription for patient's Bactrim yesterday but were not sure so I went ahead and wrote you another prescription for this just in case. I have also provided patient pain medications to help with his discomfort. As discussed he has a follow-up appointment with Dr. Allen on Wednesday at 8:10 AM. He also has an appointment on the at [facility] for stent removal. Please return to the emergency department for any concerns you or he may have. Hope he gets to feeling better soon. Coding Level of Care Code ED Assistant Professor Of Criminal Justice for [employer]ynor Fwd Exam Comprehensive
[2020-02-14 10:03] VITALS: BP 153/64; PULSE 56; RESP 18; TEMP 36.4; O2SAT 99; BMI 26.6
--- NOTE | 2020-02-14 10:13 | CT_ITS ---
WS: [id number] CT ABDOMEN PELVIS TECHNIQUE: Noncontrast CT of the abdomen and pelvis with coronal and sagittal reformatted images. CLINICAL INFORMATION: L flank/groin pain COMPARISON: February 07, 2020 DLP: 1002.[address] scans at [facility] use at least one of these dose optimization techniques: automat ed exposure control; mA and/or kV adjustment per patient size (includes targeted exams where dose is matched to clinical indication); or iterative reconstruction. FINDINGS: Noncontrast liver is normal. Sludge or small gallstones in the gallbladder. Noncontrast spleen is nor mal. Normal GE junction. Partially calcified nodule right lower lobe measuring 14 mm. Several noncalc ified pulmonary nodules in both lower lobes partially visualized. The largest in the left lower lobe measuring 8 mm. Small left pleural effusion. Thickening of the adrenal glands bilaterally unchanged. Right kidney and ureter are normal in appeara nce. Left double-J ureteral stent in place. No hydronephrosis. This is improved from previous. Low-at tenuation lesions left kidney likely renal cysts. Diffuse bladder wall thickening is unchanged. Ventral bladder diverticulum measuring 1.6 cm is unchanged. Additional smaller bladder diverticuli. E nlarged prostate. Recommend correlation PSA. Right inguinal hernia containing loops of small bowel. N o evidence of strangulation. This is unchanged in appearance. Aortic calcification with moderate aortic atheromatous disease. Small abdominal aortic aneurysm measu ring 2.5 x 2.6 CM. . IMPRESSION: 1. Left double-J ureteral stent in place. Improved left hydronephrosis. 2. No hydronephrosis in right kidney. 3. Sludge or microlithiasis in the gallbladder. 4. Multiple small bladder diverticuli the largest ventral bladder wall with small amount of air drew suring 1.6 cm. 5. Right inguinal hernia containing loops of small bowel unchanged without evidence of strangulation . 6. Enlarged prostate. Recommend correlation PSA. 7. Multiple noncalcified pulmonary nodules in the lung bases. This can be followed up with chest CT. Metastatic disease not excluded.
[2020-02-14 10:32] LABS: Basophils # 0.1 10^3/uL (0.0-0.1); Basophils % 0.5 %; Eosinophils # 0.1 10^3/uL (0.0-0.8); Eosinophils % 1.1 %; Hematocrit 37.4 % (42.0-52.0); Hemoglobin 12.1 g/dL (11.7-16.6); Lymphocytes % 9.8 %; Mean Corpuscular HGB Conc 32.4 g/dL (30.0-36.0); Mean Corpuscular Hemoglobin 28.8 pg (28.0-34.0); Monocytes # 0.7 10^3/uL (0.2-0.9); Monocytes % 6.3 %; Neutrophils # 8.4 10^3/uL (1.8-7.7); Neutrophils % 81.1 %; Nucleated Red Blood Cells % 0 %; Platelet Count 379 10^3/cmm (130-400); Red Cell Distribution Width 13.1 % (12.1-15.1); White Blood Count 10.4 10^3/uL (4.0-10.0)
--- NOTE | 2020-02-14 10:51 | PC.NURSE ---
patient to xray
[2020-02-14 10:59] LABS: Alanine Aminotransferase 41 U/L (0-41); Alkaline Phosphatase 273 IU/L (40-130); Anion Gap 15.5 (5-19); Aspartate Amino Transferase 21 U/L (0-40); Blood Urea Nitrogen 18 mg/dL (8-23); Calcium 9.4 mg/dL (8.5-10.5); Carbon Dioxide 22 mmol/L (22-29); Chloride 106 mmol/L (98-107); Globulin 3.9 g/dL (1.3-4.6); Glucose 139 mg/dL (65-115); Lactate (Lactic Acid level) 2.1 mmol/L (0.5-2.2); Osmolality Calculated 289 mOsm/kg (285-295); Potassium 3.5 mmol/L (3.5-5.1); Sodium 140 mmol/L (136-145); Total Bilirubin 0.3 mg/dL (0.15-1.2); Total Protein 6.9 g/dL (6.6-8.7)
[2020-02-14 12:16] LABS: Add Urine Microscopic? YES; Bilirubin Urine Neg (NEGATIVE); Blood Urine 3+ (Negative); Glucose Urine UA Norm (Normal); Ketones Urine Negative (Negative); Leukocyte Esterase Urine Trace (Negative); Nitrate Urine Negative (Negative); Protein Urine Neg (Negative); Urine Color Yellow (Yellow); Urobilinogen Urine Norm (Negative); pH Urine 6 (5-7)
[2020-02-14 12:17] LABS: Add Urine Culture? Yes; Bacteria Urine 1+; Squamous Epithelial Cell Urine 0-4 (0-5)
[2020-02-14 13:15] VITALS: BP 149/66; PULSE 53; RESP 18; O2SAT 96
== END 2020-02-14 13:18 | disposition home or self-care (01) ==
PROVIDERS: Emergency Provider Physician Assistant; PCP Family Medicine
DX: N30.01 Acute cystitis with hematuria (principal); Z87.440 Personal history of urinary (tract) infections
CPT/HCPCS: 12345; 36415; 74176; 80053; 81001; 83605; 85025; 87040; 87077; 87086; 87186; 99282; 99283; A9270

== ENCOUNTER 2020-06-13 13:53 | Emergency (ER) | payer MEDICARE, OTHER, SELFPAY ==
[2020-06-13] VITALS (7 sets, daily range): BP systolic 160–189; BP diastolic 73–81; PULSE 62–72; RESP 17–21; TEMP 36.4; O2SAT 92–98; BMI 27.3
--- NOTE | 2020-06-13 14:24 | XRR_ITS ---
PROCEDURE INFORMATION: Exam: XR Chest, 1 View Exam date and time: 06/13/2020 2:42 PM Age: 79 years old Clinical indication: Right-sided chest pain; Additional info: Cp TECHNIQUE: Imaging protocol: XR of the chest Views: 1 view. COMPARISON: CR XR chest 1V portable [id number] 02/07/2020 8:04 PM FINDINGS: Lungs: Patchy interstitial densities are present in the right upper lobe these findings are similar to prior examination. These changes likely represent chronic interstitial lung disease Pleural space: Unremarkable. No pleural effusion. No pneumothorax. Heart/Mediastinum: Unremarkable. No cardiomegaly. Bones/joints: Unremarkable. XR/XR chest 1V portable [id number] IMPRESSION: 1. Stable chronic interstitial lung disease in the right upper lobe 2. Otherwise negative examination
--- NOTE | 2020-06-13 14:24 | ECG_ITS ---
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 Measurements Intervals [place] Rate: 70 P: 72 ID: [id number] QRS: -77 QRSD: 148 T: 46 QT: 404 QTc: 436 Interpretive Statements SINUS RHYTHM RIGHT BUNDLE BRANCH BLOCK [120+ ms QRS DURATION, UPRIGHT V1, 40+ ms S IN I/aVL/V4/V5/V6] INFERIOR MYOCARDIAL INFARCTION [40+ ms Q WAVE AND/OR ST/T ABNORMALITY IN II/aVF], PROBABLY OLD Compared to ECG 02/07/2020 20:22:23 No significant changes Electronically Signed On 06-13-2020 19:41:24 CDT by Braydon Marcano M.D. [email or web address]
[2020-06-13 14:53] LABS: Basophils # 0.1 10^3/uL (0.0-0.1); Eosinophils # 0.2 10^3/uL (0.0-0.8); Eosinophils % 2.6 %; Hematocrit 41.4 % (42.0-52.0); Hemoglobin 13.6 g/dL (11.7-16.6); Lymphocytes # 1.6 10^3/uL (0.8-4.8); Lymphocytes % 26.2 %; Mean Corpuscular HGB Conc 32.9 g/dL (30.0-36.0); Mean Corpuscular Hemoglobin 28.9 pg (28.0-34.0); Mean Corpuscular Volume 87.9 fL (80-94); Monocytes # 0.6 10^3/uL (0.2-0.9); Monocytes % 10.2 %; Neutrophils % 59.8 %; Nucleated Red Blood Cells % 0 %; Platelet Count 206 10^3/cmm (130-400); Red Blood Count 4.71 10^6/uL (4.1-5.3); Red Cell Distribution Width 12.1 % (12.1-15.1); White Blood Count 6.2 10^3/uL (4.0-10.0)
--- NOTE | 2020-06-13 15:02 | ED_ITS ---
Documented by User: AMAN Abraham 06/13/20 17:25 HPI - Chest Pain General: Chief Complaint: Chest Pain Stated Complaint: CP Time Seen by Provider: 06/13/20 14:19 History of Present Illness: HPI narrative: 79-year-old male patient presents to the emergency department with 2-hour onset of right-sided chest pain with right arm numbness. He reports pain is sharp, has improved since his arrival here. He denies cardiac history. He denies nausea vomiting diarrhea fever or chills. He reports onset was at rest. He reports recent kidney stone removal at [place] 3 weeks ago. Occurred on the left side. He reports surgical site healing, states pain has been present on the left lower quadrant of his abdomen since the surgery. He reports no change with pain. MD complaint: chest pain and chest discomfort Onset (ago): hour(s) (2) Timing of current episode: constant Prior episodes: No Onset: during rest and awoke with symptoms Pain location: right chest Pain radiation: right arm Severity: moderate Quality: aching and sharp Relieving factors: rest Exacerbating factors: exertion Associated symptoms: Reports abdominal pain (LLQ pain - abdomen); Deny diaphoresis, dyspnea, fever(s) or palpitations Review of Systems General: Reports: 10 or more systems reviewed and unremarkable except in HPI and below Const: Denies: fever(s), chills or diaphoresis Eyes: Denies: blurry vision or eye redness ENMT: Denies: throat pain, dental pain or disequilibrium Card: Reports: chest pain; Denies: palpitations, irregular heart rhythm, edema or dyspnea on exertion Resp: Denies: dyspnea, productive cough, non-productive cough or wheezing GI: Reports: abdominal pain (LLQ pain - abdomen) : Denies: dysuria Musc: Reports: other (right arm numbness); Denies: neck pain or back pain Skin/Breast: Denies: rash or pruritus Neuro: Denies: headache(s), weakness in extremities or behavioral changes Nigel/Lymph: Denies: easy bruising PFS ED PFSH: Medical History (Updated 06/13/20 @ 20:25 by DANNI Aviles) Bladder 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 Recurrent UTI Staghorn renal calculus Surgical History (Updated 02/22/20 @ 00:00 by ) History of removal of eye Family History (System 12/15/19 @ 10:45 by Windy Gonzalez) Mother , AT AGE 91 LYMPHOMA Cancer Father , AT AGE 72 STOMACH CANCER Cancer Social History (System 12/15/19 @ 10:45 by Windy Gonzalez) Smoking and tobacco status: never smoked Alcohol intake: current Adopted: No Caregiver/support person: No Current occupational status: retired Physical Exam Const: COMMON NORMALS: no acute distress, patient oriented x3, healthy appearing and alert GENERAL APPEARANCE: cooperative, comfortable and well hydrated HENMT: COMMON NORMALS: normocephalic, Normal external nose present and moist oral mucous membranes HEAD & SCALP: normocephalic NOSE: Normal external nose present Eye: COMMON NORMALS: Equal, round and reactive pupils present and EOMs intact bilaterally GENERAL EYE: appearance normal, both eyes and all related structures PUPIL: Yes Equal, round and reactive pupils present Neck/C-Spine: COMMON NORMALS: full ROM, no lymphadenopathy and supple GENERAL: Yes normal visual inspection and Yes trachea midline CERVICAL SPINE: Yes cervical ROM normal, No pain with cervical ROM, No Cervical spine tenderness and No Paracervical muscle tenderness Lymph: LYMPHATIC: no lymphadenopathy noted Chest: COMMONS NORMALS: normal inspection of the chest and normal palpation of entire chest wall CHEST: No localized rib tenderness with anteroposterior compression Resp: COMMON NORMALS: normal respiratory effort and clear to auscultation bilaterally AUSCULTATION: clear to auscultation bilaterally Cardio: COMMON NORMALS: regular rhythm, S1 normal heart sound present, S2 normal heart sound present and Peripheral pulses 2+ throughout RHYTHM: regular rhythm HEART SOUNDS: S1 normal heart sound present and S2 normal heart sound present PERIPHERAL PULSES: Peripheral pulses 2+ throughout GI: COMMON NORMALS: Soft to palpation INSPECTION: Yes normal to inspection and Yes incision (left posterior flank - CD & I with healing, no erythema/ecchymosis) PALPATION: Yes Soft to palpation and Yes Tenderness to palpation present (GI) Details: LLQ : COMMON NORMALS: Yes no CVA tenderness BLADDER/KIDNEY EXAM: Yes no CVA tenderness Back/Pelvis: COMMON NORMALS: no CVA tenderness, thoracic and lumbar spine normal to inspection and thoraco-lumbar ROM normal THORACIC SPINE/UPPER BACK: Yes normal to inspection LUMBAR SPINE/LOWER BACK: Yes normal to inspection Extremity: COMMON NORMALS: normal to inspection and capillary refill normal Neuro: COMMON NORMALS: patient oriented x3 and no focal motor deficits SENSORIUM/ORIENTATION: Yes alert Psych: COMMON NORMALS: mental status grossly normal, Normal thought process present and cooperative ACTIVITY/MOTOR BEHAVIOR: Yes appropriate eye contact THOUGHT PROCESS: Normal thought process present Skin: COMMON NORMALS: no rashes or lesions noted and turgor normal GENERAL SKIN EXAM: no rashes or lesions noted and turgor normal Course ED course: 79-year-old male evaluated for chest pain, awaiting 2-hour troponin/EKG, CT scan of the chest results pending at this time, transfer of care to Jun Ray NP. Vital Signs: Vital signs: Vital Signs Temperature 97.5 F L 06/13/20 14:01 Pulse Rate 68 06/13/20 16:54 Respiratory Rate 18 06/13/20 16:54 Blood Pressure 160/81 06/13/20 16:54 Pulse Oximetry 92 06/13/20 16:54 MDM - Chest Pain Lab Data: Labs: Lab Results 06/13/20 06/13/20 06/13/20 Range/Units 14:44 14:44 14:44 WBC 6.2 (4.0-10.0) 10^3/ uL RBC 4.71 (4.1-5.3) 10^6/u L Hgb 13.6 (11.7-16.6) g/dL Hct 41.4 L (42.0-52.0) % MCV 87.9 (80-94) fL MCH 28.9 (28.0-34.0) pg MCHC 32.9 (30.0-36.0) g/dL RDW 12.1 (12.1-15.1) % Plt Count 206 (130-400) 10^3/c mm MPV 10.0 (7.4-10.4) fL Neut % (Auto) 59.8 % Lymph % (Auto) 26.2 % [place] % (Auto) 10.2 % Eos % (Auto) 2.6 % Baso % (Auto) 1.0 % Neut # (Auto) 3.70 (1.8-7.7) 10^3/u L Lymph # (Auto) 1.6 (0.8-4.8) 10^3/u L [place] # (Auto) 0.6 (0.2-0.9) 10^3/u L Eos # (Auto) 0.2 (0.0-0.8) 10^3/u L Baso # (Auto) 0.1 (0.0-0.1) 10^3/u L Nucleated RBC % (a uto) 0 % Nucleated RBCs # 0.0 /100WBC PT 12.60 (12.1-14.9) SECO NDS INR 0.92 (0.8-1.2) D-Dimer 0.81 H (0-0.59) ug/mIFE U Sodium 136 (136-145) mmol/L Potassium 4.2 (3.5-5.1) mmol/L Chloride 103 (98-107) mmol/L Carbon Dioxide 24 (22-29) mmol/L Anion Gap 13.2 (5-19) BUN 20 (8-23) mg/dL Creatinine 1.7 H (0.7-1.2) mg/dL GFR Calculation Not Reportable Glucose 115 (65-115) mg/dL Calculated Osmolal ity 286 (285-295) mOsm/k g Calcium 9.0 (8.5-10.5) mg/dL Total Bilirubin 0.3 (0.15-1.2) mg/dL AST 13 (0-40) U/L ALT 15 (0-41) U/L Alkaline Phosphata se 122 (40-130) IU/L Troponin T Baselin e (0-15) ng/L Troponin T 120 Min [place] (0-15) ng/L Delta Troponin T (0-10) ABS# Total Protein 7.3 (6.6-8.7) g/dL Albumin 3.9 (3.5-5.2) g/dL Globulin 3.4 (1.3-4.6) g/dL Urine Color (Yellow) Urine Appearance (CLEAR) Urine pH (5-7) Ur Specific Gravit y (1.005-1.030) Urine Protein (Negative) Urine Glucose (UA) (Normal) Urine Ketones (Negative) Urine Blood (Negative) Urine Nitrate (Negative) Urine Bilirubin (Negative) Urine Urobilinogen (Negative) mg/dL Ur Leukocyte Mary ase (Negative) 09/17/20 09/17/20 09/17/20 Range/Units 14:44 15:50 16:56 WBC (4.0-10.0) 10^3/ uL RBC (4.1-5.3) 10^6/u L Hgb (11.7-16.6) g/dL Hct (42.0-52.0) % MCV (80-94) fL MCH (28.0-34.0) pg MCHC (30.0-36.0) g/dL RDW (12.1-15.1) % Plt Count (130-400) 10^3/c mm MPV (7.4-10.4) fL Neut % (Auto) % Lymph % (Auto) % [place] % (Auto) % Eos % (Auto) % Baso % (Auto) % Neut # (Auto) (1.8-7.7) 10^3/u L Lymph # (Auto) (0.8-4.8) 10^3/u L [place] # (Auto) (0.2-0.9) 10^3/u L Eos # (Auto) (0.0-0.8) 10^3/u L Baso # (Auto) (0.0-0.1) 10^3/u L Nucleated RBC % (a uto) % Nucleated RBCs # /100WBC PT (12.1-14.9) SECO NDS INR (0.8-1.2) D-Dimer (0-0.59) ug/mIFE U Sodium (136-145) mmol/L Potassium (3.5-5.1) mmol/L Chloride (98-107) mmol/L Carbon Dioxide (22-29) mmol/L Anion Gap (5-19) BUN (8-23) mg/dL Creatinine (0.7-1.2) mg/dL GFR Calculation Glucose (65-115) mg/dL Calculated Osmolal ity (285-295) mOsm/k g Calcium (8.5-10.5) mg/dL Total Bilirubin (0.15-1.2) mg/dL AST (0-40) U/L ALT (0-41) U/L Alkaline Phosphata se (40-130) IU/L Troponin T Baselin e 20 H (0-15) ng/L Troponin T 120 Min [place] 19.57 H (0-15) ng/L Delta Troponin T -0.43 L (0-10) ABS# Total Protein (6.6-8.7) g/dL Albumin (3.5-5.2) g/dL Globulin (1.3-4.6) g/dL Urine Color Yellow (Yellow) Urine Appearance Clear (CLEAR) Urine pH 6.5 (5-7) Ur Specific Gravit y 1.010 (1.005-1.030) Urine Protein Neg (Negative) Urine Glucose (UA) Norm (Normal) Urine Ketones Negative (Negative) Urine Blood Neg (Negative) Urine Nitrate Negative (Negative) Urine Bilirubin Neg (Negative) Urine Urobilinogen Norm (Negative) mg/dL Ur Leukocyte Mary ase Negative (Negative) Imaging Data^: CXR: Radiologist's impression: [address] [address] XRay Report Signed Patient: Kalin Taylor JRUnit #: [id number] : [id number]#:[id number] Age/Sex: 79 / MADM Date: 06/13/20 Loc: ERRoom/Bed: Attending Dr: Ordering Provider/Ordering MD: Mini Bailey Date of Service: 06/13/20 Procedure(s): XR chest 1V portable [id number] Accession Number(s): [id number] Report Number: [id number] PROCEDURE INFORMATION: Exam: XR Chest, 1 View Exam date and time: 06/13/2020 2:42 PM Age: 79 years old Clinical indication: Right-sided chest pain; Additional info: Cp TECHNIQUE: Imaging protocol: XR of the chest Views: 1 view. COMPARISON: CR XR chest 1V portable [id number] 02/07/2020 8:04 PM FINDINGS: Lungs: Patchy interstitial densities are present in the right upper lobe these findings are similar to prior examination. These changes likely represent chronic interstitial lung disease Pleural space: Unremarkable. No pleural effusion. No pneumothorax. Heart/Mediastinum: Unremarkable. No cardiomegaly. Bones/joints: Unremarkable. XR/XR chest 1V portable [id number] IMPRESSION: 1. Stable chronic interstitial lung disease in the right upper lobe 2. Otherwise negative examination Dictated By:Aryan Gilmore Signed By:Mj Gilmore Date/Time:06/13/201547 DD/ 46 EKG Data^: EKG 1: EKG interpretation date: 06/13/20 EKG interpretation time: 14:07 Prior EKG tracings: available for review Interpretation: Sinus rhythm, right bundle branch block, abnormal EKG, probably old inferior myocardial infarction Discharge Plan Discharge Patient Disposition: Home Clinical Impression: Atypical chest pain, Right-sided sensory deficit present Condition: Stable Prescriptions: No Action escitalopram oxalate [Lexapro] 20 mg tablet 20 mg PO DAILY PRN (Reason: unknown) RF: 0 Discharge Orders: Discharge Order (Routine); Ordered 06/13/20 Ordered By: Rigoberto Ray Referrals: Markus Allen MD [Primary Care Provider] - Discharge Diet: Usual diet Discharge Activity: Increase activity as tolerated Activity Restrictions/Additional Instructions: Follow-up with Dr. Hudosn's office first thing in the morning. He wants to see him tomorrow in the office. Return to the emergency department for any new concerns. 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 Awaiting second troponin and CT scan results. Patient resting well. 1750, CT scan of the chest was negative for any acute abnormality. Troponin was negative on the delta. Reviewed exam with patient with recommendations for treatment. Patient was concerned due to continued numbness in the right arm. NIH scale was completed with scale 1 level due to sensory deficit on the right side. 1800, reviewed with Dr. Kim, who agreed to CT of brain, and consideration of observation admission for further evaluation and treatment. 1999, CT of brain negative for acute abnormality. patient is uncomfortable about going home. Discussed with Dr. Kim recommended discussion with hospitalist for further treatment recommendations. wjw 2014, discussed with Dr. Allen, he wants to see patient in office first thing tomorrow morning. wjw. Vital Signs: Vital signs: Vital Signs Temperature 97.5 F L 06/13/20 14:01 Pulse Rate 68 06/13/20 16:54 Respiratory Rate 18 06/13/20 16:54 Blood Pressure 160/81 06/13/20 16:54 Pulse Oximetry 92 06/13/20 16:54 MDM - Chest Pain MDM Narrative: Medical decision making narrative: Patient comes in today for complaints of right-sided chest pain that resolved throughout hospital visit. Patient was concerned due to increased numbness in the right extremity. Patient had NIH scale of 2 due to sensory deficit on the right side. Patient good mobility and was able to ambulate without difficulty. No other neural deficit was noted. 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 Differential diagnosis includes ACS, TIA, CVA, anxiety. Laboratory values noted no bump in the troponin, delta troponin was negative. Laboratory values noted some mild renal insufficiency. CTA of the chest was negative. CTA of the head showed no new abnormality. Reviewed exam with Dr. Allen who wanted to see the patient tomorrow morning in the office. Reviewed this with family who reported understanding agreed to plan. Lab Data: Labs: Lab Results 06/13/20 06/13/20 06/13/20 Range/Units 14:44 14:44 14:44 WBC 6.2 (4.0-10.0) 10^3/ uL RBC 4.71 (4.1-5.3) 10^6/u L Hgb 13.6 (11.7-16.6) g/dL Hct 41.4 L (42.0-52.0) % MCV 87.9 (80-94) fL MCH 28.9 (28.0-34.0) pg MCHC 32.9 (30.0-36.0) g/dL RDW 12.1 (12.1-15.1) % Plt Count 206 (130-400) 10^3/c mm MPV 10.0 (7.4-10.4) fL Neut % (Auto) 59.8 % Lymph % (Auto) 26.2 % [place] % (Auto) 10.2 % Eos % (Auto) 2.6 % Baso % (Auto) 1.0 % Neut # (Auto) 3.70 (1.8-7.7) 10^3/u L Lymph # (Auto) 1.6 (0.8-4.8) 10^3/u L [place] # (Auto) 0.6 (0.2-0.9) 10^3/u L Eos # (Auto) 0.2 (0.0-0.8) 10^3/u L Baso # (Auto) 0.1 (0.0-0.1) 10^3/u L Nucleated RBC % (a uto) 0 % Nucleated RBCs # 0.0 /100WBC PT 12.60 (12.1-14.9) SECO NDS INR 0.92 (0.8-1.2) D-Dimer 0.81 H (0-0.59) ug/mIFE U Sodium 136 (136-145) mmol/L Potassium 4.2 (3.5-5.1) mmol/L Chloride 103 (98-107) mmol/L Carbon Dioxide 24 (22-29) mmol/L Anion Gap 13.2 (5-19) BUN 20 (8-23) mg/dL Creatinine 1.7 H (0.7-1.2) mg/dL GFR Calculation Not Reportable Glucose 115 (65-115) mg/dL Calculated Osmolal ity 286 (285-295) mOsm/k g Calcium 9.0 (8.5-10.5) mg/dL Total Bilirubin 0.3 (0.15-1.2) mg/dL AST 13 (0-40) U/L ALT 15 (0-41) U/L Alkaline Phosphata se 122 (40-130) IU/L Troponin T Baselin e (0-15) ng/L Troponin T 120 Min [place] (0-15) ng/L Delta Troponin T (0-10) ABS# Total Protein 7.3 (6.6-8.7) g/dL Albumin 3.9 (3.5-5.2) g/dL Globulin 3.4 (1.3-4.6) g/dL Urine Color (Yellow) Urine Appearance (CLEAR) Urine pH (5-7) Ur Specific Gravit y (1.005-1.030) Urine Protein (Negative) Urine Glucose (UA) (Normal) Urine Ketones (Negative) Urine Blood (Negative) Urine Nitrate (Negative) Urine Bilirubin (Negative) Urine Urobilinogen (Negative) mg/dL Ur Leukocyte Mary ase (Negative) 06/13/20 06/13/20 06/13/20 Range/Units 14:44 15:50 16:56 WBC (4.0-10.0) 10^3/ uL RBC (4.1-5.3) 10^6/u L Hgb (11.7-16.6) g/dL Hct (42.0-52.0) % MCV (80-94) fL MCH (28.0-34.0) pg MCHC (30.0-36.0) g/dL RDW (12.1-15.1) % Plt Count (130-400) 10^3/c mm MPV (7.4-10.4) fL Neut % (Auto) % Lymph % (Auto) % [place] % (Auto) % Eos % (Auto) % Baso % (Auto) % Neut # (Auto) (1.8-7.7) 10^3/u L Lymph # (Auto) (0.8-4.8) 10^3/u L [place] # (Auto) (0.2-0.9) 10^3/u L Eos # (Auto) (0.0-0.8) 10^3/u L Baso # (Auto) (0.0-0.1) 10^3/u L Nucleated RBC % (a uto) % Nucleated RBCs # /100WBC PT (12.1-14.9) SECO NDS INR (0.8-1.2) D-Dimer (0-0.59) ug/mIFE U Sodium (136-145) mmol/L Potassium (3.5-5.1) mmol/L Chloride (98-107) mmol/L Carbon Dioxide (22-29) mmol/L Anion Gap (5-19) BUN (8-23) mg/dL Creatinine (0.7-1.2) mg/dL GFR Calculation Glucose (65-115) mg/dL Calculated Osmolal ity (285-295) mOsm/k g Calcium (8.5-10.5) mg/dL Total Bilirubin (0.15-1.2) mg/dL AST (0-40) U/L ALT (0-41) U/L Alkaline Phosphata se (40-130) IU/L Troponin T Baselin e 20 H (0-15) ng/L Troponin T 120 Min [place] 19.57 H (0-15) ng/L Delta Troponin T -0.43 L (0-10) ABS# Total Protein (6.6-8.7) g/dL Albumin (3.5-5.2) g/dL Globulin (1.3-4.6) g/dL Urine Color Yellow (Yellow) Urine Appearance Clear (CLEAR) Urine pH 6.5 (5-7) Ur Specific Gravit y 1.010 (1.005-1.030) Urine Protein Neg (Negative) Urine Glucose (UA) Norm (Normal) Urine Ketones Negative (Negative) Urine Blood Neg (Negative) Urine Nitrate Negative (Negative) Urine Bilirubin Neg (Negative) Urine Urobilinogen Norm (Negative) mg/dL Ur Leukocyte Mary ase Negative (Negative) EKG Data^: EKG 1: Attestation: I personally reviewed and interpreted this EKG as follows: (1840, sinus bethany, rate of 53 bpm, no ST elevation, no ectopy) Discharge Plan Discharge Patient Disposition: Home Clinical Impression: Atypical chest pain, Right-sided sensory deficit present Condition: Stable Prescriptions: No Action escitalopram oxalate [Lexapro] 20 mg tablet 20 mg PO DAILY PRN (Reason: unknown) RF: 0 Discharge Orders: Discharge Order (Routine); Ordered 06/13/20 Ordered By: Rigoberto Ray Referrals: Markus Allen MD [Primary Care Provider] - Discharge Diet: Usual diet Discharge Activity: Increase activity as tolerated Activity Restrictions/Additional Instructions: Follow-up with Dr. Hudson's office first thing in the morning. He wants to see him tomorrow in the office. Return to the emergency department for any new concerns. Coding Level of Care Code ED Client Application Support Engineer for Chg Fwd Exam Comprehensive
[2020-06-13 15:06] LABS: INR 0.92 (0.8-1.2)
[2020-06-13 15:09] LABS: D Dimer 0.81 ug/mIFEU (0-0.59)
[2020-06-13 15:11] LABS: Alanine Aminotransferase 15 U/L (0-41); Albumin Level 3.9 g/dL (3.5-5.2); Alkaline Phosphatase 122 IU/L (40-130); Anion Gap 13.2 (5-19); Aspartate Amino Transferase 13 U/L (0-40); Blood Urea Nitrogen 20 mg/dL (8-23); Carbon Dioxide 24 mmol/L (22-29); Chloride 103 mmol/L (98-107); Globulin 3.4 g/dL (1.3-4.6); Glucose 115 mg/dL (65-115); Osmolality Calculated 286 mOsm/kg (285-295); Potassium 4.2 mmol/L (3.5-5.1); Sodium 136 mmol/L (136-145); Total Bilirubin 0.3 mg/dL (0.15-1.2); Total Protein 7.3 g/dL (6.6-8.7)
[2020-06-13 15:12] LABS: Troponin(5th) Baseline 20 ng/L (0-15)
[2020-06-13 16:01] LABS: Add Urine Microscopic? NO
--- NOTE | 2020-06-13 16:07 | CTR_ITS ---
PROCEDURE INFORMATION: Exam: CT Chest With Contrast Exam date and time: 06/13/2020 4:52 PM Age: 79 years old Clinical indication: Right-sided chest pain; Additional info: Cp, right side, creat clearence 40ml/min, history of chronic cryptococcal fungal infection. TECHNIQUE: Imaging protocol: Computed tomography of the chest with intravenous contrast. Radiation optimization: All CT scans at this facility use at least one of these dose optimization techniques: automated exposure control; mA and/or kV adjustment per patient size (includes targeted exams where dose is matched to clinical indication); or iterative reconstruction. Contrast material: VISI 320; Contrast volume: 95 ml; Contrast route: INTRAVENOUS (IV); COMPARISON: CT chest wo con [id number] 12/11/2019 8:31 AM RADIATION DOSE METRICS: Total DLP (mGy-cm): 812.67 FINDINGS: Lungs: Grossly stable lobular and nodular bilateral pulmonary opacities which have been fairly stable back to 2016 consistent with history of chronic cryptococcal infection. Pleural space: Resolution of small left pleural fluid collection. Heart: Mild calcified coronary artery disease. Aorta: Calcification of the abdominal aorta and/or iliac arteries consistent with atherosclerotic vessel disease. Great vessels off aortic arch: Calcification of the thoracic aorta and/or great vessels consistent with atherosclerotic vessel disease. Lymph nodes: Stable left calcified hilar nodes and/or mediastinal nodes and/or lung nodules consistent with old granulomatous disease. Spleen: Calcified splenic granulomas. Bones/joints: Unremarkable. No acute fracture. Soft tissues: Unremarkable. CT/CT chest w con* [id number] IMPRESSION: 1. Resolution of small left pleural fluid collection. 2. Grossly stable lobular and nodular bilateral pulmonary opacities which have been fairly stable back to 2016 consistent with history of chronic cryptococcal infection. 3. Mild calcified coronary artery disease. Radiation Dose CTDIVOL = (mGy): DLP = 812.67 (mGy-cm)
[2020-06-13 16:08] LABS: Bilirubin Urine Neg (Negative); Blood Urine Neg (Negative); Glucose Urine UA Norm (Normal); Ketones Urine Negative (Negative); Leukocyte Esterase Urine Negative (Negative); Nitrate Urine Negative (Negative); Protein Urine Neg (Negative); Urine Appearance Clear (CLEAR); Urine Color Yellow (Yellow); Urobilinogen Urine Norm (Negative); pH Urine 6.5 (5-7)
[2020-06-13] MEDS: iodixanol 320 mg/mL 100mL Btl IV (17:06)
[2020-06-13 17:30] LABS: Troponin 5 2HR 19.57 ng/L (0-15)
[2020-06-13 17:31] LABS: Troponin 5 2HR Delta -0.43 ABS# (0-10)
--- NOTE | 2020-06-13 17:49 | CTR_ITS ---
PROCEDURE INFORMATION: Exam: CT Head Without Contrast Exam date and time: 06/13/2020 6:18 PM Age: 79 years old Clinical indication: Pain; Numbness / parasthesia and visual disturbance; Right; Headache; Patient HX: PT had a previous scan today with contrast; Additional info: Numbness right arm TECHNIQUE: Imaging protocol: Computed tomography of the head without contrast. Radiation optimization: All CT scans at this facility use at least one of these dose optimization techniques: automated exposure control; mA and/or kV adjustment per patient size (includes targeted exams where dose is matched to clinical indication); or iterative reconstruction. COMPARISON: CT head wo con* [id number] 02/07/2020 8:34 PM RADIATION DOSE METRICS: Total DLP (mGy-cm): 906.05 FINDINGS: Brain: Moderate white matter disease and volume loss are identified. There is no acute infarct or edema. No hemorrhage. There is intravascular contrast. No areas of abnormal enhancement are identified. Ventricles: No ventriculomegaly. Bones/joints: Unremarkable. No acute fracture. Paranasal sinuses: Visualized sinuses are unremarkable. No fluid levels. Mastoid air cells: Visualized mastoid air cells are well aerated. 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 Soft tissues: Unremarkable. CT/CT head wo con* [id number] IMPRESSION: There are no acute concerning abnormalities. Radiation Dose CTDIVOL = (mGy): DLP = 906.05 (mGy-cm)
== END 2020-06-13 20:35 | disposition home or self-care (01) ==
PROVIDERS: Nurse Practitioner Family; Emergency Provider Nurse Practitioner Family; PCP Family Medicine
DX: R07.89 Other chest pain (principal); R29.818 Other symptoms and signs involving the nervous system
CPT/HCPCS: 12345; 36415; 70450; 71045; 71260; 80053; 81003; 84484; 85025; 85378; 85610; 93005; 99283; 99284; Q9967

== ENCOUNTER 2020-07-30 14:03 | Emergency (ER) | payer MEDICARE, OTHER, SELFPAY ==
[2020-07-30 14:07] VITALS: BP 174/94; PULSE 60; RESP 18; TEMP 36.9; O2SAT 99; BMI 26.6
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
--- NOTE | 2020-07-30 14:46 | XR_ITS ---
WS: [id number] Portable AP upright chest, 07/30/2020 Clinical Data: dyspnea/cough Comparison: Chest, 06/13/2020. Findings: There are chronic interstitial markings throughout the lungs. No nodules or masses are seen . The heart size is normal. The aortic arch is tortuous. The pulmonary vascularity is not remarkable. No acute pneumonia is seen. There is no pneumothorax. The aortic arch and descending aorta are tortu ous. XR/XR chest 1V portable [id number] Impression: 1. Chronic interstitial change of the lungs which remain same. 2. Atherosclerosis.
[2020-07-30 15:34] LABS: Basophils # 0.1 10^3/uL (0.0-0.1); Basophils % 0.8 %; Eosinophils # 0.2 10^3/uL (0.0-0.8); Eosinophils % 2.9 %; Hematocrit 41.1 % (42.0-52.0); Hemoglobin 13.4 g/dL (11.7-16.6); Lymphocytes # 1.4 10^3/uL (0.8-4.8); Lymphocytes % 22.4 %; Mean Corpuscular HGB Conc 32.6 g/dL (30.0-36.0); Mean Corpuscular Hemoglobin 28.3 pg (28.0-34.0); Mean Corpuscular Volume 86.9 fL (80-94); Mean Platelet Volume 10.1 fL (7.4-10.4); Monocytes # 0.6 10^3/uL (0.2-0.9); Monocytes % 9.2 %; Neutrophils # 4.07 10^3/uL (1.8-7.7); Neutrophils % 64.5 %; Nucleated Red Blood Cells % 0 %; Platelet Count 191 10^3/cmm (130-400); Red Blood Count 4.73 10^6/uL (4.1-5.3); Red Cell Distribution Width 12.4 % (12.1-15.1); White Blood Count 6.3 10^3/uL (4.0-10.0)
[2020-07-30 16:06] LABS: Alanine Aminotransferase 11 U/L (0-41); Alkaline Phosphatase 134 IU/L (40-130); Anion Gap 12.9 (5-19); Aspartate Amino Transferase 14 U/L (0-40); Blood Urea Nitrogen 22 mg/dL (8-23); Carbon Dioxide 27 mmol/L (22-29); Chloride 103 mmol/L (98-107); Glucose 86 mg/dL (65-115); Osmolality Calculated 291 mOsm/kg (285-295); Potassium 3.9 mmol/L (3.5-5.1); Sodium 139 mmol/L (136-145); Total Bilirubin 0.4 mg/dL (0.15-1.2)
[2020-07-30 16:56] VITALS: BP 168/90; PULSE 75; RESP 15; O2SAT 98
== END 2020-07-30 16:56 | disposition home or self-care (01) ==
PROVIDERS: Emergency Provider Family Medicine; PCP Family Medicine
DX: T59.811A Toxic effect of smoke, accidental (unintentional), initial encounter (principal)
CPT/HCPCS: 12345; 71045; 80053; 85025; 99282; 99283

== ENCOUNTER 2020-10-12 17:17 | Emergency (ER) | payer MEDICARE, OTHER, SELFPAY ==
[2020-10-12 17:30] VITALS: BP 170/80; PULSE 67; RESP 18; TEMP 36.4; O2SAT 96; BMI 25.8
--- NOTE | 2020-10-12 17:40 | W.ED.EYEPROB ---
HPI - Eye Problem General: Chief complaint: Eye Problems Stated complaint: pain in right eye Time Seen by Provider: 10/12/20 17:40 Source: patient Mode of arrival: ambulatory Limitations: no limitations History of Present Illness: HPI Narrative: 80-year-old male patient comes in today for concerns of increased drainage from the right eye. 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 Patient denies any other concerns. Patient appears well. Patient appears no acute distress. 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 Recurrent UTI Staghorn renal calculus Surgical History History of removal of eye Family History Mother , AT AGE 91 LYMPHOMA Cancer Father , AT AGE 72 STOMACH CANCER Cancer Social History Smoking and tobacco status: never smoked Alcohol intake: never Adopted: No Caregiver/support person: No Current occupational status: retired Physical Exam Const: COMMON NORMALS: no acute distress and patient oriented x3 GENERAL APPEARANCE: cooperative HENMT: COMMON NORMALS: normocephalic, TM's normal bilaterally and Normal external nose present HEAD & SCALP: normal to inspection and normocephalic NOSE: Normal external nose present TYMPANIC MEMBRANE: TM's normal bilaterally MOUTH: Normal oral and palatal mucosa present THROAT: posterior oropharynx normal Eye: OTHER: Left eye is normal. Right eye has some clear to yellow drainage from the socket, removal of the prosthesis notes the appearance of normal mucosal membrane. Some redness is noted to the lower eyelid. Neck/C-Spine: COMMON NORMALS: full ROM Lymph: LYMPHATIC: no lymphadenopathy noted Chest: COMMONS NORMALS: normal inspection of the chest Resp: COMMON NORMALS: normal respiratory effort EFFORT & INSPECTION: Yes able to speak in complete sentences Cardio: COMMON NORMALS: regular rate and regular rhythm RATE: regular rate RHYTHM: regular rhythm GI: COMMON NORMALS: non-tender Back/Pelvis: COMMON NORMALS: thoracic and lumbar spine normal to inspection Extremity: COMMON NORMALS: normal to inspection Neuro: COMMON NORMALS: patient oriented x3 and moves all extremities Psych: COMMON NORMALS: mental status grossly normal and cooperative Skin: COMMON NORMALS: no rashes or lesions noted GENERAL SKIN EXAM: no rashes or lesions noted Course Vital Signs: Vital signs: Vital Signs Temperature 97.6 F 10/12/20 17:30 Pulse Rate 67 10/12/20 17:30 Respiratory Rate 18 10/12/20 17:30 Blood Pressure 170/80 10/12/20 17:30 Pulse Oximetry 96 10/12/20 17:30 MDM - Eye Problem MDM Narrative: Medical decision making narrative: Patient presents with drainage from the right thigh. On exam patient has some erythema to the lower eyelid. 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 Tympanic membranes are normal. Bilateral nasal mucosa is normal. Respirations are even lungs are clear to auscultation. Vital signs are normal except for elevated blood pressure. Differential diagnosis includes conjunctivitis versus bacterial or irritant. Reviewed exam with patient and spouse recommendations for treatment and follow-up. Patient and spouse both report understanding and agreed to plan. Discharge Plan Discharge Patient Disposition: Home Clinical Impression: Bacterial conjunctivitis Condition: Stable Prescriptions: No Action escitalopram oxalate [Lexapro] 20 mg tablet 20 mg PO DAILY PRN (Reason: unknown) RF: 0 alprazolam 0.25 mg tablet 0.25 mg PO BID PRN (Reason: Anxiety) RF: 0 Discharge Orders: Discharge ED (Routine); Ordered 10/12/20 Ordered By: Rigoberto Ray Referrals: Markus Allen MD [Primary Care Provider] - Discharge Diet: Usual diet Discharge Activity: Increase activity as tolerated Patient Instructions: Conjunctivitis (ED) Activity Restrictions/Additional Instructions: Use antibiotic eyedrops 2 drops to the right eye 5 times a day while awake for the next 7 days. If no improvement is noted in the next 3 days follow-up with eye home health caregiver. If worsening symptoms or high fever develop return to the emergency department. Usual care of prosthetic eye as directed by specialist. Coding Level of Care Code ED Campaign Coordinator for Mynor Fwd Exam Comprehensive
[2020-10-12] MEDS: neomycin-poly-dex Op 5 mL Btl 2 DROP EYE-RIGHT (18:00)
== END 2020-10-12 18:02 | disposition home or self-care (01) ==
PROVIDERS: Emergency Provider Nurse Practitioner Family; PCP Family Medicine
DX: H10.89 Other conjunctivitis (principal); Z90.01 Acquired absence of eye
CPT/HCPCS: 12345; 99281; 99282

== ENCOUNTER 2021-04-27 20:55 | Emergency (ER) | payer MEDICARE, OTHER, SELFPAY ==
--- NOTE | 2021-04-27 03:22 | XRR_ITS ---
PROCEDURE INFORMATION: Exam: XR Chest Exam date and time: 04/27/2021 3:22 AM Age: 80 years old Clinical indication: Cough and shortness of breath; Patient HX: C/O cough and SOB TECHNIQUE: Imaging protocol: XR of the chest. Views: 1 view. COMPARISON: 1. CR XR chest 1V portable [id number] 2020-07-30 14:[address] chest w con* [id number] 2020-06-13 16:58 3. CR XR chest 1V portable [id number] 2020-06-13 14:32 4. CR XR chest 1V portable [id number] 2020-02-07 20:04 FINDINGS: Lungs: Diffuse nodular lung opacities similar to the prior study. Pleural spaces: Unremarkable. No pleural effusion. No pneumothorax. Heart/Mediastinum: Unremarkable. No cardiomegaly. Bones/joints: Unremarkable. XR/XR chest 1V portable [id number] IMPRESSION: Diffuse nodular lung opacities similar to the prior study.
[2021-04-27 21:23] VITALS: BP 167/83; PULSE 87; RESP 18; TEMP 36.6; O2SAT 94; BMI 26.6
[2021-04-27 23:00] VITALS: BP 216/95; PULSE 76; RESP 20; O2SAT 97
--- NOTE | 2021-04-27 23:49 | CTR_ITS ---
PROCEDURE INFORMATION: Exam: CT Abdomen And Pelvis With Contrast Exam date and time: 04/27/2021 11:49 PM Age: 80 years old Clinical indication: Bloating; Patient HX: C/O abd distention and diarrhea; Additional info: Abd distension, diarrhea TECHNIQUE: Imaging protocol: Computed tomography of the abdomen and pelvis with contrast. Radiation optimization: All CT scans at this facility use at least one of these dose optimization techniques: automated exposure control; mA and/or kV adjustment per patient size (includes targeted exams where dose is matched to clinical indication); or iterative reconstruction. Contrast material: VISI 320; Contrast volume: 95 ml; Contrast route: INTRAVENOUS (IV); COMPARISON: 1. CT kidney stone [id number] 2020-02-07 19:[address] Chest/Abdomen/Pelvis wo IV 2019-09-20 14:22 RADIATION DOSE METRICS: Total DLP (mGy-cm): 1473.28 FINDINGS: Lungs: There is a pulmonary parenchymal calcification consistent with remote granulomatous organism exposure. Mediastinal space: Small gastroesophageal sliding type hiatal hernia. Liver: Normal. No mass. Gallbladder and bile ducts: Normal. No calcified stones. No ductal dilation. Pancreas: Normal. No ductal dilation. Spleen: Splenomegaly. Adrenal glands: Normal. No mass. Kidneys and ureters: Renal atrophy. Numerous tiny renal hypodense lesions. Small, less than 5 mm, renal hypodensity. Highly likely to be benign and does not require follow-up imaging or biopsy per ACR. Small renal calcifications. Stomach and bowel: Extensive colonic diverticulosis without acute inflammatory changes. Bilateral inguinal hernias, the right contains nonobstructed small bowel loops. Question minimal colitis, there appears to be some mild mucosal enhancement in the right hemicolon. Multiple diverticula with some questionable minimal inflammatory changes around the sigmoid colonic diverticula. Appendix: Normal appendix. Intraperitoneal space: Unremarkable. No free air. No significant fluid collection. Vasculature: Mild moderate aortic and iliac stenosis. Lymph nodes: Unremarkable. No enlarged lymph nodes. Urinary bladder: 1 cm ventral bladder diverticulum. Small right posterolateral 8 mm bladder diverticulum. Reproductive: Mild prostate gland enlargement. Bones/joints: Mild lumbar spondylosis. Soft tissues: Unremarkable. CT/CT abdomen pelvis w con* [id number] IMPRESSION: 1. Small gastroesophageal sliding type hiatal hernia. 2. 1 cm ventral bladder diverticulum. Small right posterolateral 8 mm bladder diverticulum. 3. Bilateral inguinal hernias, the right contains nonobstructed small bowel loops. 4. Splenomegaly. 5. Question minimal colitis, there appears to be some mild mucosal enhancement in the right hemicolon. Multiple diverticula with some questionable minimal inflammatory changes around the sigmoid colonic diverticula. COMMENTS: Consistent with the [employer]'s Incidental Findings Committee white paper (J Am Alysha Radiol 2018): Any incidental renal lesion less than 1 cm or classified as too small to characterize, or any incidental cystic renal lesion characterized as simple-appearing, is likely benign. No follow-up imaging is recommended for these lesions per consensus recommendations based on imaging criteria. Radiation Dose CTDIVOL = (mGy): DLP = 1473.28 (mGy-cm)
[2021-04-27 23:56] LABS: Basophils % 0.3 %; Hematocrit 43.3 % (42.0-52.0); Hemoglobin 13.7 g/dL (11.7-16.6); Lymphocytes # 0.9 10^3/uL (0.8-4.8); Lymphocytes % 30.9 %; Mean Corpuscular HGB Conc 31.6 g/dL (30.0-36.0); Mean Corpuscular Hemoglobin 27.6 pg (28.0-34.0); Mean Corpuscular Volume 87.3 fL (80-94); Mean Platelet Volume 9.8 fL (7.4-10.4); Monocytes # 0.4 10^3/uL (0.2-0.9); Neutrophils # 1.68 10^3/uL (1.8-7.7); Neutrophils % 55.8 %; Nucleated Red Blood Cells % 0 %; Platelet Count 125 10^3/cmm (130-400); Red Blood Count 4.96 10^6/uL (4.1-5.3); Red Cell Distribution Width 13.2 % (12.1-15.1)
[2021-04-28] VITALS: BP 203/81; PULSE 81; RESP 18; O2SAT 95
[2021-04-28] MEDS: sodium chloride 0.9% 500 ML 999 ML IV (00:12)
[2021-04-28 00:16] LABS: Alanine Aminotransferase 24 U/L (0-41); Albumin Level 3.8 g/dL (3.5-5.2); Alkaline Phosphatase 115 IU/L (40-130); Anion Gap 14.4 (5-19); Aspartate Amino Transferase 25 U/L (0-40); Blood Urea Nitrogen 22 mg/dL (8-23); Calcium 8.5 mg/dL (8.5-10.5); Carbon Dioxide 24 mmol/L (22-29); Chloride 102 mmol/L (98-107); Globulin 3.4 g/dL (1.3-4.6); Glucose 88 mg/dL (65-115); Lipase 38 U/L (13-60); Osmolality Calculated 285 mOsm/kg (285-295); Potassium 4.4 mmol/L (3.5-5.1); Sodium 136 mmol/L (136-145); Total Bilirubin 0.5 mg/dL (0.15-1.2); Total Protein 7.2 g/dL (6.6-8.7)
[2021-04-28 00:27] LABS: Procalcitonin 0.17 ng/mL (0-0.5)
[2021-04-28 00:40] LABS: C Reactive Protein 26.3 mg/L (0.0-4.9)
--- NOTE | 2021-04-28 00:51 | W.ED.NAVMDI ---
HPI - Nausea/Vomiting/Diarrhea General: Chief complaint: Nausea/Vomiting/Diarrhea Stated complaint: right arm hurts body aches diarrhea Time Seen by Provider: 04/27/21 23:09 History of Present Illness: HPI Narrative: 80-year-old gentleman. He has had pneumonia in the past, with a history evidently of a fungal pneumonia. He presents with a cough, diarrhea, no vomiting. He is short of breath as well. No known exposure to COVID-19. He is unvaccinated. MD elicited complaint: nausea and diarrhea Pertinent past history: other Onset (ago): day(s) Description of vomiting: watery Associated nausea: Yes Associated abdominal pain: No Location of pain: None Quality: cramping Exacerbating factors: none Relieving factors: none Associated symtoms: Reports bloating, cough, decreased urine output, dizziness, fatigue, anorexia, nausea and short of breath; Denies chest pain, diaphoresis, dysuria, fevers/chills or headache(s) Review of Systems Const: Reports: fatigue; Denies: diaphoresis Card: Denies: chest pain GI: Reports: nausea and bloating : Denies: dysuria Neuro: Reports: dizziness; Denies: headache(s) PFS ED PFSH: Medical History (Updated 04/28/21 @ 05:54 by Jan Cote DO) Bladder 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 Recurrent UTI Staghorn renal calculus Surgical History History of removal of eye Family History Mother , AT AGE 91 LYMPHOMA Cancer Father , AT AGE 72 STOMACH CANCER Cancer Social History Smoking and tobacco status: never smoked Alcohol intake: never Adopted: No Caregiver/support person: No Current occupational status: retired Physical Exam Const: COMMON NORMALS: no acute distress GENERAL APPEARANCE: cooperative and ill appearing (Mild) Chest: COMMONS NORMALS: normal inspection of the chest Resp: COMMON NORMALS: normal respiratory effort, No use of accessory muscles and clear to auscultation bilaterally AUSCULTATION: clear to auscultation bilaterally Cardio: COMMON NORMALS: regular rate and regular rhythm RATE: regular rate RHYTHM: regular rhythm GI: COMMON NORMALS: Soft to palpation INSPECTION: Yes abdominal distension AUSCULTATION: Yes normoactive bowel sounds PALPATION: Yes Soft to palpation, No Tenderness to palpation present (GI) and No Guarding due to palpation present (GI) PERCUSSION: normal to percussion Extremity: COMMON NORMALS: normal to inspection Neuro: BENJAMIN COMA SCALE: document GCS findings [place] coma scale eye opening: Spontaneous Benjamin coma scale verbal response: Orientated [place] coma scale motor response: Obey commands Benjamin coma scale total score: 15 Course Vital Signs: Vital signs: Vital Signs Temperature 97.8 F 04/27/21 21:23 Pulse Rate 75 04/28/21 06:11 Respiratory Rate 19 H 04/28/21 06:11 Blood Pressure 152/76 04/28/21 06:11 Pulse Oximetry 94 04/28/21 06:11 MDM - Nausea/Vomiting/Diarrhea MDM Narrative: Medical decision making narrative: 80-year-old male patient presenting with diarrhea, generalized weakness. He has mild shortness of breath. Is not requiring oxygen. His white blood cell count is 3.0. Platelet count is 125. Creatinine is 1.7. His D-dimer is slightly elevated. His COVID-19 antigen test is positive. X-ray of the chest is stable from prior. CT of the belly shows a minimal colitis. Patient will be placed on Flagyl for the colitis. He is given monoclonal antibody infusion here in the ER for COVID-19. He is not requiring oxygen. Lab Data: Labs: Lab Results 04/27/21 04/27/21 04/27/21 Range/Units 23:46 23:46 23:46 WBC 3.0 L (4.0-10.0) 10^3/ uL RBC 4.96 (4.1-5.3) 10^6/u L Hgb 13.7 (11.7-16.6) g/dL Hct 43.3 (42.0-52.0) % MCV 87.3 (80-94) fL MCH 27.6 L (28.0-34.0) pg MCHC 31.6 (30.0-36.0) g/dL RDW 13.2 (12.1-15.1) % Plt Count 125 L (130-400) 10^3/c mm MPV 9.8 (7.4-10.4) fL Neut % (Auto) 55.8 % Lymph % (Auto) 30.9 % [place] % (Auto) 12.0 % Eos % (Auto) 1.0 % Baso % (Auto) 0.3 % Neut # (Auto) 1.68 L (1.8-7.7) 10^3/u L Lymph # (Auto) 0.9 (0.8-4.8) 10^3/u L [place] # (Auto) 0.4 (0.2-0.9) 10^3/u L Eos # (Auto) 0.0 (0.0-0.8) 10^3/u L Baso # (Auto) 0.0 (0.0-0.1) 10^3/u L Nucleated RBC % (a uto) 0 % Nucleated RBCs # 0.0 /100WBC D-Dimer 1.10 H (0-0.59) ug/mIFE U Sodium 136 (136-145) mmol/L Potassium 4.4 (3.5-5.1) mmol/L Chloride 102 (98-107) mmol/L Carbon Dioxide 24 (22-29) mmol/L Anion Gap 14.4 (5-19) BUN 22 (8-23) mg/dL Creatinine 1.7 H (0.7-1.2) mg/dL GFR Calculation Not Reportable Glucose 88 (65-115) mg/dL Calculated Osmolal ity 285 (285-295) mOsm/k g Lactate (0.5-2.2) mmol/L Calcium 8.5 (8.5-10.5) mg/dL Total Bilirubin 0.5 (0.15-1.2) mg/dL AST 25 (0-40) U/L ALT 24 (0-41) U/L Alkaline Phosphata se 115 (40-130) IU/L C-Reactive Protein (0.0-4.9) mg/L Total Protein 7.2 (6.6-8.7) g/dL Albumin 3.8 (3.5-5.2) g/dL Globulin 3.4 (1.3-4.6) g/dL Lipase 38 (13-60) U/L Procalcitonin (0-0.5) ng/mL Urine Color (Yellow) Urine Appearance (CLEAR) Urine pH (5-7) Ur Specific Gravit y (1.005-1.030) Urine Protein (Negative) Urine Glucose (UA) (Normal) Urine Ketones (Negative) Urine Blood (Negative) Urine Nitrate (Negative) Urine Bilirubin (Negative) Urine Urobilinogen (Negative) mg/dL Ur Leukocyte Mary ase (Negative) Urine RBC (0-2) /hpf Urine WBC (0-5) /hpf Ur Squamous Epith Cells (0-5) /hpf Amorphous Sediment Urine Bacteria (NONE) /hpf SARS-CoV-2 Ag (Rap id) 04/27/21 04/27/21 04/28/21 Range/Units 23:46 23:46 00:15 WBC (4.0-10.0) 10^3/ uL RBC (4.1-5.3) 10^6/u L Hgb (11.7-16.6) g/dL Hct (42.0-52.0) % MCV (80-94) fL MCH (28.0-34.0) pg MCHC (30.0-36.0) g/dL RDW (12.1-15.1) % Plt Count (130-400) 10^3/c mm MPV (7.4-10.4) fL Neut % (Auto) % Lymph % (Auto) % [place] % (Auto) % Eos % (Auto) % Baso % (Auto) % Neut # (Auto) (1.8-7.7) 10^3/u L Lymph # (Auto) (0.8-4.8) 10^3/u L [place] # (Auto) (0.2-0.9) 10^3/u L Eos # (Auto) (0.0-0.8) 10^3/u L Baso # (Auto) (0.0-0.1) 10^3/u L Nucleated RBC % (a uto) % Nucleated RBCs # /100WBC D-Dimer (0-0.59) ug/mIFE U Sodium (136-145) mmol/L Potassium (3.5-5.1) mmol/L Chloride (98-107) mmol/L Carbon Dioxide (22-29) mmol/L Anion Gap (5-19) BUN (8-23) mg/dL Creatinine (0.7-1.2) mg/dL GFR Calculation Glucose (65-115) mg/dL Calculated Osmolal ity (285-295) mOsm/k g Lactate 1.0 (0.5-2.2) mmol/L Calcium (8.5-10.5) mg/dL Total Bilirubin (0.15-1.2) mg/dL AST (0-40) U/L ALT (0-41) U/L Alkaline Phosphata se (40-130) IU/L C-Reactive Protein 26.3 H (0.0-4.9) mg/L Total Protein (6.6-8.7) g/dL Albumin (3.5-5.2) g/dL Globulin (1.3-4.6) g/dL Lipase (13-60) U/L Procalcitonin 0.17 (0-0.5) ng/mL Urine Color (Yellow) Urine Appearance (CLEAR) Urine pH (5-7) Ur Specific Gravit y (1.005-1.030) Urine Protein (Negative) Urine Glucose (UA) (Normal) Urine Ketones (Negative) Urine Blood (Negative) Urine Nitrate (Negative) Urine Bilirubin (Negative) Urine Urobilinogen (Negative) mg/dL Ur Leukocyte Mary ase (Negative) Urine RBC (0-2) /hpf Urine WBC (0-5) /hpf Ur Squamous Epith Cells (0-5) /hpf Amorphous Sediment Urine Bacteria (NONE) /hpf SARS-CoV-2 Ag (Rap id) Cancelled 04/28/21 04/28/21 Range/Units 02:35 02:35 WBC (4.0-10.0) 10^3/ uL RBC (4.1-5.3) 10^6/u L Hgb (11.7-16.6) g/dL Hct (42.0-52.0) % MCV (80-94) fL MCH (28.0-34.0) pg MCHC (30.0-36.0) g/dL RDW (12.1-15.1) % Plt Count (130-400) 10^3/c mm MPV (7.4-10.4) fL Neut % (Auto) % Lymph % (Auto) % [place] % (Auto) % Eos % (Auto) % Baso % (Auto) % Neut # (Auto) (1.8-7.7) 10^3/u L Lymph # (Auto) (0.8-4.8) 10^3/u L [place] # (Auto) (0.2-0.9) 10^3/u L Eos # (Auto) (0.0-0.8) 10^3/u L Baso # (Auto) (0.0-0.1) 10^3/u L Nucleated RBC % (a uto) % Nucleated RBCs # /100WBC D-Dimer (0-0.59) ug/mIFE U Sodium (136-145) mmol/L Potassium (3.5-5.1) mmol/L Chloride (98-107) mmol/L Carbon Dioxide (22-29) mmol/L Anion Gap (5-19) BUN (8-23) mg/dL Creatinine (0.7-1.2) mg/dL GFR Calculation Glucose (65-115) mg/dL Calculated Osmolal ity (285-295) mOsm/k g Lactate (0.5-2.2) mmol/L Calcium (8.5-10.5) mg/dL Total Bilirubin (0.15-1.2) mg/dL AST (0-40) U/L ALT (0-41) U/L Alkaline Phosphata se (40-130) IU/L C-Reactive Protein (0.0-4.9) mg/L Total Protein (6.6-8.7) g/dL Albumin (3.5-5.2) g/dL Globulin (1.3-4.6) g/dL Lipase (13-60) U/L Procalcitonin (0-0.5) ng/mL Urine Color Yellow (Yellow) Urine Appearance Clear (CLEAR) Urine pH 5 (5-7) Ur Specific Gravit y 1.010 (1.005-1.030) Urine Protein 1+ H (Negative) Urine Glucose (UA) Norm (Normal) Urine Ketones 1+ H (Negative) Urine Blood 2+ H (Negative) Urine Nitrate Negative (Negative) Urine Bilirubin Neg (Negative) Urine Urobilinogen 1 H (Negative) mg/dL Ur Leukocyte Mary ase Negative (Negative) Urine RBC 5-10 H (0-2) /hpf Urine WBC 0-4 H (0-5) /hpf Ur Squamous Epith Cells 0-4 H (0-5) /hpf Amorphous Sediment Not Reportable Urine Bacteria Trace (NONE) /hpf SARS-CoV-2 Ag (Rap id) Positive H Discharge Plan Discharge Patient Disposition: Home Clinical Impression: Colitis, COVID-19 Hypertension Qualifiers: Hypertension type: unspecified Qualified Code(s): I10 - Essential (primary) hypertension Condition: Stable Prescriptions: New amlodipine 10 mg tablet 10 mg PO DAILY Qty: 30 RF: 0 Flagyl 500 mg tablet 500 mg PO TID Qty: 21 RF: 0 No Action escitalopram oxalate [Lexapro] 20 mg tablet 20 mg PO DAILY PRN (Reason: unknown) RF: 0 alprazolam 0.25 mg tablet 0.25 mg PO BID PRN (Reason: Anxiety) RF: 0 Discharge Orders: Discharge ED (Routine); Ordered 04/28/21 Ordered By: Jan Cote Referrals: Markus Allen MD [Primary Care Provider] - 1-3 days Discharge Diet: Advance as tolerated Discharge Activity: Limit activity as instructed Patient Instructions: Viral Syndrome (ED), Infectious Colitis (ED) Activity Restrictions/Additional Instructions: Antibiotics as directed. Check your blood pressure twice daily. If systolic or top number is staying above 150 take the medication you were prescribed if it does not, do not take it. Return to the emergency room for worsening symptoms despite treatment such as worsening shortness of breath, worsening diarrhea, worsening generalized weakness, lethargy, mental status changes, other concerning symptoms. Coding Level of Care Code ED Information Systems Architect for Myn[place] Fwd Exam Detailed
[2021-04-28] MEDS: iodixanol 320 mg/mL 100mL Btl IV (01:30)
[2021-04-28 02:39] VITALS: BP 183/87; PULSE 89; RESP 18; O2SAT 95
[2021-04-28 03:12] LABS: SARS Covid-2 Antigen Positive (Negative)
[2021-04-28 03:18] LABS: Protein Urine 1+ (Negative); Urine Appearance Clear (CLEAR); Urine Color Yellow (Yellow); pH Urine 5 (5-7)
[2021-04-28 03:19] LABS: Add Urine Microscopic? YES; Bilirubin Urine Neg (Negative); Blood Urine 2+ (Negative); Glucose Urine UA Norm (Normal); Ketones Urine 1+ (Negative); Leukocyte Esterase Urine Negative (Negative); Nitrate Urine Negative (Negative); Urobilinogen Urine 1 mg/dL (Negative)
[2021-04-28 03:24] LABS: Add Urine Culture? No; Bacteria Urine TRACE /hpf; Squamous Epithelial Cell Urine 0-4 /hpf (0-5); WBC Urine 0-4 /hpf (0-5)
[2021-04-28 03:32] VITALS: BP 189/96; PULSE 88; RESP 17; O2SAT 94
[2021-04-28 04:00] VITALS: BP 182/76; PULSE 82; RESP 22; O2SAT 93
[2021-04-28] MEDS: metoprolol tartrate 1 mg/1 mL SDV 5 mL 5 MG IV (04:07)
[2021-04-28] MEDS: enalaprilat 1.25 mg/mL Inj IVP (04:50)
[2021-04-28 05:27] VITALS: BP 165/68; PULSE 77; RESP 22; O2SAT 94
[2021-04-28 06:11] VITALS: BP 152/76; PULSE 75; RESP 19; O2SAT 94
[2021-04-28 15:25] LABS: Coronavirus Test Green County Detected
== END 2021-04-28 07:17 | disposition home or self-care (01) ==
PROVIDERS: Nurse Practitioner Family; Emergency Provider Emergency Medicine; PCP Family Medicine
DX: U07.1 COVID-19 (principal); K52.9 Noninfective gastroenteritis and colitis, unspecified; I10 Essential (primary) hypertension
CPT/HCPCS: 36415; 71045; 74177; 80053; 81001; 83605; 83690; 84145; 85025; 85378; 86140; 87426; 87635; 96365; 96375; 99284; J3490; J7040; Q9967

== ENCOUNTER 2021-12-06 18:36 | Inpatient (IN) | payer MEDICARE, OTHER, SELFPAY ==
[2021-12-06] VITALS (8 sets, daily range): BP systolic 115–187; BP diastolic 68–91; PULSE 105–131; RESP 16–20; TEMP 36.1–38.4; O2SAT 90–96; BMI 27.3; BMI 27.4
--- NOTE | 2021-12-06 18:49 | W.ED.MALEGU ---
HPI - Male Genitourinary General: Chief complaint: Urogenital-Male Stated complaint: sob,lethargib Time Seen by Provider: 12/06/21 18:45 Source: patient and family History of Present Illness: 81-year-old male with a history of chronic lung disease, hypertension, kidney stones, lower urinary tract obstruction, presents with acute mental status change at home. notes that she found him naked in the living room soaked in urine. He has some incontinence on and off, but notes that he is acting more strange. He complains of left-sided flank and abdominal pain. No vomiting or diarrhea. His belly is tender and hard. states he has had some fecal incontinence as well. He presents tachycardic and hypoxic, neither of which is normal for him. MD Complaint: other Onset (ago): hour(s) Duration: constant Location: left flank and abdomen Severity: severe Quality: aching, sharp and stabbing Relieving factors: none Exacerbating factors: none Associated symptoms: Reports swelling, urinary incontinence and urinary retention; Deny discharge, fevers/chills, hematuria, nausea, rash or vomiting Review of Systems Const: Denies: fever(s), chills or body aches Eyes: Denies: change in vision ENMT: Denies: throat pain Card: Reports: edema and swelling of feet/ankles; Denies: chest pain Resp: Reports: dyspnea, non-productive cough and wheezing GI: Denies: nausea or vomiting : Reports: urinary incontinence; Denies: hematuria Neuro: Reports: confusion and behavioral changes [facility] ED PFSH: Medical History (Updated 12/06/21 @ 21:47 by Jan Cote DO) Bladder 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 Recurrent UTI Staghorn renal calculus Surgical History History of removal of eye Family History Mother , AT AGE 91 LYMPHOMA Cancer Father , AT AGE 72 STOMACH CANCER Cancer Social History Smoking and tobacco status: never smoked Alcohol intake: never Adopted: No Caregiver/support person: No Current occupational status: retired Physical Exam Const: COMMON NORMALS: alert GENERAL APPEARANCE: cooperative, in distress, ill appearing and frail appearing ORIENTATION/CONSCIOUSNESS: Yes awake, Yes oriented to person, Yes oriented to place and Yes confused HENMT: COMMON NORMALS: normocephalic, atraumatic and Normal external nose present HEAD & SCALP: normocephalic and atraumatic FACE & SINUS: normal facial exam and face symmetric NOSE: Normal external nose present THROAT: posterior oropharynx normal Eye: COMMON NORMALS: Equal, round and reactive pupils present and EOMs intact bilaterally PUPIL: Yes Equal, round and reactive pupils present Chest: COMMONS NORMALS: normal inspection of the chest Resp: EFFORT & INSPECTION: Yes tachypneic and No stridor AUSCULTATION: rales, wheezes and diminished lung sounds Cardio: COMMON NORMALS: regular rhythm and Peripheral pulses 2+ throughout RATE: tachycardic RHYTHM: regular rhythm PERIPHERAL PULSES: Peripheral pulses 2+ throughout GI: INSPECTION: Yes abdominal distension AUSCULTATION: Yes normoactive bowel sounds PALPATION: Yes Firmness to palpation present (GI) and Yes Tenderness to palpation present (GI) Details: LLQ and LUQ : BLADDER/KIDNEY EXAM: Yes CVA tenderness PENIS: normal penis Back/Pelvis: GENERAL BACK: Yes CVA tenderness CVA tenderness: left Extremity: GENERAL: Yes edema (2+ bilateral) Neuro: BENJAMIN COMA SCALE: document GCS findings [place] coma scale eye opening: Spontaneous [place] coma scale verbal response: Confused Benjamin coma scale motor response: Obey commands Benjamin coma scale total score: 14 SENSORIUM/ORIENTATION: Yes alert, Yes oriented to person and Yes oriented to place Course Consultations: Consultation #1: alla Time: 21:39 Vital Signs: Vital signs: Vital Signs Temperature 97.0 F L 12/06/21 18:38 Pulse Rate 113 H 12/06/21 19:36 Respiratory Rate 16 12/06/21 19:47 Blood Pressure 187/91 12/06/21 19:36 Pulse Oximetry 90 12/06/21 19:36 MDM - Male Medical Decision Making Chest x-ray is not significantly changed. White blood cell count is 21.2. BUN is 38 creatinine is 1.9. His BNP is up as well. Bicarbonate level is 20. Lactic acid is 2.7. He is not given a fluid bolus, as he is actually hypertensive, and already hypoxic. He will be given maintenance fluid for the [place] CT of the head is negative for acute change. CT of the chest shows a lingular pneumonia. CT of the belly is negative for acute change. Lab Data : 12/06/21 19:00 12/06/21 19:00 Radiology Impressions Chest X-Ray 12/06/21: IMPRESSION: Patchy bilateral suspected underlying nodular densities, similar to prior exam, a chest CT could further evaluate these as clinically indicated, previous chest CT from 06/13/2020 did demonstrate diffuse nodular densities as well, somewhat similar to this exam. Chest/Abdomen/Pelvis CT 12/06/21: IMPRESSION: 1. Slight interval progression of multiple nodular opacities bilaterally 1 of which is cavitary in the posterior segment right upper lobe consistent with history of chronic cryptococcal fungal infection. 2. Interval appearance of moderate inferior segment lingular pneumonia. 3. No pulmonary embolus or aortic dissection. IMPRESSION: 1. Slight interval increased size of adrenal glands bilaterally, left greater than right, most consistent with adrenal hyperplasia. 2. [place] balloon catheter in the urinary bladder. 3. Large 10.1 x 6.3 x 5.0 cm right inguinal hernia containing prominent loop of small bowel without obvious ischemia or obstruction. Head CT 12/06/21: IMPRESSION: No acute intracranial abnormality. Laboratory Results WBC 21.2 10^3/uL (4.0-10.0) H 12/06/21 19:00 RBC 5.20 10^6/uL (4.1-5.3) 12/06/21 19:00 Hgb 14.9 g/dL (11.7-16.6) 12/06/21 19: Hct 44.5 % (42.0-52.0) 12/06/21 19:00 MCV 85.6 fl (80-94) 12/06/21 19: MCH 28.7 pg (28.0-34.0) 12/06/21 19: MCHC 33.5 g/dL (30.0-36.0) 12/06/21 19: RDW 13.4 % (12.1-15.1) 12/06/21 19: Plt Count 182 10^3/cmm (130-400) 12/06/21 19:00 MPV 10.2 fL (7.4-10.4) 12/06/21 19:00 Neut % (Auto) 87.6 % 12/06/21 19:00 Lymph % (Auto) 4.5 % 12/06/21 19:00 Bertie % (Auto) 6.8 % 12/06/21 19:00 Eos % (Auto) 0.0 % 12/06/21 19:00 Baso % (Auto) 0.2 % 12/06/21 19:00 Neut # (Auto) 18.51 10^3/uL (1.8-7.7) H 12/06/21 19:00 Lymph # (Auto) 1.0 10^3/uL (0.8-4.8) 12/06/21 19:00 Bert[place] # (Auto) 1.4 10^3/uL (0.2-0.9) H 12/06/21 19:00 Eos # (Auto) 0.0 10^3/uL (0.0-0.8) 12/06/21 19:00 Baso # (Auto) 0.1 10^3/uL (0.0-0.1) 12/06/21 19:00 Nucleated RBC % (auto) 0 % 12/06/21 19: Nucleated RBCs # 0.0 /100WBC 12/06/21 19:00 PT 14.40 SECONDS (12.1-14.9) 12/06/21 19:00 INR 1.09 (0.8-1.2) 12/06/21 19:00 D-Dimer 2.87 ug/mIFEU (0-0.59) H 12/06/21 19:00 Specimen Type Arterial 12/06/21 19:33 Sample Site Radial, left 12/06/21 19:33 ABG pH 7.45 (7.35-7.45) 12/06/21 19: ABG pCO2 28.4 mmHg (35-45) L 12/06/21 19: ABG pO2 63.2 mmHg (80.0-100.0) L 12/06/21 19: ABG HCO3 19.9 mmol/L (22-26) L 12/06/21 19: ABG Base Excess -2.8 mmol/L (-2.0-2.0) L 12/06/21 19:33 Jhonny Test Pos 12/06/21 19:33 Hematocrit 43.3 % (42-52) 12/06/21 19:33 Hgb O2 Saturation 93.1 % (95-100) L 12/06/21 19: Carboxyhemoglobin 1.2 %THgb (0.4-20.1) 12/06/21: Methemoglobin 0.7 % (0.4-1.5) 12/06/21 19: Total Hemoglobin 14.1 g/dL (14-18) 12/06/21 19:33 O2 Delivery Device Nc 12/06/21 19:33 O2 Liters/Min 2.0 % 12/06/21: Business Systems Manager ID Buttr 12/06/21 19:33 Sodium 138 mmol/L (136-145) 12/06/21 19:00 Potassium 4.5 mmol/L (3.5-5.1) 12/06/21 19:00 Chloride 102 mmol/L (98-107) 12/06/21 19:00 Carbon Dioxide 20 mmol/L (22-29) L 12/06/21 19:00 Anion Gap 20.5 (5-19) H 12/06/21 19:00 BUN 38 mg/dL (8-23) H 12/06/21 19:00 Creatinine 1.9 mg/dL (0.7-1.2) H 12/06/21 19:00 GFR Calculation Not Reportable 12/06/21 19: Glucose 168 mg/dL (65-115) H 12/06/21 19:00 Calculated Osmolality 299 mOsm/kg (285-295) H 12/06/21 19:00 Lactic Acid 2.7 mmol/L (0.5-2.2) H 12/06/21 19:00 Calcium 9.5 mg/dL (8.5-10.5) 12/06/21 19:00 Magnesium 1.5 mg/dL (1.7-2.3) L 12/06/21 19:00 Total Bilirubin 0.9 mg/dL (0.15-1.2) 12/06/21 19:00 AST 34 U/L (0-40) 12/06/21 19:00 ALT 38 U/L (0-41) 12/06/21 19:00 Alkaline Phosphatase 140 IU/L (40-130) H 12/06/21 19:00 Troponin T Baseline 40 ng/L (0-15) H 12/06/21 19:00 Troponin T 120 Minute 43.82 ng/L (0-15) H 12/06/21 21:04 Delta Troponin T 3.82 ABS# (0-10) 12/06/21 21:04 NT-Pro-B Natriuret Pep 5175 pg/mL (0-450) H 12/06/21 19:00 Total Protein 8.3 g/dL (6.6-8.7) 12/06/21 19:00 Albumin 4.1 g/dL (3.5-5.2) 12/06/21 19:00 Globulin 4.2 g/dL (1.3-4.6) 12/06/21 19:00 Urine Color Yellow (Yellow) 12/06/21 19:24 Urine Appearance Clear (CLEAR) 12/06/21 19:24 Urine pH 5 (5-7) 12/06/21 19:24 Ur Specific [place] 1.020 (1.005-1.030) 12/06/21 19:24 Urine Protein 1+ (Negative) H 12/06/21 19:24 Urine Glucose (UA) Trace (Normal) H 12/06/21 19:24 Urine Ketones Negative (Negative) 12/06/21 19:24 Urine Blood 2+ (Negative) H 12/06/21 19:24 Urine Nitrate Negative (Negative) 12/06/21 19:24 Urine Bilirubin Neg (Negative) 12/06/21 19:24 Urine Urobilinogen Norm mg/dL (Negative) 12/06/21 19:24 Ur Leukocyte Esterase Negative (Negative) 12/06/21 19:24 Urine RBC 0-4 /hpf (0-2) H 12/06/21 19:24 Urine WBC 0-4 /hpf (0-5) H 12/06/21 19:24 Ur Squamous Epith Cells 0-4 /hpf (0-5) H 12/06/21 19:24 Ur Transition Epith Cell 5-10 /hpf 12/06/21 19:24 Amorphous Sediment 1+ /hpf 12/06/21 19:24 Urine Bacteria Trace /hpf (NONE) 12/06/21 19:24 Hyaline Casts 0-4 /lpf H 12/06/21 19:24 Discharge Plan Discharge Patient Disposition: Admitted As Inpatient Admit Provider: Mee Tao Clinical Impression: Pneumonia, Acute alteration in mental status Respiratory failure Qualifiers: Chronicity: acute Respiratory failure complication: hypoxia Qualified Code(s): J96.01 - Acute respiratory failure with hypoxia Condition: Fair Coding Level of Care Code ED Loan Servicing Representative for Chg Fwd Exam Comprehensive
--- NOTE | 2021-12-06 19:02 | XRR_ITS ---
PROCEDURE INFORMATION: Exam: XR Chest Exam date and time: 12/06/2021 7:02 PM Age: 81 years old Clinical indication: Shortness of breath; Additional info: SOB TECHNIQUE: Imaging protocol: XR of the chest. Views: 1 view. COMPARISON: CR (CHEST, ) 04/27/2021 11:50 PM FINDINGS: Lungs: Unremarkable. No consolidation. Pleural spaces: Unremarkable. No pleural effusion. No pneumothorax. Heart/Mediastinum: Unremarkable. No cardiomegaly. Bones/joints: Unremarkable. Other findings: Patchy bilateral suspected underlying nodular densities, similar to prior exam, a chest CT could further evaluate these as clinically indicated, previous chest CT from 06/13/2020 did demonstrate diffuse nodular densities as well, somewhat similar to this exam. XR/XR chest 1V portable [id number] IMPRESSION: Patchy bilateral suspected underlying nodular densities, similar to prior exam, a chest CT could further evaluate these as clinically indicated, previous chest CT from 06/13/2020 did demonstrate diffuse nodular densities as well, somewhat similar to this exam.
--- NOTE | 2021-12-06 19:02 | CTR_ITS ---
PROCEDURE INFORMATION: Exam: CT Head Without Contrast Exam date and time: 12/06/2021 7:02 PM Age: 81 years old Clinical indication: Altered mental status/memory loss; Confusion or disorientation; Patient HX: Ams/confusion; Additional info: Mental status change TECHNIQUE: Imaging protocol: Computed tomography of the head without contrast. Radiation optimization: All CT scans at this facility use at least one of these dose optimization techniques: automated exposure control; mA and/or kV adjustment per patient size (includes targeted exams where dose is matched to clinical indication); or iterative reconstruction. COMPARISON: CT head wo con* [id number] 06/13/2020 7:01 PM RADIATION DOSE METRICS: Total DLP (mGy-cm): 1638.28 FINDINGS: Brain: Mild atrophy and mild white matter chronic microvascular changes are noted. A small calcification is again seen in the left temporal lobe periventricular white matter. No hemorrhage or evidence of acute infarction. Cerebral ventricles: No ventriculomegaly. Paranasal sinuses: Visualized sinuses are unremarkable. No fluid levels. Mastoid air cells: Visualized mastoid air cells are well aerated. 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 Bones/joints: Unremarkable. No acute fracture. Soft tissues: Unremarkable. CT/CT head wo con* [id number] IMPRESSION: No acute intracranial abnormality.
--- NOTE | 2021-12-06 19:02 | CTR_ITS ---
PROCEDURE INFORMATION: Exam: CTA Chest With Contrast Exam date and time: 12/06/2021 7:02 PM Age: 81 years old Clinical indication: Abnormal findings; Abnormal lab test; Abnormal kidney function lab tests and elevated wbc; Abnormal diagnostic tests; Abnormal ekg and elevated d-dimer; Patient HX: C/O SOB w tachycardia L flnk pain w HX of stones; Additional info: SOB, tachycardia, L abdominal pain chronic cryptococcal fungal infection. TECHNIQUE: Imaging protocol: Computed tomographic angiography of the chest with contrast. 3D rendering (Not supervised by radiologist): MIP and/or 3D reconstructed images were created by the technologist. Radiation optimization: All CT scans at this facility use at least one of these dose optimization techniques: automated exposure control; mA and/or kV adjustment per patient size (includes targeted exams where dose is matched to clinical indication); or iterative reconstruction. Contrast material: VISI 320; Contrast volume: 95 ml; Contrast route: INTRAVENOUS (IV); COMPARISON: CT chest w con* [id number] 06/13/2020 4:58 PM RADIATION DOSE METRICS: Total DLP (mGy-cm): 1456.83 FINDINGS: Pulmonary arteries: No pulmonary embolus or aortic dissection. Aorta: Calcification of the thoracic aorta and/or great vessels consistent with atherosclerotic vessel disease. Lungs: Slight interval progression of multiple nodular opacities bilaterally 1 of which is cavitary in the posterior segment right upper lobe consistent with history of chronic cryptococcal fungal infection. Interval appearance of moderate inferior segment lingular pneumonia. Pleural spaces: Unremarkable. No pneumothorax. No pleural effusion. Heart: Stable severe calcified coronary artery disease. Lymph nodes: Unremarkable. No enlarged lymph nodes. Bones/joints: Moderate thoracic spondylosis. Soft tissues: Unremarkable. PROCEDURE INFORMATION: Exam: CT Abdomen And Pelvis With Contrast Exam date and time: 12/06/2021 7:02 PM Age: 81 years old Clinical indication: Abnormal findings; Abnormal lab test; Abnormal kidney function lab tests and elevated wbc; Abnormal diagnostic tests; Abnormal ekg and elevated d-dimer; Patient HX: C/O SOB w tachycardia L flnk pain w HX of stones; Additional info: SOB, tachycardia, L abdominal pain TECHNIQUE: Imaging protocol: Computed tomography of the abdomen and pelvis with contrast. Radiation optimization: All CT scans at this facility use at least one of these dose optimization techniques: automated exposure control; mA and/or kV adjustment per patient size (includes targeted exams where dose is matched to clinical indication); or iterative reconstruction. Contrast material: VISI 320; Contrast volume: 95 ml; Contrast route: INTRAVENOUS (IV); COMPARISON: CT chest w con* [id number] 06/13/2020 4:58 PM RADIATION DOSE METRICS: Total DLP (mGy-cm): 1456.83 FINDINGS: Liver: Normal. No mass. Gallbladder and bile ducts: Normal. No calcified stones. No ductal dilation. Pancreas: Normal. No ductal dilation. Spleen: Normal. No splenomegaly. Adrenal glands: Slight interval increased size of adrenal glands bilaterally, left greater than right, most consistent with adrenal hyperplasia. Kidneys and ureters: Multiple left renal hypodensities with the largest measuring < 1.0 cm, too small to further characterize. Multiple right renal hypodensities with the largest measuring < 1.0 cm, too small to further characterize. Stomach and bowel: Unremarkable. No obstruction. No mucosal thickening. Appendix: No evidence of appendicitis. Intraperitoneal space: Unremarkable. No free air. No significant fluid collection. Vasculature: Calcification of the abdominal aorta and/or iliac arteries consistent with atherosclerotic vessel disease. Lymph nodes: Unremarkable. No enlarged lymph nodes. Urinary bladder: Aldana balloon catheter in the urinary bladder. Reproductive: Unremarkable as visualized. Bones/joints: Unremarkable. No acute fracture. Soft tissues: Large 10.1 x 6.3 x 5.0 cm right inguinal hernia containing prominent loop of small bowel without obvious ischemia or obstruction. CT/CT angio chest w abd pel w con IMPRESSION: 1. Slight interval progression of multiple nodular opacities bilaterally 1 of which is cavitary in the posterior segment right upper lobe consistent with history of chronic cryptococcal fungal infection. 2. Interval appearance of moderate inferior segment lingular pneumonia. 3. No pulmonary embolus or aortic dissection. IMPRESSION: 1. Slight interval increased size of adrenal glands bilaterally, left greater than right, most consistent with adrenal hyperplasia. 2. Aldana balloon catheter in the urinary bladder. 3. Large 10.1 x 6.3 x 5.0 cm right inguinal hernia containing prominent loop of small bowel without obvious ischemia or obstruction.
--- NOTE | 2021-12-06 19:03 | ECG_ITS ---
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 Measurements Intervals [place] Rate: 108 P: 68 IN: 176 QRS: -81 QRSD: 145 T: 41 QT: 342 QTc: 459 Interpretive Statements SINUS TACHYCARDIA RIGHT BUNDLE BRANCH BLOCK [120+ ms QRS DURATION, UPRIGHT V1, 40+ ms S IN I/aVL/V4/V5/V6] INFERIOR MYOCARDIAL INFARCTION , PROBABLY OLD [40+ ms Q WAVE AND/OR ST/T ABNORMALITY IN II/aVF] Compared to ECG 06/13/2020 14:04:36 Sinus rhythm no longer present Myocardial infarct finding still present Electronically Signed On 12-07-2021 15:44:36 CDT by Dayne Rg M.D. [id number]
[2021-12-06 19:14] LABS: Basophils # 0.1 10^3/uL (0.0-0.1); Basophils % 0.2 %; Hematocrit 44.5 % (42.0-52.0); Hemoglobin 14.9 g/dL (11.7-16.6); Lymphocytes % 4.5 %; Mean Corpuscular HGB Conc 33.5 g/dL (30.0-36.0); Mean Corpuscular Hemoglobin 28.7 pg (28.0-34.0); Mean Corpuscular Volume 85.6 fl (80-94); Mean Platelet Volume 10.2 fL (7.4-10.4); Monocytes # 1.4 10^3/uL (0.2-0.9); Monocytes % 6.8 %; Neutrophils # 18.51 10^3/uL (1.8-7.7); Neutrophils % 87.6 %; Nucleated Red Blood Cells % 0 %; Platelet Count 182 10^3/cmm (130-400); Red Cell Distribution Width 13.4 % (12.1-15.1); White Blood Count 21.2 10^3/uL (4.0-10.0)
[2021-12-06 19:21] LABS: INR 1.09 (0.8-1.2)
[2021-12-06 19:23] LABS: D Dimer 2.87 ug/mIFEU (0-0.59)
[2021-12-06 19:31] LABS: Lactic Sepsis W/Reflex 2.7 mmol/L (0.5-2.2)
[2021-12-06 19:35] LABS: Troponin(5th) Baseline 40 ng/L (0-15)
[2021-12-06 19:44] LABS: ABG PCO2 28.4 mmHg (35-45); ABG PH Result 7.45 (7.35-7.45); Arterial Blood Gas Hematocrit 43.3 % (42-52); Base Excess ABG -2.8 mmol/L (-2.0-2.0); Blood Gas Allen Test Pos; Blood Gas Sample Site Radial, left; Blood Gas Sample Type Arterial; Carboxyhemoglobin 1.2 %THgb (0.4-20.1); HCO3 ABG 19.9 mmol/L (22-26); HGB O2 Sat 93.1 % (95-100); Methemoglobin 0.7 % (0.4-1.5); Oxygen Device NC; PO2 ABG 63.2 mmHg (80.0-100.0); Total Hemoglobin 14.1 g/dL (14-18)
[2021-12-06 19:46] LABS: Alanine Aminotransferase 38 U/L (0-41); Albumin Level 4.1 g/dL (3.5-5.2); Alkaline Phosphatase 140 IU/L (40-130); Blood Urea Nitrogen 38 mg/dL (8-23); Calcium 9.5 mg/dL (8.5-10.5); Carbon Dioxide 20 mmol/L (22-29); Chloride 102 mmol/L (98-107); Globulin 4.2 g/dL (1.3-4.6); Glucose 168 mg/dL (65-115); Magnesium 1.5 mg/dL (1.7-2.3); NT Pro B Type Natriuretic Pept 5175 pg/mL (0-450); Osmolality Calculated 299 mOsm/kg (285-295); Sodium 138 mmol/L (136-145); Total Bilirubin 0.9 mg/dL (0.15-1.2); Total Protein 8.3 g/dL (6.6-8.7)
[2021-12-06] MEDS: ondansetron 2 mg/ML SDV 2 mL 4 MG IVP (19:47)
[2021-12-06] MEDS: piperacillin-tazobactam 4.5 GM in sodium chloride 0.9% (plus) 50 ML IV (19:47)
[2021-12-06] MEDS: morphine 4 mg/mL SDV 1 mL IVP ×2 (19:47→21:46)
[2021-12-06 19:48] LABS: Anion Gap 20.5 (5-19); Aspartate Amino Transferase 34 U/L (0-40); Potassium 4.5 mmol/L (3.5-5.1)
[2021-12-06 19:49] LABS: Add Urine Culture? No; Add Urine Microscopic? YES; Amorphous Sediment Urine 1+ /hpf; Bacteria Urine TRACE /hpf; Bilirubin Urine Neg (Negative); Blood Urine 2+ (Negative); Glucose Urine UA Trace (Normal); Hyaline Casts Urine 0-4 /lpf; Ketones Urine Negative (Negative); Leukocyte Esterase Urine Negative (Negative); Nitrate Urine Negative (Negative); Protein Urine 1+ (Negative); RBC Urine 0-4 /hpf (0-2); Squamous Epithelial Cell Urine 0-4 /hpf (0-5); Urine Appearance Clear (CLEAR); Urine Color Yellow (Yellow); Urobilinogen Urine Norm (Negative); WBC Urine 0-4 /hpf (0-5); pH Urine 5 (5-7)
[2021-12-06] MEDS: iodixanol 320 mg/mL 100mL Btl IV (20:17)
[2021-12-06 21:00] LABS: Reflex Lactate Order REFLEX LACTIC ORDERD
--- NOTE | 2021-12-06 21:03 | ECG_ITS ---
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 Measurements Intervals [place] Rate: 108 P: 66 [place]: 177 QRS: -80 QRSD: 150 T: 46 QT: 340 QTc: 457 Interpretive Statements SINUS TACHYCARDIA WITH OCCASIONAL VENTRICULAR PREMATURE COMPLEXES RIGHT BUNDLE BRANCH BLOCK [120+ ms QRS DURATION, UPRIGHT V1, 40+ ms S IN I/aVL/V4/V5/V6] LEFT ANTERIOR FASCICULAR BLOCK [QRS AXIS <= -45, QR IN I, RS IN II] POSSIBLE SEPTAL MYOCARDIAL INFARCTION , OF INDETERMINATE AGE [30 ms Q WAVE IN V1/V2] Compared to ECG 12/06/2021 19:26:45 Ventricular premature complex(es) now present Left anterior fascicular block now present Myocardial infarct finding still present Electronically Signed On 12-07-2021 15:53:01 CDT by Dayne Rg M.D. [id number]
[2021-12-06 21:29] LABS: Troponin 5 2HR 43.82 ng/L (0-15); Troponin 5 2HR Delta 3.82 ABS# (0-10)
--- NOTE | 2021-12-06 22:26 | P.HP_ITS ---
Providers/Chief Complaint Admitting Physician: Mee Tao MD Primary Care Provider: Markus Allen MD Chief Complaint: sob,lethargib History of Present Illness Kalin Taylor Jr is a 81 year old male with a past medical history of urolithiasis, Klebsiella sepsis, brought to the emergency room today by his for reported altered mental status. reported the patient was acting disoriented, was found confused in the living room. At the time of my assessment patient is alert awake and oriented. He states he has been febrile over the last few days, has left flank pain which is currently relieved somewhat with morphine. No hematuria. Has some dysuria. Also reports an ongoing cough over the past week. Has a history of COVID-19 infection in April 2021. He has a past medical history of pulmonary cryptococcosis for which she was on fluconazole however states this was completed several years ago. On evaluation today he is noted to be febrile to 101. Tachycardic 130s, saturating 94% on 4 L/min supplemental O2. CTA of the chest without PE but shows consolidation. CT abdomen and pelvis without any acute abdominal events. Review of Systems General: Reports: 10 or more systems reviewed and unremarkable except in HPI and below Const: Denies: fever(s), chills or body aches Eyes: Denies: change in vision, blurry vision or photophobia ENMT: Reports: hoarseness; Denies: throat pain, enlarged tonsils, odynophagia or nasal congestion Card: Denies: chest pain, palpitations, irregular heart rhythm, edema, swelling of feet/ankles, lightheadedness, pre-syncope, dyspnea on exertion or orthopnea Resp: Denies: dyspnea, productive cough, non-productive cough, wheezing, stridor, pain on inspiration, change in phlegm color, hemoptysis or chest congestion GI: Denies: abdominal pain, nausea, vomiting, hematemesis, coffee ground emesis, dysphagia, heartburn, diarrhea, constipation, GI cramping, change in stool character, hematochezia or melena : Denies: flank pain, dysuria, urinary frequency, urinary urgency, urinary hesitancy or hematuria Musc: Denies: neck pain, back pain, extremity pain, joint swelling, joint warmth or deformity Neuro: Denies: headache(s), numbness in extremities, weakness in extremities, sensory changes, difficulty walking, frequent falls, dizziness, vertigo, behavioral changes, Slurred speech present or seizure-like activity Psych: Denies: anxiety, depression, suicidal ideation or homicidal ideation Endo: Denies: polyuria, polydipsia, tired all the time, cold intolerance or hot flashes Nigel/Lymph: Denies: easy bruising or easy bleeding Medications/Allergies Home Medications Medication Instructions Recorded Confirmed Last Taken Type escitalopram oxalate 20 mg tablet 20 mg PO DAILY PRN tab 10/06/19 10/12/20 10/12/20 History (Lexapro) alprazolam 0.25 mg tablet 0.25 mg PO BID PRN 07/30/20 10/12/20 10/12/20 History amlodipine 10 mg tablet 10 mg PO DAILY #30 tab 04/28/21 Unknown Rx metronidazole 500 mg tablet 500 mg PO TID #21 tab 04/28/21 Unknown Rx (Flagyl) Allergies Allergy/AdvReac Type Severity Reaction Status Date / Time No Known Allergies Allergy Verified 04/27/21 21:25 PFSH Acute PFSH: Medical History (Updated 12/07/21 @ 06:34 by Mee Tao MD) Bladder 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 Recurrent UTI [place] renal calculus Surgical History History of removal of eye Family History Mother , AT AGE 91 LYMPHOMA Cancer Father , AT AGE 72 STOMACH CANCER Cancer Social History Smoking and tobacco status: never smoked Alcohol intake: never Adopted: No Caregiver/support person: No Current occupational status: retired Vitals/I&O/Wt Last Vital Signs Temp 101.1 F H 12/06/21 22:11 Pulse 105 H 12/06/21 22:11 Resp 20 H 12/06/21 22:11 BP 176/78 12/06/21 22:11 Pulse Ox 94 12/06/21 22:11 12/06/21 12/06/21 12/06/21 06:59 14:59 22:59 Intake Total 50 / 50 Balance 50 / 50 Weight last 48 hrs Weight 84.368 kg Weight 83.915 kg Physical Exam Narrative: GEN: Awake, alert and oriented, no acute distress CVS: S1S2 N RS: CTA B/L except crackles over RUL Abd: Soft, nt/nd , bs+ 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 EXT: no edema, clubbing or cyanosis Urinary Catheter Management: Aldana: Cath Placed During This Visit: yes Urinary Catheter Date of Insertion: 12/06/21 Data : 12/07/21 05:25 12/06/21 19:00 Micro: Microbiology 12/06/21 19:25 Blood Culture - Preliminary Blood SPECIMEN COLLECTED 12/06/21 19:32 Blood Culture - Preliminary Blood SPECIMEN COLLECTED Other data: Radiology Impressions Chest X-Ray 12/06/21 19:02 IMPRESSION: Patchy bilateral suspected underlying nodular densities, similar to prior exam, a chest CT could further evaluate these as clinically indicated, previous chest CT from 06/13/2020 did demonstrate diffuse nodular densities as well, somewhat similar to this exam. Chest/Abdomen/Pelvis CT 12/06/21 19:02 IMPRESSION: 1. Slight interval progression of multiple nodular opacities bilaterally 1 of which is cavitary in the posterior segment right upper lobe consistent with history of chronic cryptococcal fungal infection. 2. Interval appearance of moderate inferior segment lingular pneumonia. 3. No pulmonary embolus or aortic dissection. IMPRESSION: 1. Slight interval increased size of adrenal glands bilaterally, left greater than right, most consistent with adrenal hyperplasia. 2. Aldana balloon catheter in the urinary bladder. 3. Large 10.1 x 6.3 x 5.0 cm right inguinal hernia containing prominent loop of small bowel without obvious ischemia or obstruction. Head CT 12/06/21 19:02 IMPRESSION: No acute intracranial abnormality. Laboratory Results WBC 19.1 10^3/uL (4.0-10.0) H 12/07/21 05:25 RBC 4.63 10^6/uL (4.1-5.3) 12/07/21 05:25 Hgb 12.9 g/dL (11.7-16.6) 12/07/21 05:25 Hct 40.2 % (42.0-52.0) L 12/07/21 05:25 MCV 86.8 fl (80-94) 12/07/21 05:25 MCH 27.9 pg (28.0-34.0) L 12/07/21 05:25 MCHC 32.1 g/dL (30.0-36.0) 12/07/21 05:25 RDW 13.8 % (12.1-15.1) 12/07/21 05:25 Plt Count 155 10^3/cmm (130-400) 12/07/21 05:25 MPV 10.2 fL (7.4-10.4) 12/07/21 05:25 Neut % (Auto) 80.5 % 12/07/21 05:25 Lymph % (Auto) 7.2 % 12/07/21 05:25 [place] % (Auto) 8.8 % 12/07/21 05:25 Eos % (Auto) 0.0 % 12/07/21 05:25 Baso % (Auto) 0.2 % 12/07/21 05:25 Neut # (Auto) 15.40 10^3/uL (1.8-7.7) H 12/07/21 05:25 Lymph # (Auto) 1.4 10^3/uL (0.8-4.8) 12/07/21 05:25 [place] # (Auto) 1.7 10^3/uL (0.2-0.9) H 12/07/21 05:25 Eos # (Auto) 0.0 10^3/uL (0.0-0.8) 12/07/21 05:25 Baso # (Auto) 0.0 10^3/uL (0.0-0.1) 12/07/21 05:25 Nucleated RBC % (auto) 0 % 12/07/21 05:25 Nucleated RBCs # 0.0 /100WBC 12/07/21 05:25 PT 14.40 SECONDS (12.1-14.9) 12/06/21 19:00 INR 1.09 (0.8-1.2) 12/06/21 19:00 D-Dimer 2.87 ug/mIFEU (0-0.59) H 12/06/21 19:00 Specimen Type Arterial 12/06/21 19:33 Sample Site Radial, left 12/06/21 19:33 ABG pH 7.45 (7.35-7.45) 12/06/21 19:33 ABG pCO2 28.4 mmHg (35-45) L 12/06/21 19:33 ABG pO2 63.2 mmHg (80.0-100.0) L 12/06/21 19:33 ABG HCO3 19.9 mmol/L (22-26) L 12/06/21 19:33 ABG Base Excess -2.8 mmol/L (-2.0-2.0) L 12/06/21 19:33 Jhonny Test Pos 12/06/21 19:33 Hematocrit 43.3 % (42-52) 12/06/21 19:33 Hgb O2 Saturation 93.1 % (95-100) L 12/06/21 19:33 Carboxyhemoglobin 1.2 %THgb (0.4-20.1) 12/06/21 19:33 Methemoglobin 0.7 % (0.4-1.5) 12/06/21 19:33 Total Hemoglobin 14.1 g/dL (14-18) 12/06/21 19:33 O2 Delivery Device Nc 12/06/21 19:33 O2 Liters/Min 2.0 % 12/06/21 19:33 Track Grinder ID Buttr 12/06/21 19:33 Sodium 136 mmol/L (136-145) 12/07/21 05:25 Potassium 4.6 mmol/L (3.5-5.1) 12/07/21 05:25 Chloride 103 mmol/L (98-107) 12/07/21 05:25 Carbon Dioxide 19 mmol/L (22-29) L 12/07/21 05:25 Anion Gap 18.6 (5-19) 12/07/21 05:25 BUN 44 mg/dL (8-23) H 12/07/21 05:25 Creatinine 2.4 mg/dL (0.7-1.2) H 12/07/21 05:25 GFR Calculation Not Reportable 12/07/21 05:25 Glucose 135 mg/dL (65-115) H 12/07/21 05:25 Calculated Osmolality 295 mOsm/kg (285-295) 12/07/21 05:25 Lactic Acid 1.1 mmol/L (0.5-2.2) 12/07/21 05:25 Lactic Acid (Sepsis) 1.5 mmol/L (0.5-2.2) 12/06/21 22:25 Calcium 7.8 mg/dL (8.5-10.5) L 12/07/21 05:25 Magnesium 1.5 mg/dL (1.7-2.3) L 12/06/21 19:00 Total Bilirubin 1.0 mg/dL (0.15-1.2) 12/07/21 05:25 AST 17 U/L (0-40) 12/07/21 05:25 ALT 28 U/L (0-41) 12/07/21 05:25 Alkaline Phosphatase 108 IU/L (40-130) 12/07/21 05:25 Troponin T Baseline 40 ng/L (0-15) H 12/06/21 19:00 Troponin T 120 Minute 43.82 ng/L (0-15) H 12/06/21 21:04 Delta Troponin T 3.82 ABS# (0-10) 12/06/21 21:04 Troponin T Hi Sens 6Hr 53.08 ng/L (0-15) H 12/07/21 01:00 Troponin T Hi Sens 6Hr Delta 13.08 ng/L (0-12) H* 12/07/21 01:00 NT-Pro-B Natriuret Pep 5175 pg/mL (0-450) H 12/06/21 19:00 Total Protein 7.0 g/dL (6.6-8.7) 12/07/21 05:25 Albumin 3.7 g/dL (3.5-5.2) 12/07/21 05:25 Globulin 3.3 g/dL (1.3-4.6) 12/07/21 05:25 TSH 1.49 uIU/mL (0.27-4.20) 12/07/21 05:25 Urine Color Yellow (Yellow) 12/06/21 19:24 Urine Appearance Clear (CLEAR) 12/06/21 19:24 Urine pH 5 (5-7) 12/06/21 19:24 Ur Specific [place] 1.020 (1.005-1.030) 12/06/21 19:24 Urine Protein 1+ (Negative) H 12/06/21 19:24 Urine Glucose (UA) Trace (Normal) H 12/06/21 19:24 Urine Ketones Negative (Negative) 12/06/21 19:24 Urine Blood 2+ (Negative) H 12/06/21 19:24 Urine Nitrate Negative (Negative) 12/06/21 19:24 Urine Bilirubin Neg (Negative) 12/06/21 19:24 Urine Urobilinogen Norm mg/dL (Negative) 12/06/21 19:24 Ur Leukocyte Esterase Negative (Negative) 12/06/21 19:24 Urine RBC 0-4 /hpf (0-2) H 12/06/21 19:24 Urine WBC 0-4 /hpf (0-5) H 12/06/21 19:24 Ur Squamous Epith Cells 0-4 /hpf (0-5) H 12/06/21 19:24 Ur Transition Epith Cell 5-10 /hpf 12/06/21 19:24 Amorphous Sediment 1+ /hpf 12/06/21 19:24 Urine Bacteria Trace /hpf (NONE) 12/06/21 19:24 Hyaline Casts 0-4 /lpf H 12/06/21 19:24 A&P Assessment and plan (1) Sepsis: Patient presenting with sepsis as evidenced by fever, leukocytosis to 21, tachyc ardia 130s and elevated lactate. Suspected source to be urinary tract infection versus pneumonia CT chest with chronic nodular opacities with a past medical history of chronic cryptococcal fungal infection, not currently on fluconazole, follows with ID in [place]. There is interval appearance of lingular pneumonia. Currently no hydronephrosis noted on abdominal CT. Multiple small left and ri ght renal hypodensities. Empiric antibiotic therapy with piperacillin tazobactam, vancomycin and cesar thromycin for atypical coverage. Sputum Gram stain and culture Blood culture taken prior to initiation of antibiotics. Noted abdominal hernia, however no signs of strangulation or obstruction. As needed morphine for pain control IV fluids normal saline at 75 cc an hour. Repeat lactate Status: Acute (2) Pneumonia: Status: Acute (3) Acute alteration in mental status: Currently alert awake and oriented Ct head without acute intracranial abnormalities Status: Acute Attestations Medical Necessity Statement*: >2midnight admission anticipated for management of sepsis, need for iv abx Coding Level of Care Code Acute Button [facility]der for [facility] Diagnoses Pneumonia J18.9 Acute alteration in mental status R41.82 Sepsis A41.9
[2021-12-06] MEDS: sodium chloride 0.9% 1,000 ML 75 ML IV (22:51)
[2021-12-06] MEDS: acetaminophen 325 mg Tablet 650 MG PO (22:51)
[2021-12-06 22:56] LABS: Lactic Acid level (Lactate) 1.5 mmol/L (0.5-2.2)
[2021-12-06] MEDS: enoxaparin 30 mg/0.3 mL Syringe SUBCUT (23:10)
--- NOTE | 2021-12-06 23:37 | PC.PHAR ---
Pharmacokinetic dosing service Date: 12/07/21 Time: 0000 Objective: Patient: Kalin Taylor Floor: 277.2 Age: 81 yo Serum creatinine: 1.9 mg/dL Height: 69.0 Inches Weight (kg): 84.368 Diagnosis: Relevant medical/social history: Cultures and sensitivities: Other labs: Assessment: IBW (kg): 70.70 Dosing wt(kg): 84.368 Estimated Creatinine clearance (ml/min): 30.0 CRCL method: Cockcroft and Gault using ibw(default). Drug selected: Vancomycin Loading dose (mg): 0 Vd (liters): 75.9 (factor used: 0.9 L/kg) Kaushik (hr-1): 0.029 Half life (hrs): 23.90 Recommended dose: 1250 mg Interval: 24 hrs Infusion time (hrs): 1.5 Predicted peak (mcg/mL): 32.1 Predicted trough (mcg/mL): 16.72 Total body weight is being used for vancomycin dosing. Renal function is stable [ ] /unstable [ ] Recommendations: Give Vancomycin 1250 mg q 24 hrs with an expected Cpeak of 32.1 mcg/ml and an expected Ctrough of 16.72 mcg/ml Renal dosing of other antibiotics (review renal dosing of other medications and list guidelines here): Thank you for the consult, will continue to follow. Signature: Alia Duenas [facility]
[2021-12-06] MEDS: vancomycin 1,250 MG/250 ML PIGGYBACK 250 MG IV (23:41)
[2021-12-07] VITALS (15 sets, daily range): BP systolic 123–132; BP diastolic 67–76; PULSE 92–178; RESP 16–26; TEMP 36.8–37.4; O2SAT 93–97
[2021-12-07] MEDS: morphine 4 mg/mL SDV 1 mL 2 MG IVP ×5 (00:31→18:07)
[2021-12-07] MEDS: metoprolol tartrate 1 mg/1 mL SDV 5 mL 2.5 MG IVP (00:31)
--- NOTE | 2021-12-07 01:03 | ECG_ITS ---
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 Measurements Intervals [place] Rate: 106 P: 64 VT: 173 QRS: -81 QRSD: 150 T: 51 QT: 350 QTc: 465 Interpretive Statements SINUS TACHYCARDIA RIGHT BUNDLE BRANCH BLOCK [120+ ms QRS DURATION, UPRIGHT V1, 40+ ms S IN I/aVL/V4/V5/V6] INFERIOR MYOCARDIAL INFARCTION , OF INDETERMINATE AGE [40+ ms Q WAVE AND/OR ST/T ABNORMALITY IN II/aVF] Compared to ECG 12/06/2021 21:09:35 Ventricular premature complex(es) no longer present Left anterior fascicular block no longer present Myocardial infarct finding still present Electronically Signed On 12-07-2021 15:52:51 CDT by Dayne Rg M.D. [id number]
[2021-12-07 01:24] LABS: Troponin 5 6HR 53.08 ng/L (0-15)
[2021-12-07 01:28] LABS: Troponin 5 6HR Delta 13.08 ng/L (0-12)
[2021-12-07] MEDS: piperacillin-tazobactam 3.375 GM in sodium chloride 0.9% (plus) 50 ML IV ×3 (03:28→19:49)
[2021-12-07 05:50] LABS: Basophils % 0.2 %; Hematocrit 40.2 % (42.0-52.0); Hemoglobin 12.9 g/dL (11.7-16.6); Lymphocytes # 1.4 10^3/uL (0.8-4.8); Lymphocytes % 7.2 %; Mean Corpuscular HGB Conc 32.1 g/dL (30.0-36.0); Mean Corpuscular Hemoglobin 27.9 pg (28.0-34.0); Mean Corpuscular Volume 86.8 fl (80-94); Mean Platelet Volume 10.2 fL (7.4-10.4); Monocytes # 1.7 10^3/uL (0.2-0.9); Monocytes % 8.8 %; Neutrophils % 80.5 %; Nucleated Red Blood Cells % 0 %; Platelet Count 155 10^3/cmm (130-400); Red Blood Count 4.63 10^6/uL (4.1-5.3); Red Cell Distribution Width 13.8 % (12.1-15.1); White Blood Count 19.1 10^3/uL (4.0-10.0)
[2021-12-07 06:07] LABS: Lactic Sepsis W/Reflex 1.1 mmol/L (0.5-2.2)
[2021-12-07 06:25] LABS: Alanine Aminotransferase 28 U/L (0-41); Albumin Level 3.7 g/dL (3.5-5.2); Alkaline Phosphatase 108 IU/L (40-130); Anion Gap 18.6 (5-19); Aspartate Amino Transferase 17 U/L (0-40); Blood Urea Nitrogen 44 mg/dL (8-23); Calcium 7.8 mg/dL (8.5-10.5); Carbon Dioxide 19 mmol/L (22-29); Chloride 103 mmol/L (98-107); Globulin 3.3 g/dL (1.3-4.6); Glucose 135 mg/dL (65-115); Osmolality Calculated 295 mOsm/kg (285-295); Potassium 4.6 mmol/L (3.5-5.1); Sodium 136 mmol/L (136-145); Thyroid Stimulating Hormone 1.49 uIU/mL (0.27-4.20)
[2021-12-07] MEDS: pantoprazole DR 40 mg Tablet PO (08:41)
[2021-12-07] MEDS: escitalopram 10 mg Tablet 20 MG PO (08:41)
[2021-12-07] MEDS: azithromycin 250 mg Tablet 500 MG PO (08:41)
[2021-12-07] MEDS: amlodipine 10 mg Tablet PO (08:41)
[2021-12-07] MEDS: TRAMadol 50 mg Tablet PO (20:21)
[2021-12-08] VITALS (12 sets, daily range): BP systolic 111–137; BP diastolic 63–79; PULSE 82–98; RESP 16–20; TEMP 36.7–37.1; O2SAT 91–97
[2021-12-08] MEDS: enoxaparin 30 mg/0.3 mL Syringe SUBCUT (00:06)
[2021-12-08] MEDS: vancomycin 1,250 MG/250 ML PIGGYBACK 250 MG IV (00:07)
[2021-12-08] MEDS: morphine 4 mg/mL SDV 1 mL 2 MG IVP ×3 (00:16→16:48)
[2021-12-08] MEDS: TRAMadol 50 mg Tablet PO ×2 (03:44→13:05)
[2021-12-08] MEDS: piperacillin-tazobactam 3.375 GM in sodium chloride 0.9% (plus) 50 ML IV ×3 (03:44→19:44)
[2021-12-08] MEDS: escitalopram 10 mg Tablet 20 MG PO (07:55)
[2021-12-08] MEDS: amlodipine 10 mg Tablet PO (07:55)
[2021-12-08] MEDS: pantoprazole DR 40 mg Tablet PO (07:55)
[2021-12-08] MEDS: azithromycin 250 mg Tablet 500 MG PO (07:55)
--- NOTE | 2021-12-08 08:12 | PM.PN ---
Subjective Subjective: Admitted overnight. Denies any nausea vomiting, headache. Laying comfortably in bed on examination. Asking when can he go home. States does not have any abdominal pain. Feeling a lot better than before. 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 EXT: no edema, clubbing or cyanosis Urinary Catheter Management: Aldana: Cath Placed During This Visit: yes Reason for Continuing Indwelling Catheter: Other Urinary Catheter Date of Insertion: 12/06/21 Data : 12/09/21 04:53 12/09/21 04:53 Micro: Microbiology 12/06/21 19:25 Blood Culture - Preliminary Blood NEGATIVE TO DATE 12/06/21 19:32 Blood Culture - Preliminary Blood NEGATIVE TO DATE 12/06/21 14:59 Gram Stain - Final Sputum - Expectorated Sputum A&P Assessment and plan (1) Sepsis: Patient presenting with sepsis as evidenced by fever, leukocytosis to 21, tachycardia 130s and elevated lactate. Suspected source to be urinary tract infection versus pneumonia CT chest with chronic nodular opacities with a past medical history of chronic cryptococcal fungal infection, not currently on fluconazole, follows with ID in [place]. There is interval appearance of lingular pneumonia. Currently no hydronephrosis noted on abdominal CT. Multiple small left and right renal hypodensities. Empiric antibiotic therapy with piperacillin tazobactam, vancomycin and azithromycin for atypical coverage. Sputum Gram stain and culture Blood culture taken prior to initiation of antibiotics. Noted abdominal hernia, however no signs of strangulation or obstruction. As needed morphine for pain control IV fluids normal saline at 75 cc an hour. Repeat lactate Status: Resolved (2) Pneumonia: Status: Acute (3) Acute alteration in mental status: Currently alert awake and oriented Ct head without acute intracranial abnormalities Status: Resolved Attestations Medical Necessity Statement*: Further admission for management of sepsis, AMS while pneumonia is ruled out Time Spent in Patient Care: Greater than 35 minutes Coding Level of Care Code Acute Air Tucker for [facility] Fwd Diagnoses Sepsis A41.9 Pneumonia J18.9 Acute alteration in mental status R41.82
--- NOTE | 2021-12-08 10:23 | PC.CHAP ---
Pastoral Care Encounter/Spiritual Assessment Type of Contact [] Declined cooky packer visit [] Patient/Family/Request visit [] Outpatient visit [] Follow-up visit [] Physician referral [] Code/Alert [x] Routine visit [] Staff referral [] Actively dying [] Patient sleeping [] Family support [] [] Out of room [] Palliative care [] [] Receiving care in room [] Pre-surgical visit [] Trauma [] Long length of stay [] ICU visit [] Other: Relational/Emotional Strength x[] Patient feels connected with others/family/visitors/staff [] Distress [] Loneliness/isolation [] Abandonment Spirituality of Patient [x] Person of Rima [x] Attends Spiritism of their Rima [x] Believes in Prayer [x] Reads Bible or Pentecostalism materials [] There are Spiritual issues to be addressed Sprayer Automatic Spray Machine Interventions [x] Prayer [x] Active listening [x] Non-anxious presence []x Spiritual/emotional support [] Crisis/trauma care [] Spiritual counseling [] Bereavement support [] Provided bereavement packet [] Provided Bible/devotional materials [] Provided toy/stuffed animal, coloring book to patient or family member [] Provided Communion [] Anointing/[place] [] Salvation [] Completed spiritual assessment [] Other: Impact on Illness or Injury [] Angry [] Fearful [] Anxious [] Often cries [] Exhaustion [] Unable to work [] Unable to attend druze [] Unable to walk/stand [] Unable to read [] Unable to drive [] Unable to eat/drink [] Unable to sleep [] Unable to be with family [] Patient intubated [] Other: Summary Time spent with patient 15 min
--- NOTE | 2021-12-08 13:59 | CTR_ITS ---
PROCEDURE INFORMATION: Exam: CT Abdomen And Pelvis Without Contrast Exam date and time: 12/08/2021 1:59 PM Age: 81 years old Clinical indication: Abdominal pain; Left; Patient HX: History--lt flank pain HX of stones; Additional info: Possible stones TECHNIQUE: Imaging protocol: Computed tomography of the abdomen and pelvis without contrast. Radiation optimization: All CT scans at this facility use at least one of these dose optimization techniques: automated exposure control; mA and/or kV adjustment per patient size (includes targeted exams where dose is matched to clinical indication); or iterative reconstruction. COMPARISON: CT angio chest w abd pel w con 12/06/2021 8:16 PM RADIATION DOSE METRICS: Total DLP (mGy-cm): 1530.98 FINDINGS: Lungs: Some interval improvement of the atelectasis at the lingula. Bibasilar pulmonary nodules are not significantly changed from prior study. Liver: Normal. No mass. Gallbladder and bile ducts: Normal. No calcified stones. No ductal dilation. Pancreas: Normal. No ductal dilation. Spleen: Scattered punctate calcified granulomas. No splenomegaly. Adrenal glands: Lobulated nodular contour of the left adrenal gland. Right adrenal gland is unremarkable. Kidneys and ureters: Lobulated moderate atrophy of the kidneys. No renal stones. Vascular calcifications present. No hydronephrosis. Stomach and bowel: Right inguinal hernia containing loops of small bowel noted. No obstruction. No mucosal thickening. Appendix: No evidence of appendicitis. Intraperitoneal space: Unremarkable. No free air. No significant fluid collection. Vasculature: Infrarenal abdominal aortic aneurysm measuring 3 cm. Lymph nodes: Unremarkable. No enlarged lymph nodes. Urinary bladder: Aldana catheter noted within a decompressed bladder. Reproductive: Unremarkable as visualized. Bones/joints: No acute fracture. Soft tissues: Unremarkable. CT/CT kidney stone [id number] IMPRESSION: 1. No acute findings. No renal stones. 2. Right inguinal hernia containing loops of small bowel. No bowel obstruction. 3. 3 cm infrarenal abdominal aortic aneurysm.
[2021-12-08] MEDS: dextrose 5%-sod chloride 0.45% 1,000 ML 75 ML IV (15:01)
[2021-12-09] VITALS (10 sets, daily range): BP systolic 119–184; BP diastolic 57–84; PULSE 79–96; RESP 16–24; TEMP 36.7–37; O2SAT 90–93
[2021-12-09] MEDS: vancomycin 1,250 MG/250 ML PIGGYBACK 250 MG IV (00:22)
[2021-12-09] MEDS: enoxaparin 30 mg/0.3 mL Syringe SUBCUT ×2 (00:22→20:13)
[2021-12-09] MEDS: piperacillin-tazobactam 3.375 GM in sodium chloride 0.9% (plus) 50 ML IV ×4 (04:19→20:11)
[2021-12-09] MEDS: TRAMadol 50 mg Tablet PO (04:19)
[2021-12-09] MEDS: dextrose 5%-sod chloride 0.45% 1,000 ML 75 ML IV ×2 (04:20→17:13)
[2021-12-09 05:22] LABS: Basophils # 0.1 10^3/uL (0.0-0.1); Basophils % 0.7 %; Eosinophils # 0.2 10^3/uL (0.0-0.8); Eosinophils % 2.8 %; Hematocrit 36.1 % (42.0-52.0); Hemoglobin 11.5 g/dL (11.7-16.6); Lymphocytes % 14.5 %; Mean Corpuscular HGB Conc 31.9 g/dL (30.0-36.0); Mean Corpuscular Hemoglobin 28.3 pg (28.0-34.0); Mean Corpuscular Volume 88.7 fl (80-94); Mean Platelet Volume 10.7 fL (7.4-10.4); Monocytes # 0.6 10^3/uL (0.2-0.9); Monocytes % 8.2 %; Neutrophils % 73.4 %; Nucleated Red Blood Cells % 0 %; Platelet Count 146 10^3/cmm (130-400); Red Blood Count 4.07 10^6/uL (4.1-5.3); Red Cell Distribution Width 13.6 % (12.1-15.1); White Blood Count 7.1 10^3/uL (4.0-10.0)
[2021-12-09 05:39] LABS: Alanine Aminotransferase 16 U/L (0-41); Albumin Level 3.1 g/dL (3.5-5.2); Alkaline Phosphatase 95 IU/L (40-130); Anion Gap 14.1 (5-19); Aspartate Amino Transferase 13 U/L (0-40); Blood Urea Nitrogen 43 mg/dL (8-23); Calcium 8.7 mg/dL (8.5-10.5); Carbon Dioxide 21 mmol/L (22-29); Chloride 104 mmol/L (98-107); Globulin 3.6 g/dL (1.3-4.6); Glucose 119 mg/dL (65-115); Osmolality Calculated 292 mOsm/kg (285-295); Potassium 4.1 mmol/L (3.5-5.1); Sodium 135 mmol/L (136-145); Total Bilirubin 0.4 mg/dL (0.15-1.2); Total Protein 6.7 g/dL (6.6-8.7)
[2021-12-09] MEDS: amlodipine 10 mg Tablet PO (08:10)
[2021-12-09] MEDS: azithromycin 250 mg Tablet 500 MG PO (08:10)
[2021-12-09] MEDS: escitalopram 10 mg Tablet 20 MG PO (08:10)
[2021-12-09] MEDS: pantoprazole DR 40 mg Tablet PO (08:10)
[2021-12-09] MEDS: ipratropium-albuterol 3 mL Neb INHALATION (09:26)
--- NOTE | 2021-12-09 09:45 | PM.PN ---
Subjective Subjective: Pt's d/c was cancelled yesterday as could not manage at home and would like him to try SNF. Pt doing better. Denies any complaint. He is at his baseline mental status now. Denies CP, SOB Vitals/I&O/Wt Last Vital Signs Temp 98.2 F 12/08/21 19:40 Pulse 89 12/08/21 19:40 Resp 18 12/08/21 19:40 BP 111/63 12/08/21 19:40 Pulse Ox 91 12/08/21 19:40 12/08/21 12/08/21 12/08/21 06:59 14:59 22:59 Intake Total 300 / 2480 650 / 650 50 / 700 Output Total 0 / 550 1200 / 1200 Balance 300 / 1930 650 / 650 -1150 / -500 Weight last 48 hrs Weight 84.368 kg Physical Exam Narrative: NAD CVS S1S2, RRR, Mur (-) Resp: CTA Abd: soft, NT, BS+ Edema (-)REFINERY OPERATOR HELPER CRACKING UNIT A&Ox2 Urinary Catheter Management: Aldana: Cath Placed During This Visit: yes Reason for Continuing Indwelling Catheter: Acute Urinary Retention or Obstruction Urinary Catheter Date of Insertion: 12/06/21 Data : 12/09/21 04:53 12/09/21 04:53 Micro: Microbiology 12/06/21 14:59 Gram Stain - Final Sputum - Expectorated Sputum Sputum Culture - Preliminary 12/06/21 23:37 Urine Culture - Final Urine Catheterized 12/06/21 19:25 Blood Culture - Preliminary Blood NEGATIVE TO DATE 12/06/21 19:32 Blood Culture - Preliminary Blood NEGATIVE TO DATE A&P Assessment and plan (1) Sepsis: resolved Status: Acute (2) COVID-19: resolved Status: Acute (3) Respiratory failure: resolved Status: Acute Qualifiers: Chronicity: acute Respiratory failure complication: hypoxia Qualified Code(s): J96.01 - Acute respiratory failure with hypoxia (4) Pneumonia: resolved Status: Acute (5) Acute alteration in mental status: at baseline now Status: Acute (6) Hydronephrosis: Status: Acute (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 Clinically better but unable to do ADLS. Awaiting for NH/SNF placement Time Spent in Patient Care: 35 min Coding Level of Care Code Acute Turntable Operator for [facility] Fwd Diagnoses Sepsis A41.9 COVID-19 U07.1 Respiratory failure J96.01 Chronicity: acute Respiratory failure complication: hypoxia Pneumonia J18.9 Acute alteration in mental status R41.82 Hydronephrosis N13.30 BPH with obstruction/lower urinary tract symptoms N40.1; N13.8
--- NOTE | 2021-12-09 10:55 | PC.SOCIAL ---
IMM Update Pg. 2 of IMM updated and reviewed with patient who verbalized understanding. Copy provided.
--- NOTE | 2021-12-09 11:02 | PC.NURSE ---
Patient's is requesting that the patient go to a snf for rehab. Siri is her name and she would like Dr. Roe to call her on her cell phone [phone].
--- NOTE | 2021-12-09 19:00 | PC.NURSE ---
Report to Tricia BRAUN at this time.
[2021-12-09 23:05] LABS: Vancomycin Trough 16.2 ug/mL (10-15)
[2021-12-10] VITALS (8 sets, daily range): BP systolic 148–192; BP diastolic 66–86; PULSE 83–97; RESP 16–24; TEMP 36.4–36.9; O2SAT 91–94
[2021-12-10] MEDS: vancomycin 1,250 MG/250 ML PIGGYBACK 250 MG IV (00:51)
--- NOTE | 2021-12-10 01:15 | PC.NURSE ---
Pt lying in bed resting with eyes closed. Resp even and non-labored no distress noted. Pt had no c/o pain or discomfort at present time. No needs voiced. Call light in reach.
[2021-12-10] MEDS: piperacillin-tazobactam 3.375 GM in sodium chloride 0.9% (plus) 50 ML IV ×3 (04:17→20:16)
--- NOTE | 2021-12-10 07:30 | PC.NURSE ---
Patient pulled his Aldana Cath out at this time. Balloon intact. Bleeding controlled
[2021-12-10] MEDS: escitalopram 10 mg Tablet 20 MG PO (08:24)
[2021-12-10] MEDS: pantoprazole DR 40 mg Tablet PO (08:25)
[2021-12-10] MEDS: amlodipine 10 mg Tablet PO (08:25)
--- NOTE | 2021-12-10 12:37 | PC.CHAP ---
Pastoral Care Encounter/Spiritual Assessment Type of Contact [] Declined accountant supervisor visit [] Patient/Family/Request visit [] Outpatient visit [] Follow-up visit [] Physician referral [] Code/Alert [x] Routine visit [] Staff referral [] Actively dying [] Patient sleeping [] Family support [] [] Out of room [] Palliative care [] [] Receiving care in room [] Pre-surgical visit [] Trauma [] Long length of stay [] ICU visit [] Other: Relational/Emotional Strength [x] Patient feels connected with others/family/visitors/staff [] Distress [] Loneliness/isolation [] Abandonment Spirituality of Patient [x] Person of Rima [] Attends Latter Day of their Rima [x] Believes in Prayer [] Reads Bible or Sikhism materials [] There are Spiritual issues to be addressed Priming Powder Premix Blender Interventions [x] Prayer [x] Active listening [] Non-anxious presence [] Spiritual/emotional support [] Crisis/trauma care [] Spiritual counseling [] Bereavement support [] Provided bereavement packet [] Provided Bible/devotional materials [] Provided toy/stuffed animal, coloring book to patient or family member [] Provided Communion [] Anointing/[place] [] Salvation x[x] Completed spiritual assessment [] Other: Impact on Illness or Injury [] Angry [] Fearful [] Anxious [] Often cries [] Exhaustion [] Unable to work [] Unable to attend cheondoism [] Unable to walk/stand [] Unable to read [] Unable to drive [] Unable to eat/drink [] Unable to sleep [] Unable to be with family [] Patient intubated [] Other: Summary Time spent with patient 5 min
--- NOTE | 2021-12-10 15:30 | P.PN_ITS ---
Subjective Subjective: Pt seen and examined on 12/10/21. Latev entry Pt juvencio to be doing OK. is unable to to take him as she will not be able to manage him. Wants SNF transfer. Pt denies CP, SOB, cough Vitals/I&O/Wt Last Vital Signs Temp 98.4 F 12/10/21 14:45 Pulse 74 12/10/21 14:45 Resp 17 12/10/21 14:45 BP 148/66 12/10/21 14:45 Pulse Ox 95 12/10/21 14:45 Physical Exam Narrative: NAD CVS: S1S2, RRR, Mur (-) Resp: CTA Abd: soft, NT, BS+ Edema (-) SHIPS OR BARGES LOADER: A&Ox2 Urinary Catheter Management: Aldana: Cath Placed During This Visit: yes, but has since been removed by the nurse Reason for Continuing Indwelling Catheter: Decision to DC Catheter Urinary Catheter Date of Insertion: 12/06/21 Date Urinary Catheter Removed: 12/10/21 Time Urinary Catheter Discontinued: 07:30 Data : 12/09/21 04:53 12/09/21 04:53 A&P Assessment and plan (1) Pneumonia: Better Status: Acute (2) Recurrent UTI: Resolved Status: Acute (3) Sepsis: improved Status: Acute (4) Acute respiratory failure: improved Status: Acute (5) COVID-19: off quarantine Status: Acute (6) Altered mental state: at baseline Status: Acute (7) Hydronephrosis: stable Status: Acute Plan Continue current meds Awaiting on SNF transfer PT Attestations Medical Necessity Statement*: Pt recdovering from Sepsis, Acute Respiratory Failure, Pneumonia, COVID 19 infection will need continued hospitalization due to pending SNF transfer Time Spent in Patient Care: 35 min Coding Level of Care Code Acute Supervisor Fine Grading for [facility] Fwd Diagnoses Pneumonia J18.9 Recurrent UTI N39.0 Sepsis A41.9 Acute respiratory failure J96.00 COVID-19 U07.1 Altered mental state R41.82 Hydronephrosis N13.30
--- NOTE | 2021-12-10 21:00 | PC.NURSE ---
Assisted Pt to bsc pt had large soft BM. Assisted pt back to bed. Pt had no c/o pain or discomfort. Call light in reach.
[2021-12-10] MEDS: enoxaparin 30 mg/0.3 mL Syringe SUBCUT (22:15)
[2021-12-11] VITALS (8 sets, daily range): BP systolic 151–184; BP diastolic 75–82; PULSE 68–84; RESP 16–20; TEMP 36.4–37.3; O2SAT 94–96
[2021-12-11] MEDS: vancomycin 1,250 MG/250 ML PIGGYBACK 250 MG IV (00:40)
[2021-12-11] MEDS: piperacillin-tazobactam 3.375 GM in sodium chloride 0.9% (plus) 50 ML IV ×2 (03:48→20:37)
[2021-12-11] MEDS: escitalopram 10 mg Tablet 20 MG PO (07:49)
[2021-12-11] MEDS: pantoprazole DR 40 mg Tablet PO (07:50)
[2021-12-11] MEDS: amlodipine 10 mg Tablet PO (07:50)
--- NOTE | 2021-12-11 09:26 | PC.SOCIAL ---
IMM update IMM updated with patient. Copy Pg 2 provided. Verbalized an understanding. Initialled, dated, timed, and placed in chart.
--- NOTE | 2021-12-11 16:15 | P.PN_ITS ---
Subjective Subjective: Late entry. Pt seen and examined on 12/11/21 Pt doing OK. Denies CP, sobm cough. Feels weak. Awaiting for SNF transfer Vitals/I&O/Wt Last Vital Signs Temp 98.4 F 12/11/21 14:45 Pulse 74 12/11/21 14:45 Resp 16 12/11/21 14:45 BP 150/68 12/11/21 14:45 Pulse Ox 95 12/11/21 14:45 Physical Exam Narrative: NAD CVS: S1S2, RRR, Mur(-) Resp: CTA Abd sof, NT, BS+ Edema (-) BEVERAGE MANAGER A&Ox2 Urinary Catheter Management: Aldana: Cath Placed During This Visit: yes, but has since been removed by the nurse Reason for Continuing Indwelling Catheter: Decision to DC Catheter Urinary Catheter Date of Insertion: 12/06/21 Date Urinary Catheter Removed: 12/10/21 Time Urinary Catheter Discontinued: 07:30 Data : 12/09/21 04:53 12/09/21 04:53 A&P Assessment and plan (1) Altered mental state: at baseline now Status: Acute (2) COVID-19: post quarantine now Status: Acute (3) Hydronephrosis: stable Status: Acute (4) Acute respiratory failure: improved Status: Acute (5) Sepsis: resolved Status: Acute (6) Pneumonia: improved Status: Acute Plan Norvasc 5 mg qd PT Ref to SNF Continue current meds Attestations Medical Necessity Statement*: Pt recovering from sepsis, pneumonia, COVID 19, infection, AMS needs continued hospitalization. Awaiting SNF transfer Time Spent in Patient Care: 35 min Coding Level of Care Code Acute Assistant Press Operator for [facility] Jhonny Diagnoses Altered mental state R41.82 COVID-19 U07.1 Hydronephrosis N13.30 Acute respiratory failure J96.00 Sepsis A41.9 Pneumonia J18.9
[2021-12-11] MEDS: enoxaparin 30 mg/0.3 mL Syringe SUBCUT (23:31)
[2021-12-12] VITALS: BP 179/76; PULSE 75; RESP 18; TEMP 37.2; O2SAT 99
[2021-12-12] MEDS: vancomycin 1,250 MG/250 ML PIGGYBACK 250 MG IV (00:56)
[2021-12-12 02:22] VITALS: BP 162/73
[2021-12-12 04:08] VITALS: BP 160/71; PULSE 65; RESP 18; TEMP 36.6; O2SAT 95
[2021-12-12] MEDS: piperacillin-tazobactam 3.375 GM in sodium chloride 0.9% (plus) 50 ML IV ×2 (04:24→11:26)
--- NOTE | 2021-12-12 04:43 | PC.NURSE ---
pt rested quietly throughout shift. VSS. No complaints of pain. Pt uses urinal. Adequate UOP. Pt repositioned frequently. Frequent rounding done. All needs met.
[2021-12-12 07:52] VITALS: BP 167/75; PULSE 76; RESP 16; TEMP 36.9; O2SAT 95
[2021-12-12] MEDS: escitalopram 10 mg Tablet 20 MG PO (08:34)
[2021-12-12] MEDS: amlodipine 10 mg Tablet PO (08:34)
[2021-12-12] MEDS: pantoprazole DR 40 mg Tablet PO (08:34)
--- NOTE | 2021-12-12 10:35 | PM.PN ---
Subjective Subjective: Pt doing well. Denies any complaint. Awaiting for SNF placement Vitals/I&O/Wt Last Vital Signs Temp 98.5 F 12/12/21 07:52 Pulse 76 12/12/21 07:52 Resp 16 12/12/21 07:52 BP 167/75 12/12/21 07:52 Pulse Ox 95 12/12/21 07:52 12/11/21 12/12/21 12/12/21 22:59 06:59 14:59 Intake Total 550 / 960 1050 / 1050 Output Total 700 / 700 200 / 200 Balance -150 / 260 850 / 850 Physical Exam Narrative: NAD CVS S1S2, RRR, Mur (-) Resp: CTA Abd: soft, NT, BS+ Edema (-) GRAPHIC ARTS TECHNICIAN A&Ox2 Urinary Catheter Management: Aldana: Cath Placed During This Visit: yes, but has since been removed by the nurse Reason for Continuing Indwelling Catheter: Decision to DC Catheter Urinary Catheter Date of Insertion: 12/06/21 Date Urinary Catheter Removed: 12/10/21 Time Urinary Catheter Discontinued: 07:30 Data : 12/09/21 04:53 12/09/21 04:53 Micro: Microbiology 12/06/21 19:25 Blood Culture - Final Blood NO GROWTH AFTER 5 DAYS 12/06/21 19:32 Blood Culture - Final Blood NO GROWTH AFTER 5 DAYS A&P Assessment and plan (1) Sepsis: Status: Acute (2) COVID-19: Status: Acute (3) Respiratory failure: Status: Acute Qualifiers: Chronicity: acute Respiratory failure complication: hypoxia Qualified Code(s): J96.01 - Acute respiratory failure with hypoxia (4) Pneumonia: Status: Acute (5) Acute alteration in mental status: Status: Acute (6) 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 Transfer when bed available Time Spent in Patient Care: 35 min Coding Level of Care Code Acute Crester for g Fwd Diagnoses Sepsis A41.9 COVID-19 U07.1 Respiratory failure J96.01 Chronicity: acute Respiratory failure complication: hypoxia Pneumonia J18.9 Acute alteration in mental status R41.82 BPH with obstruction/lower urinary tract symptoms N40.1; N13.8
--- NOTE | 2021-12-12 10:56 | P.PN_ITS ---
Subjective Subjective: Doing well. No complaint. At baseline MS Vitals/I&O/Wt Last Vital Signs Temp 98.5 F 12/12/21 07:52 Pulse 76 12/12/21 07:52 Resp 16 12/12/21 07:52 BP 167/75 12/12/21 07:52 Pulse Ox 95 12/12/21 07:52 12/11/21 12/12/21 12/12/21 22:59 06:59 14:59 Intake Total 550 / 960 1050 / 1050 Output Total 700 / 700 200 / 200 Balance -150 / 260 850 / 850 Physical Exam Narrative: NAD CVS S1S2, RRR, Mur (-) Resp: CTA Abd: soft, NT, BS+ Edema (-) FINANCIAL ANALYSIS ADVISOR A&Ox2 Urinary Catheter Management: Aldana: Cath Placed During This Visit: yes, but has since been removed by the nurse Reason for Continuing Indwelling Catheter: Decision to DC Catheter Urinary Catheter Date of Insertion: 12/06/21 Date Urinary Catheter Removed: 12/10/21 Time Urinary Catheter Discontinued: 07:30 Data : 12/09/21 04:53 12/09/21 04:53 Micro: Microbiology 12/06/21 19:25 Blood Culture - Final Blood NO GROWTH AFTER 5 DAYS 12/06/21 19:32 Blood Culture - Final Blood NO GROWTH AFTER 5 DAYS A&P Assessment and plan (1) Sepsis: Status: Acute (2) COVID-19: Status: Acute (3) Respiratory failure: Status: Acute Qualifiers: Chronicity: acute Respiratory failure complication: hypoxia Qualified Code(s): J96.01 - Acute respiratory failure with hypoxia (4) Pneumonia: Status: Acute (5) Acute alteration in mental status: Status: Acute (6) Hydronephrosis: Status: Acute Plan Continue current meds PT/OTTransfer to SNF when bed available Attestations Medical Necessity Statement*: Awaiting on acceptance at SNF. Transfer when bed available Time Spent in Patient Care: 35 min Coding Level of Care Code Acute Utility Service Worker for [facility] Fw Diagnoses Sepsis A41.9 COVID-19 U07.1 Respiratory failure J96.01 Chronicity: acute Respiratory failure complication: hypoxia Pneumonia J18.9 Acute alteration in mental status R41.82 Hydronephrosis N13.30
--- NOTE | 2021-12-12 11:13 | PM.DCS ---
Discharge Providers Date of Admission: 12/06/21 21:35 Date of Discharge: December 12, 2021 Attending Provider at Admission: Mee Tao MD Attending Provider at Discharge: Jeremy Roe MD Primary Care Provider: Markus Allen MD Diagnoses at Discharge Discharge Diagnosis (1) Sepsis: Status: Acute (2) COVID-19: Status: Acute (3) Respiratory failure: Status: Acute Qualifiers: Chronicity: acute Respiratory failure complication: hypoxia Qualified Code(s): J96.01 - Acute respiratory failure with hypoxia (4) Pneumonia: Status: Acute (5) Acute alteration in mental status: Status: Acute (6) Hydronephrosis: Status: Acute Reason for Visit Reason for Visit: sob,lethargib Hospital Course Hospital Course Kalin Taylor Jr is a 81 year old male with a past medical history of urolithiasis, Klebsiella sepsis, brought to the emergency room today by his for reported altered mental status.? reported the patient was acting disoriented, was found confused in the living room.? At the time of my assessment patient is alert awake and oriented.? He states he has been febrile over the last few days, has left flank pain which is currently relieved somewhat with morphine.? No hematuria.? Has some dysuria.? Also reports an ongoing cough over the past week.? Has a history of COVID-19 infection in April 2021.? He has a past medical history of pulmonary cryptococcosis for which she was on fluconazole however states this was completed several years ago.? On evaluation today he is noted to be febrile to 101.? Tachycardic 130s, saturating 94% on 4 L/min supplemental O2.? CTA of the chest without PE but shows consolidation.? CT abdomen and pelvis without any acute abdominal events. Pt was admitted to Med Surg. Patient presenting with sepsis as evidenced by fever, leukocytosis to 21, tachycardia 130s and elevated lactate. Suspected source to be urinary tract infection versus pneumonia CT chest with chronic nodular opacities with a past medical history of chronic cryptococcal fungal infection, not currently on fluconazole, follows with ID in [place].? There is interval appearance of lingular pneumonia. Currently no hydronephrosis noted on abdominal CT.? Multiple small left and right renal hypodensities. Empiric antibiotic therapy with piperacillin tazobactam, vancomycin and azithromycin for atypical coverage. Sputum Gram stain and culture were negative Blood culture taken prior to initiation of antibiotics. were negative Noted abdominal hernia, however no signs of strangulation or obstruction. As needed morphine for pain control. Pt returned to his baseline mental status. His WBC improved to 7. He was deconditioned and as his was unable to manage him at home, pt will be transferred to SNF. His VSS were stable Physical Exam Narrative: NAD CVS S1S2, RRR, Mur (-) Resp: CTA Abd: soft, NT, BS+ Edema (-) DENTAL FRONT OFFICE ASSISTANT A&Ox2 Urinary Catheter Management: Aldana: Cath Placed During This Visit: yes, but has since been removed by the nurse Reason for Continuing Indwelling Catheter: Decision to DC Catheter Urinary Catheter Date of Insertion: 12/06/21 Date Urinary Catheter Removed: 12/10/21 Time Urinary Catheter Discontinued: 07:30 Discharge Data Studies Completed and Pending Completed Studies During Hospitalization Category Date Time Status CT abdomen renal stone [CT kidney stone [id number]] Routine Cat Scan 12/08/21 13:[address] head wo con* [id number] Urgent Cat Scan 12/06/21 19:02 Completed CTA chest [CT angio chest w abd pel w con] Urgent Cat Scan 12/06/21 19:02 Completed XR chest 1V portable [id number] Urgent Exams 12/06/21 19:02 Completed Pending at discharge Category Date Time Status SARS Covid-2 Antigen Stat Lab 12/12/21 10:39 Received Vancomycin Trough Timed Lab 12/12/21 23:00 Ordered Radiology Impressions Chest X-Ray 12/06/21 19:02 IMPRESSION: Patchy bilateral suspected underlying nodular densities, similar to prior exam, a chest CT could further evaluate these as clinically indicated, previous chest CT from 06/13/2020 did demonstrate diffuse nodular densities as well, somewhat similar to this exam. Chest/Abdomen/Pelvis CT 12/06/21 19:02 IMPRESSION: 1. Slight interval progression of multiple nodular opacities bilaterally 1 of which is cavitary in the posterior segment right upper lobe consistent with history of chronic cryptococcal fungal infection. 2. Interval appearance of moderate inferior segment lingular pneumonia. 3. No pulmonary embolus or aortic dissection. IMPRESSION: 1. Slight interval increased size of adrenal glands bilaterally, left greater than right, most consistent with adrenal hyperplasia. 2. Aldana balloon catheter in the urinary bladder. 3. Large 10.1 x 6.3 x 5.0 cm right inguinal hernia containing prominent loop of small bowel without obvious ischemia or obstruction. Head CT 12/06/21 19:02 IMPRESSION: No acute intracranial abnormality. Abdomen/Pelvis CT 12/08/21 13:59 IMPRESSION: 1. No acute findings. No renal stones. 2. Right inguinal hernia containing loops of small bowel. No bowel obstruction. 3. 3 cm infrarenal abdominal aortic aneurysm. Laboratory Results WBC 7.1 10^3/uL (4.0-10.0) 12/09/21 04:53 RBC 4.07 10^6/uL (4.1-5.3) L 12/09/21 04:53 Hgb 11.5 g/dL (11.7-16.6) L 12/09/21 04:53 Hct 36.1 % (42.0-52.0) L 12/09/21 04:53 MCV 88.7 fl (80-94) 12/09/21 04:53 MCH 28.3 pg (28.0-34.0) 12/09/21 04:53 MCHC 31.9 g/dL (30.0-36.0) 12/09/21 04:53 RDW 13.6 % (12.1-15.1) 12/09/21 04:53 Plt Count 146 10^3/cmm (130-400) 12/09/21 04:53 MPV 10.7 fL (7.4-10.4) H 12/09/21 04:53 Neut % (Auto) 73.4 % 12/09/21 04:53 Lymph % (Auto) 14.5 % 12/09/21 04:53 [place] % (Auto) 8.2 % 12/09/21 04:53 Eos % (Auto) 2.8 % 12/09/21 04:53 Baso % (Auto) 0.7 % 12/09/21 04:53 Neut # (Auto) 5.20 10^3/uL (1.8-7.7) 12/09/21 04:53 Lymph # (Auto) 1.0 10^3/uL (0.8-4.8) 12/09/21 04:53 [place] # (Auto) 0.6 10^3/uL (0.2-0.9) 12/09/21 04:53 Eos # (Auto) 0.2 10^3/uL (0.0-0.8) 12/09/21 04:53 Baso # (Auto) 0.1 10^3/uL (0.0-0.1) 12/09/21 04:53 Nucleated RBC % (auto) 0 % 12/09/21 04:53 Nucleated RBCs # 0.0 /100WBC 12/09/21 04:53 PT 14.40 SECONDS (12.1-14.9) 12/06/21 19:00 INR 1.09 (0.8-1.2) 12/06/21 19:00 D-Dimer 2.87 ug/mIFEU (0-0.59) H 12/06/21 19:00 Specimen Type Arterial 12/06/21 19:33 Sample Site Radial, left 12/06/21 19:33 ABG pH 7.45 (7.35-7.45) 12/06/21 19:33 ABG pCO2 28.4 mmHg (35-45) L 12/06/21 19:33 ABG pO2 63.2 mmHg (80.0-100.0) L 12/06/21 19:33 ABG HCO3 19.9 mmol/L (22-26) L 12/06/21 19:33 ABG Base Excess -2.8 mmol/L (-2.0-2.0) L 12/06/21 19:33 Jhonny Test Pos 12/06/21 19:33 Hematocrit 43.3 % (42-52) 12/06/21 19:33 Hgb O2 Saturation 93.1 % (95-100) L 12/06/21 19:33 Carboxyhemoglobin 1.2 %THgb (0.4-20.1) 12/06/21 19:33 Methemoglobin 0.7 % (0.4-1.5) 12/06/21 19:33 Total Hemoglobin 14.1 g/dL (14-18) 12/06/21 19:33 O2 Delivery Device Nc 12/06/21 19:33 O2 Liters/Min 2.0 % 12/06/21 19:33 Cutting Tool Sharpener ID Buttr 12/06/21 19:33 Sodium 135 mmol/L (136-145) L 12/09/21 04:53 Potassium 4.1 mmol/L (3.5-5.1) 12/09/21 04:53 Chloride 104 mmol/L (98-107) 12/09/21 04:53 Carbon Dioxide 21 mmol/L (22-29) L 12/09/21 04:53 Anion Gap 14.1 (5-19) 12/09/21 04:53 BUN 43 mg/dL (8-23) H 12/09/21 04:53 Creatinine 1.9 mg/dL (0.7-1.2) H 12/09/21 04:53 GFR Calculation Not Reportable 12/09/21 04:53 Glucose 119 mg/dL (65-115) H 12/09/21 04:53 Calculated Osmolality 292 mOsm/kg (285-295) 12/09/21 04:53 Lactic Acid 1.1 mmol/L (0.5-2.2) 12/07/21 05:25 Lactic Acid (Sepsis) 1.5 mmol/L (0.5-2.2) 12/06/21 22:25 Calcium 8.7 mg/dL (8.5-10.5) 12/09/21 04:53 Magnesium 1.5 mg/dL (1.7-2.3) L 12/06/21 19:00 Total Bilirubin 0.4 mg/dL (0.15-1.2) 12/09/21 04:53 AST 13 U/L (0-40) 12/09/21 04:53 ALT 16 U/L (0-41) 12/09/21 04:53 Alkaline Phosphatase 95 IU/L (40-130) 12/09/21 04:53 Troponin T Baseline 40 ng/L (0-15) H 12/06/21 19:00 Troponin T 120 Minute 43.82 ng/L (0-15) H 12/06/21 21:04 Delta Troponin T 3.82 ABS# (0-10) 12/06/21 21:04 Troponin T Hi Sens 6Hr 53.08 ng/L (0-15) H 12/07/21 01:00 Troponin T Hi Sens 6Hr Delta 13.08 ng/L (0-12) H* 12/07/21 01:00 NT-Pro-B Natriuret Pep 5175 pg/mL (0-450) H 12/06/21 19:00 Total Protein 6.7 g/dL (6.6-8.7) 12/09/21 04:53 Albumin 3.1 g/dL (3.5-5.2) L 12/09/21 04:53 Globulin 3.6 g/dL (1.3-4.6) 12/09/21 04:53 TSH 1.49 uIU/mL (0.27-4.20) 12/07/21 05:25 Urine Color Yellow (Yellow) 12/06/21 19:24 Urine Appearance Clear (CLEAR) 12/06/21 19:24 Urine pH 5 (5-7) 12/06/21 19:24 Ur Specific [place] 1.020 (1.005-1.030) 12/06/21 19:24 Urine Protein 1+ (Negative) H 12/06/21 19:24 Urine Glucose (UA) Trace (Normal) H 12/06/21 19:24 Urine Ketones Negative (Negative) 12/06/21 19:24 Urine Blood 2+ (Negative) H 12/06/21 19:24 Urine Nitrate Negative (Negative) 12/06/21 19:24 Urine Bilirubin Neg (Negative) 12/06/21 19:24 Urine Urobilinogen Norm mg/dL (Negative) 12/06/21 19:24 Ur Leukocyte Esterase Negative (Negative) 12/06/21 19:24 Urine RBC 0-4 /hpf (0-2) H 12/06/21 19:24 Urine WBC 0-4 /hpf (0-5) H 12/06/21 19:24 Ur Squamous Epith Cells 0-4 /hpf (0-5) H 12/06/21 19:24 Ur Transition Epith Cell 5-10 /hpf 12/06/21 19:24 Amorphous Sediment 1+ /hpf 12/06/21 19:24 Urine Bacteria Trace /hpf (NONE) 12/06/21 19:24 Hyaline Casts 0-4 /lpf H 12/06/21 19:24 Vancomycin Trough 16.2 ug/mL (10-15) H 12/09/21 22:19 Vitals Last Vital Signs Temp 98.5 F 12/12/21 07:52 Pulse 76 12/12/21 07:52 Resp 16 12/12/21 07:52 BP 167/75 12/12/21 07:52 Pulse Ox 95 12/12/21 07:52 Discharge Plan Discharge Patient Disposition: Xfer SNF Condition: Fair Prescriptions: New azithromycin 250 mg Tablet 500 mg PO DAILY 2 Days 0RF amlodipine 10 mg Tablet 10 mg PO DAILY Qty: 30 0RF acetaminophen 325 mg Tablet 650 mg PO Q6H PRN (Reason: Mild/Mod Pain Or Temp >/= 101) Qty: 30 0RF Continued escitalopram oxalate [Lexapro] 20 mg tablet 20 mg PO DAILY 0RF Discharge Orders: Discharge Order (Routine); Ordered 12/12/21 Ordered By: Jeremy Roe Referrals: Walter Jensen MD [Physician] - Markus Allen MD [Primary Care Provider] - 12/17/21 9:00 am Discharge Diet: Advance as tolerated Discharge Activity: As per PT/OT instructions Patient Instructions: Viral Pneumonia (DC), Enlarged Prostate (BPH) (DC), Sepsis (DC), Chronic Respiratory Failure (DC), Opioid Safety Discharge Attestations Time Spent in Discharge Care*: greater than 30 min Quality Metrics Clinical Quality Measures [ No reported AMI, CVA or VTE this stay] Coding Level of Care Code Acute Chg FW DC note Diagnoses Sepsis A41.9 COVID-19 U07.1 Respiratory failure J96.01 Chronicity: acute Respiratory failure complication: hypoxia Pneumonia J18.9 Acute alteration in mental status R41.82 Hydronephrosis N13.30
[2021-12-12 11:21] LABS: SARS Covid-2 Antigen Negative (Negative)
[2021-12-12 12:00] VITALS: BP 150/68; PULSE 74; RESP 17; TEMP 36.9; O2SAT 94
--- NOTE | 2021-12-12 12:04 | PC.NURSE ---
Report called to Elvie EDWARDS at [facility]. CM notified to arrange transportation.
[2021-12-12 14:45] VITALS: BP 150/68; PULSE 74; RESP 17; TEMP 36.9; O2SAT 94
== END 2021-12-12 14:00 | disposition skilled nursing facility (03) | DRG 871 ==
LOC: ER 21:33 → MEDSURG 21:43
PROVIDERS: Admitting Provider Student in an Organized Health Care Education/Training Program; Emergency Provider Emergency Medicine; PCP Family Medicine; Visit Provider Internal Medicine
DX: A41.9 Sepsis, unspecified organism (principal); J96.01 Acute respiratory failure with hypoxia; J18.9 Pneumonia, unspecified organism; N13.30 Unspecified hydronephrosis; N13.8 Other obstructive and reflux uropathy; N17.9 Acute kidney failure, unspecified; R41.82 Altered mental status, unspecified; N40.1 Benign prostatic hyperplasia with lower urinary tract symptoms; N39.498 Other specified urinary incontinence; Z87.440 Personal history of urinary (tract) infections; Z86.16 Personal history of COVID-19; I10 Essential (primary) hypertension
CPT/HCPCS: 36415; 36600; 51702; 70450; 71045; 71275; 74176; 74177; 80053; 80202; 81001; 82805; 83605; 83735; 83880; 84443; 84484; 85025; 85378; 85610; 87040; 87070; 87086; 87205; 87426; 93005; 94640; 94664; 96365; 96372; 96375; 97110; 97116; 97161; 97530; 99285; J1650; J2270; J2405; J2543; J3370; J3490; J7030; J7799; Q0144; Q9967

== ENCOUNTER → 2022-02-04 12:31 | Outpatient (BNVA) | payer MEDICARE, OTHER, SELFPAY | PROVIDERS: PCP Family Medicine; Visit Provider Family Medicine | DX: L98.9 Disorder of the skin and subcutaneous tissue, unspecified (principal); R60.9 Edema, unspecified | CPT/HCPCS: 80053; 83880; 84443; 85025 ==

== ENCOUNTER → 2022-02-12 15:07 | Outpatient (BNVA) | payer MEDICARE, OTHER, SELFPAY | PROVIDERS: PCP Family Medicine; Visit Provider Family Medicine | DX: L98.9 Disorder of the skin and subcutaneous tissue, unspecified (principal) | CPT/HCPCS: 88304 ==

== ENCOUNTER 2022-03-11 09:40 | Outpatient (CLI) | payer MEDICARE, OTHER, SELFPAY ==
--- NOTE | 2022-03-11 09:52 | USCV_ITS ---
Kalin Taylor Age: 81 Gender: M : 1940 Exam Date: 03/11/2022 10:03 Ordering Phys: Markus Allen MD Technologist: Tana Lane Exam Location: [facility] [place] Indication: CHRONIC HEART FAILURE, EDEMA BP: 122 / 78 HR: 73 Rhythm: Sinus Technical Quality: Adequate MEASUREMENTS (Male / Female) Normal Values 2D ECHO LV Diastolic Diameter PLAX 5.0 cm 4.2 - 5.9 / 3.9 - 5.3 cm LV Systolic Diameter PLAX 3.1 cm IVS Diastolic Thickness 1.6 cm 0.6 - 1.0 / 0.6 - 0.9 cm IVS Systolic Thickness 2.0 cm LVPW Diastolic Thickness 1.6 cm 0.6 - 1.0 / 0.6 - 0.9 cm LVPW Systolic Thickness 2.1 cm LVOT Diameter 2.0 cm LV Ejection Fraction 2D Teich 68.2 % LV Ejection Fraction MOD 2C 62.1 % LV Ejection Fraction 2C AL 63.1 % LA Diameter 2.7 cm LA Width 3.4 cm LA Height 4.6 cm RA Width 2.8 cm RA Height 5.0 cm Aorta at Sinotubular Diameter 2.7 cm IVC Diameter 1.7 cm M-MODE Aortic Annulus Diameter 3.5 cm LA Ao Ratio MM 0.5 MV E Point Septal Separation 0.9 cm DOPPLER AV Peak Velocity 152.0 cm/s LVOT Peak Velocity 146.0 cm/s AV Area Cont Eq vti 3.3 cm squared AV Area Cont Eq pk 3.1 cm squared MV Peak Velocity 136.0 cm/s MV Area PHT 3.4 cm squared Mitral E to A Ratio 0.7 MV E' Velocity 50.5 cm/s Mitral E to MV E' Ratio 9.9 Mitral E to LV E' Lateral Ratio 10.2 Mitral E to LV E' Septal Ratio 9.6 TR Peak Velocity 189.4 cm/s TR Peak Gradient 14.3 mmHg TR Mean Velocity 155.7 cm/s TR Mean Gradient 10.6 mmHg TR Velocity Time Integral 57.1 cm TV Peak E Velocity 45.0 cm/s Right Atrial Pressure 3.0 mmHg Pulmonary Artery Systolic Pressu 17.3 mmHg FINDINGS Left Ventricle Normal left ventricular size and systolic function, EF 63 %. No regional wall motion abnormalities. Grade I/IV diastolic dysfunction (abnormal relaxation filling pattern), normal to mildly elevated filling pressures. Right Ventricle The right ventricle is normal in size and function. Right Atrium The right atrium is normal in size. Left Atrium The left atrium is normal in size. Mitral Valve Mild mitral annular calcification. Thickened mitral valve. Trace mitral valve regurgitation. Aortic Valve Thickened aortic valve. Mild aortic valve regurgitation. Tricuspid Valve Tricuspid valve not well visualized. Pulmonic Valve Pulmonic valve not well visualized. Pericardium Normal pericardium without effusion. Aorta Normal ascending aorta dimension. IVC Normal IVC dimension with >50% respiratory change of the inferior vena cava. CONCLUSIONS Normal left ventricular size and systolic function, EF 63 %. No regional wall motion abnormalities. Grade I/IV diastolic dysfunction (abnormal relaxation filling pattern), normal to mildly elevated filling pressures. Mild mitral annular calcification. Thickened mitral valve. Trace mitral valve regurgitation. Thickened aortic valve. Mild aortic valve regurgitation. There is no pericardial effusion. There are no intracardiac masses. Compared to the study from 09/20/2019, there may be a significant change Dr Braydon Marcano MD FACC (Electronically Signed) Final Date: 12 March 2022 00:28 S
== END 2022-03-11 09:41 | disposition home or self-care (01) ==
LOC: RAD 09:41
PROVIDERS: PCP Family Medicine; Visit Provider Family Medicine
DX: I50.9 Heart failure, unspecified (principal); R60.9 Edema, unspecified; I08.0 Rheumatic disorders of both mitral and aortic valves
CPT/HCPCS: 93306

== ENCOUNTER 2022-08-26 19:22 | Emergency (ER) | payer MEDICARE, OTHER, SELFPAY ==
[2022-08-26 19:46] VITALS: BMI 28.0
[2022-08-26 19:51] VITALS: BP 189/89; PULSE 114; RESP 20; TEMP 36.9; O2SAT 95
--- NOTE | 2022-08-26 19:51 | ECG_ITS ---
[facility] Test Date: 2022-08-26 Pat Name: Kalin Taylor Department: Room: Gender: Male Control Room Agent: : 1940 Requested By: Kaleb Tinsley Order Number: [id number] Sheila MD: Anel Douglas M.D. Measurements Intervals [place] Rate: 112 P: 70 [place]: 184 QRS: 264 QRSD: 148 T: 49 QT: 284 QTc: 389 Interpretive Statements SINUS TACHYCARDIA RIGHT AXIS DEVIATION [QRS AXIS > 100] RIGHT BUNDLE BRANCH BLOCK [120+ ms QRS DURATION, UPRIGHT V1, 40+ ms S IN I/aVL/V4/V5/V6] INFERIOR MYOCARDIAL INFARCTION , OF INDETERMINATE AGE [40+ ms Q WAVE AND/OR ST/T ABNORMALITY IN II/aVF] Compared to ECG 12/07/2021 00:02:27 Right-axis deviation now present Myocardial infarct finding still present Electronically Signed On 08-27-2022 19:04:03 DRY DIP WORKER by Anel Douglas M.D. [id number]
--- NOTE | 2022-08-26 21:32 | XRR_ITS ---
PROCEDURE INFORMATION: Exam: XR Chest Exam date and time: 08/26/2022 9:57 PM Age: 82 years old Clinical indication: Shortness of breath; Patient HX: Increase heart rate; Additional info: Sog TECHNIQUE: Imaging protocol: Radiologic exam of the chest. Views: 1 view. COMPARISON: CR XR chest 1V portable [id number] 12/06/2021 7:11 PM FINDINGS: Lungs: Suspected multiple nodular airspace opacities bilaterally, somewhat similar to prior exam, chest CT could better evaluate these. Pleural spaces: Unremarkable. No pleural effusion. No pneumothorax. Heart/Mediastinum: Unremarkable. No cardiomegaly. Bones/joints: Unremarkable. XR/XR chest 1V portable [id number] IMPRESSION: Suspected multiple nodular airspace opacities bilaterally, somewhat similar to prior exam, chest CT could better evaluate these.
--- NOTE | 2022-08-26 21:36 | ECG_ITS ---
[facility] Test Date: 2022-08-26 Pat Name: Kalin Taylor Department: Room: Gender: Male Policy Analyst: : 1940 Requested By: Kaleb Tinsley Order Number: [id number] Sheila MD: Anel Douglas M.D. Measurements Intervals [place] Rate: 102 P: 73 [place]: 179 QRS: -86 QRSD: 150 T: 62 QT: 336 QTc: 439 Interpretive Statements SINUS TACHYCARDIA RIGHT BUNDLE BRANCH BLOCK LEFT ANTERIOR FASCICULAR BLOCK Compared to ECG 08/26/2022 19:50:49 Left anterior fascicular block now present Right-axis deviation no longer present Myocardial infarct finding no longer present Electronically Signed On 08-27-2022 19:03:16 MILK TANKER DRIVER by Anel Douglas M.D. [id number]
--- NOTE | 2022-08-26 21:37 | W.ED.GENADLT ---
HPI - General Adult General: Chief complaint: General Medical Stated complaint: Chest Infection Time Seen by Provider: 08/26/22 21:23 Source: patient Mode of arrival: ambulatory Limitations: no limitations History of Present Illness: 82-year-old male states that over the last 5 days has been having cough congestion low-grade fevers body aches. He denies any chest pain states has been having some increasing shortness of breath no known sick contacts no vomiting no diarrhea he is in no distress here. Associated symptoms: Reports dyspnea; Deny chest pain, headache(s), nausea, rash or vomiting Review of Systems Const: Denies: fever(s), chills, body aches or change in appetite Eyes: Denies: blurry vision or eye discomfort ENMT: Denies: throat pain or dental pain Card: Denies: chest pain Resp: Reports: dyspnea and non-productive cough GI: Denies: abdominal pain, nausea, vomiting or diarrhea : Denies: dysuria Musc: Denies: neck pain or back pain Skin/Breast: Denies: rash Neuro: Denies: headache(s) Psych: Denies: depression Nigel/Lymph: Denies: easy bruising All/Imm: Denies: urticaria PFSH ED PFSH: Medical History (Updated 08/26/22 @ 23:52 by Kaleb Tinsley MD) Bladder calculus BPH with obstruction/lower urinary tract symptoms Hydronephrosis Recurrent 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 Recurrent UTI Staghorn renal calculus Surgical History History of removal of eye Family History Mother , AT AGE 91 LYMPHOMA Cancer Father , AT AGE 72 STOMACH CANCER Cancer Social History Smoking and tobacco status: never smoked Alcohol intake: never Adopted: No Caregiver/support person: No Current occupational status: retired Physical Exam Const: COMMON NORMALS: no acute distress, patient oriented x3 and healthy appearing HENMT: COMMON NORMALS: normocephalic and atraumatic HEAD & SCALP: normocephalic and atraumatic Eye: COMMON NORMALS: Equal, round and reactive pupils present and EOMs intact bilaterally PUPIL: Yes Equal, round and reactive pupils present Neck/C-Spine: COMMON NORMALS: full ROM and supple Chest: COMMONS NORMALS: normal inspection of the chest and normal palpation of entire chest wall Resp: COMMON NORMALS: normal respiratory effort, No retractions, No use of accessory muscles and clear to auscultation bilaterally AUSCULTATION: clear to auscultation bilaterally and wheezes Cardio: COMMON NORMALS: regular rate, regular rhythm and No murmurs present (Cardio) RATE: regular rate RHYTHM: regular rhythm GI: COMMON NORMALS: Normal to inspection, nondistended, normoactive bowel sounds present, Soft to palpation, non-tender and no masses PALPATION: Yes Soft to palpation Extremity: COMMON NORMALS: normal to inspection and full ROM Neuro: COMMON NORMALS: patient oriented x3, moves all extremities and no focal motor deficits Psych: COMMON NORMALS: mental status grossly normal, Normal thought process present and cooperative THOUGHT PROCESS: Normal thought process present Skin: COMMON NORMALS: no rashes or lesions noted and no wounds GENERAL SKIN EXAM: no rashes or lesions noted Course Vital Signs: Vital signs: Vital Signs Temperature 98.5 F 08/26/22 19:51 Pulse Rate 91 08/26/22 22:26 Respiratory Rate 20 H 08/26/22 19:51 Blood Pressure 189/89 08/26/22 19:51 Pulse Oximetry 92 08/26/22 22:26 Oxygen Delivery Me thod 08/26/22 22:26 [facility] - General Adult Medical Decision Making Patient presents here with cough congestion he did test positive for COVID his CT shows no acute abnormalities he is in no distress here his pulse ox is normal we will place him on albuterol along with steroids he is stable for discharge. Patient has been on 2 L oxygen here we will set him on on home oxygen Lab Data 08/26/22 21:52 08/26/22 21:52 Radiology Impressions Chest X-Ray 08/26/22 21:32 IMPRESSION: Suspected multiple nodular airspace opacities bilaterally, somewhat similar to prior exam, chest CT could better evaluate these. Chest CTA 08/26/22 22:44 IMPRESSION: 1. Negative for pulmonary embolus. 2. Cardiomegaly. 3. Coronary artery atherosclerotic calcifications. 4. Scattered prominent subcentimeter mediastinal lymph nodes, nonspecific. 5. Emphysematous changes. 6. Multiple bilateral pulmonary nodules again seen, somewhat similar in size and number compared to prior exam with a dominant right upper lobe nodule measuring 2.4 cm and a dominant left lower lobe 2.2 cm nodule, similar to prior exam. 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 Laboratory Results WBC 4.7 10^3/uL (4.0-10.0) 08/26/22 21:52 RBC 5.33 10^6/uL (4.1-5.3) H 08/26/22 21:52 Hgb 15.1 g/dL (11.7-16.6) 08/26/22 21:52 Hct 47.0 % (42.0-52.0) 08/26/22 21:52 MCV 88.2 fl (80-94) 08/26/22 21:52 MCH 28.3 pg (28.0-34.0) 08/26/22 21:52 MCHC 32.1 g/dL (30.0-36.0) 08/26/22 21:52 RDW 12.9 % (12.1-15.1) 08/26/22 21:52 Plt Count 162 10^3/cmm (130-400) 08/26/22 21:52 MPV 10.2 fL (7.4-10.4) 08/26/22 21:52 Neut % (Auto) 59.3 % 08/26/22 21:52 Lymph % (Auto) 22.7 % 08/26/22 21:52 [place] % (Auto) 17.6 % 08/26/22 21:52 Eos % (Auto) 0.0 % 08/26/22 21:52 Baso % (Auto) 0.4 % 08/26/22 21:52 Neut # (Auto) 2.80 10^3/uL (1.8-7.7) 08/26/22 21:52 Lymph # (Auto) 1.1 10^3/uL (0.8-4.8) 08/26/22 21:52 [place] # (Auto) 0.8 10^3/uL (0.2-0.9) 08/26/22 21:52 Eos # (Auto) 0.0 10^3/uL (0.0-0.8) 08/26/22 21:52 Baso # (Auto) 0.0 10^3/uL (0.0-0.1) 08/26/22 21:52 Nucleated RBC % (auto) 0 % 08/26/22 21:52 Nucleated RBCs # 0.0 /100WBC 08/26/22 21:52 Sodium 137 mmol/L (136-145) 08/26/22 21:52 Potassium 4.2 mmol/L (3.5-5.1) 08/26/22 21:52 Chloride 101 mmol/L (98-107) 08/26/22 21:52 Carbon Dioxide 24 mmol/L (22-29) 08/26/22 21:52 Anion Gap 16.2 (5-19) 08/26/22 21:52 BUN 25 mg/dL (8-23) H 08/26/22 21:52 Creatinine 1.6 mg/dL (0.7-1.2) H 08/26/22 21:52 GFR Calculation Not Reportable 08/26/22 21:52 Glucose 106 mg/dL (65-115) 08/26/22 21:52 Calculated Osmolality 289 mOsm/kg (285-295) 08/26/22 21:52 Calcium 9.4 mg/dL (8.5-10.5) 08/26/22 21:52 Total Bilirubin 0.5 mg/dL (0.15-1.2) 08/26/22 21:52 AST 20 U/L (0-40) 08/26/22 21:52 ALT 23 U/L (0-41) 08/26/22 21:52 Alkaline Phosphatase 131 U/L (40-130) H 08/26/22 21:52 Troponin T Baseline 84 ng/L (0-15) H 08/26/22 21:52 NT-Pro-B Natriuret Pep 1013 pg/mL (0-450) H 08/26/22 21:52 Total Protein 7.9 g/dL (6.6-8.7) 08/26/22 21:52 Albumin 4.2 g/dL (3.5-5.2) 08/26/22 21:52 Globulin 3.7 g/dL (1.3-4.6) 08/26/22 21:52 Influenza Type A Ag negative (Negative) 08/26/22 21:52 Influenza Type B Ag negative (Negative) 08/26/22 21:52 SARS-CoV-2 Ag (Rapid) positive (Negative) 08/26/22 21:52 Discharge Plan Discharge Patient Disposition: Home Clinical Impression: COVID-19 Condition: Stable Prescriptions: New albuterol sulfate 2.5 mg /3 mL (0.083 %) solution for nebulization 2.5 mg INHALATION Q4H PRN (Reason: shortness of breath or wheezing) Qty: 90 0RF prednisone 50 mg tablet 50 mg PO DAILY Qty: 5 0RF No Action escitalopram oxalate [Lexapro] 20 mg tablet 20 mg PO DAILY acetaminophen 325 mg Tablet 650 mg PO Q6H PRN (Reason: Mild/Mod Pain Or Temp >/= 101) Qty: 30 0RF Discharge Orders: Discharge ED (Routine); Ordered 08/26/22 Ordered By: Kaleb Tinsley Other Ambulatory Orders: DME: Oxygen (Order) Location: None Selected Ordered By: Kaleb Tinsley Referrals: Markus Allen MD [Primary Care Provider] - 1-3 days Discharge Diet: Advance as tolerated Discharge Activity: Resume usual activity Coding Level of Care Code ED Team Cdl Driver for Chg Fwd Exam Comprehensive
[2022-08-26 22:04] LABS: Basophils % 0.4 %; Hemoglobin 15.1 g/dL (11.7-16.6); Lymphocytes # 1.1 10^3/uL (0.8-4.8); Lymphocytes % 22.7 %; Mean Corpuscular HGB Conc 32.1 g/dL (30.0-36.0); Mean Corpuscular Hemoglobin 28.3 pg (28.0-34.0); Mean Corpuscular Volume 88.2 fl (80-94); Mean Platelet Volume 10.2 fL (7.4-10.4); Monocytes # 0.8 10^3/uL (0.2-0.9); Monocytes % 17.6 %; Neutrophils % 59.3 %; Nucleated Red Blood Cells % 0 %; Platelet Count 162 10^3/cmm (130-400); Red Blood Count 5.33 10^6/uL (4.1-5.3); Red Cell Distribution Width 12.9 % (12.1-15.1); White Blood Count 4.7 10^3/uL (4.0-10.0)
[2022-08-26 22:20] LABS: Influenza A by IFA negative (Negative); Influenza B by IFA negative (Negative); SARS Covid-2 Antigen positive (Negative)
[2022-08-26 22:23] LABS: Troponin(5th) Baseline 84 ng/L (0-15)
[2022-08-26] MEDS: albuterol 2.5 mg/3 mL Neb INHALATION (22:23)
[2022-08-26] MEDS: ipratropium-albuterol 3 mL Neb INHALATION (22:24)
[2022-08-26 22:26] VITALS: PULSE 91; O2SAT 92
[2022-08-26 22:33] LABS: Alanine Aminotransferase 23 U/L (0-41); Albumin Level 4.2 g/dL (3.5-5.2); Alkaline Phosphatase 131 U/L (40-130); Anion Gap 16.2 (5-19); Aspartate Amino Transferase 20 U/L (0-40); Blood Urea Nitrogen 25 mg/dL (8-23); Calcium 9.4 mg/dL (8.5-10.5); Carbon Dioxide 24 mmol/L (22-29); Chloride 101 mmol/L (98-107); Globulin 3.7 g/dL (1.3-4.6); Glucose 106 mg/dL (65-115); NT Pro B Type Natriuretic Pept 1013 pg/mL (0-450); Osmolality Calculated 289 mOsm/kg (285-295); Potassium 4.2 mmol/L (3.5-5.1); Sodium 137 mmol/L (136-145); Total Bilirubin 0.5 mg/dL (0.15-1.2); Total Protein 7.9 g/dL (6.6-8.7)
--- NOTE | 2022-08-26 22:44 | CTR_ITS ---
PROCEDURE INFORMATION: Exam: CTA Chest With Contrast Exam date and time: 08/26/2022 11:16 PM Age: 82 years old Clinical indication: Shortness of breath; Patient HX: SOB with elevated trop. Covid + TECHNIQUE: Imaging protocol: Computed tomographic angiography of the chest with contrast. 3D rendering (Not supervised by radiologist): MIP and/or 3D reconstructed images were created by the technologist. Radiation optimization: All CT scans at this facility use at least one of these dose optimization techniques: automated exposure control; mA and/or kV adjustment per patient size (includes targeted exams where dose is matched to clinical indication); or iterative reconstruction. Contrast material: OMNI 350; Contrast volume: 63 ml; Contrast route: INTRAVENOUS (IV); COMPARISON: CT angio chest w abd pel w con 12/06/2021 8:16 PM RADIATION DOSE METRICS: Total DLP (mGy-cm): 426.2 FINDINGS: Pulmonary arteries: Normal. No pulmonary emboli. Aorta: Unremarkable. No aortic aneurysm. No aortic dissection. Lungs: Emphysematous changes. Multiple bilateral pulmonary nodules again seen, somewhat similar in size and number compared to prior exam with a dominant right upper lobe nodule measuring 2.4 cm and a dominant left lower lobe 2.2 cm nodule, similar to prior exam. Pleural spaces: Unremarkable. No pneumothorax. No pleural effusion. Heart: Cardiomegaly. Coronary artery atherosclerotic calcifications. Lymph nodes: Scattered prominent subcentimeter mediastinal lymph nodes, nonspecific. Bones/joints: Unremarkable. No acute fracture. Soft tissues: Unremarkable. CT/CT angio chest PE protcl [id number] IMPRESSION: 1. Negative for pulmonary embolus. 2. Cardiomegaly. 3. Coronary artery atherosclerotic calcifications. 4. Scattered prominent subcentimeter mediastinal lymph nodes, nonspecific. 5. Emphysematous changes. 6. Multiple bilateral pulmonary nodules again seen, somewhat similar in size and number compared to prior exam with a dominant right upper lobe nodule measuring 2.4 cm and a dominant left lower lobe 2.2 cm nodule, similar to prior exam. 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
[2022-08-26] MEDS: iohexol 350 mg/mL 500 mL Btl (per mL) IV (23:31)
[2022-08-26] MEDS: labetalol 5 mg/mL SDV 20mL 10 MG IVP (23:34)
--- NOTE | 2022-08-27 00:08 | ECG_ITS ---
[facility] Test Date: 2022-08-27 Pat Name: Kalin Taylor Department: Room: Gender: Male [employer] Member: : 1940 Requested By: Kaleb Tinsley Order Number: [id number] Sheila MD: Anel Douglas M.D. Measurements Intervals [place] Rate: 102 P: 71 MA: 203 QRS: -84 QRSD: 150 T: 58 QT: 342 QTc: 447 Interpretive Statements SINUS TACHYCARDIA LEFT AXIS DEVIATION [QRS AXIS < -30] RIGHT BUNDLE BRANCH BLOCK [120+ ms QRS DURATION, UPRIGHT V1, 40+ ms S IN I/aVL/V4/V5/V6] Compared to ECG 08/26/2022 21:52:02 Left-axis deviation now present Left anterior fascicular block no longer present Electronically Signed On 08-27-2022 19:16:53 [employer] by Anel Douglas M.D. [email or web address] center[email or web address].[employer]/store/OM/[id number]
[2022-08-27 01:15] VITALS: O2SAT 88; O2SAT 94
[2022-08-27 02:00] VITALS: BP 160/71; PULSE 94; RESP 17; O2SAT 92
[2022-08-27 03:23] VITALS: BP 150/73; PULSE 110; RESP 19; O2SAT 92
== END 2022-08-27 03:30 | disposition home or self-care (01) ==
PROVIDERS: Emergency Provider Emergency Medicine; PCP Family Medicine
DX: U09.9 Post COVID-19 condition, unspecified (principal)
CPT/HCPCS: 71045; 71275; 80053; 83880; 84484; 85025; 87426; 87804; 93005; 94640; 96374; 96375; 99285; J2930; J3490; J7613; Q9967

== ENCOUNTER 2023-02-26 11:11 | Emergency (ER) | payer MEDICARE, OTHER, SELFPAY ==
[2023-02-26 11:24] VITALS: PULSE 70; RESP 16; TEMP 36.9; O2SAT 97
--- NOTE | 2023-02-26 11:40 | CTR_ITS ---
PROCEDURE INFORMATION: Exam: CT Abdomen And Pelvis With Contrast Exam date and time: 02/26/2023 12:27 PM Age: 82 years old Clinical indication: Abdominal pain; Localized; Right lower quadrant (rlq); Patient HX: HX of R inguinal hernia; Additional info: Abd pain TECHNIQUE: Imaging protocol: Computed tomography of the abdomen and pelvis with contrast. Radiation optimization: All CT scans at this facility use at least one of these dose optimization techniques: automated exposure control; mA and/or kV adjustment per patient size (includes targeted exams where dose is matched to clinical indication); or iterative reconstruction. Contrast material: OMNI 350; Contrast volume: 100 ml; Contrast route: INTRAVENOUS (IV); REPORTING DATA: Count of CT and Cardiac NM exams in prior 12 months: This patient has received [address] and 0 known cardiac nuclear medicine studies in the 12 months prior to the current study. COMPARISON: CT kidney stone [id number] 12/08/2021 4:09 PM RADIATION DOSE METRICS: Total DLP (mGy-cm): 652.17 FINDINGS: Lungs: Unchanged right lower lobe nodules, the largest with central calcification measuring 1.6 cm. No new nodule seen. Tiny calcified granuloma noted in the left lower lobe. No consolidation. Heart: Normal heart size. Coronary atherosclerotic calcifications seen. No pericardial effusion. Liver: Normal. No mass. Gallbladder and bile ducts: Normal. No calcified stones. No ductal dilation. Pancreas: Normal. No ductal dilation. Spleen: Mildly enlarged spleen measuring 15.8 cm in length. Adrenal glands: Normal. No mass. Kidneys and ureters: Interval increase in size of incompletely characterized hypodense lesion in the posterior left mid kidney measuring 1.5 cm. Additional subcentimeter foci of decreased attenuation in the right kidney are too small to characterize. No hydronephrosis or nephrolithiasis. Bilateral renal vascular calcifications seen. Stomach and bowel: There is diverticulosis without evidence of diverticulitis. Appendix: No evidence of appendicitis. Intraperitoneal space: Unremarkable. No free air. No significant fluid collection. Vasculature: Mild diffuse atherosclerotic disease is present. Lymph nodes: Unremarkable. No enlarged lymph nodes. Urinary bladder: There is a small diverticulum along the anterior aspect of the urinary bladder, measuring 2 cm. Reproductive: Unremarkable as visualized. Bones/joints: Mildly increase in size of sclerotic lesion in the left posterior acetabulum measuring 1.8 cm (previously 1.6 cm). Other few subcentimeter sclerotic lesions in the pelvis are unchanged. Degenerative changes of the spine seen. Soft tissues: Unchanged small bowel containing right inguinal hernia. No associated bowel inflammation or obstruction identified. A small fat containing left inguinal hernia is present. CT/CT abdomen pelvis w con* [id number] IMPRESSION: 1. No acute intra-abdominal or intrapelvic pathology. 2. Small bowel containing right inguinal hernia, without evidence of inflammation or obstruction. 3. Interval increase in size of incompletely characterized hypodense lesion in the posterior left kidney. Further evaluation with contrast enhanced abdomen MRI is recommended. 4. Slight increase in size of sclerotic lesion in the posterior left acetabulum. 5. Unchanged right lower lobe nodules. 6. Mild splenomegaly.
--- NOTE | 2023-02-26 11:41 | W.ED.ABDPA2 ---
HPI - Abdominal Pain General: Chief Complaint: Abdominal Pain Stated Complaint: low abd pain Time Seen by Provider: 02/26/23 11:25 Source: patient Mode of arrival: ambulatory Limitations: no limitations History of Present Illness: 82-year-old male states he had an inguinal hernia quite some time he states been causing him some increased pain. He states pain is currently 3 out of 10 he denies any difficulty urinating he denies any vomiting or diarrhea. Denies any recent injuries. 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 Family history of lipoma Hydronephrosis Recurrent 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 Recurrent UTI 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 Surgical History History of removal of eye Family History Mother , AT AGE 91 LYMPHOMA Cancer Father , AT AGE 72 STOMACH CANCER Cancer Social History Smoking and tobacco status: never smoked Alcohol intake: never Substance/Drug Use: never Adopted: No Caregiver/support person: No Current occupational status: retired Physical Exam Const: COMMON NORMALS: no acute distress, patient oriented x3 and healthy appearing HENMT: COMMON NORMALS: normocephalic and atraumatic HEAD & SCALP: normocephalic and atraumatic Eye: COMMON NORMALS: Equal, round and reactive pupils present and EOMs intact bilaterally PUPIL: Yes Equal, round and reactive pupils present Neck/C-Spine: COMMON NORMALS: full ROM and supple Chest: COMMONS NORMALS: normal inspection of the chest and normal palpation of entire chest wall Resp: COMMON NORMALS: normal respiratory effort, No retractions, No use of accessory muscles and clear to auscultation bilaterally AUSCULTATION: clear to auscultation bilaterally Cardio: COMMON NORMALS: regular rate, regular rhythm and No murmurs present (Cardio) RATE: regular rate RHYTHM: regular rhythm GI: COMMON NORMALS: Normal to inspection, nondistended, normoactive bowel sounds present, Soft to palpation and no masses PALPATION: Yes Soft to palpation OTHER: Slight tenderness in right inguinal area he does have a inguinal hernia that is easily reduced here. Extremity: COMMON NORMALS: normal to inspection and full ROM Neuro: COMMON NORMALS: patient oriented x3, moves all extremities and no focal motor deficits Psych: COMMON NORMALS: mental status grossly normal, Normal thought process present and cooperative THOUGHT PROCESS: Normal thought process present Skin: COMMON NORMALS: no rashes or lesions noted and no wounds GENERAL SKIN EXAM: no rashes or lesions noted Course Vital Signs: Vital signs: Vital Signs Temperature 98.4 F 02/26/23 11:24 Pulse Rate 72 02/26/23 13:36 Respiratory Rate 16 02/26/23 11:24 Blood Pressure 149/63 02/26/23 13:36 Pulse Oximetry 94 02/26/23 13:36 Oxygen Delivery Me thod Room Air 02/26/23 12:12 MDM - Abdominal Pain Medical Decision Making Patient presents here with abdominal pain likely from his inguinal hernia its very easily reduced here CT shows no signs of incarceration did inform him of the findings of the kidney mass needs to follow-up with urology he is to follow-up with Dr. Salcido for his hernia he otherwise well-appearing labs are normal he is stable for discharge. He is return if worsening. Medical Records I reviewed the patient's medical records. Lab Data I reviewed the patient's lab results. 02/26/23 11:45 02/26/23 11:45 Labs/Radiology: Radiology Impressions Abdomen/Pelvis CT 02/26/23 11:40 IMPRESSION: 1. No acute intra-abdominal or intrapelvic pathology. 2. Small bowel containing right inguinal hernia, without evidence of inflammation or obstruction. 3. Interval increase in size of incompletely characterized hypodense lesion in the posterior left kidney. Further evaluation with contrast enhanced abdomen MRI is recommended. 4. Slight increase in size of sclerotic lesion in the posterior left acetabulum. 5. Unchanged right lower lobe nodules. 6. Mild splenomegaly. Laboratory Results WBC 5.8 10^3/uL (4.0-10.0) 02/26/23 11:45 RBC 4.53 10^6/uL (4.1-5.3) 02/26/23 11:45 Hgb 12.6 g/dL (11.7-16.6) 02/26/23 11:45 Hct 39.7 % (42.0-52.0) L 02/26/23 11:45 MCV 87.6 fl (80-94) 02/26/23 11:45 MCH 27.8 pg (28.0-34.0) L 02/26/23 11:45 MCHC 31.7 g/dL (30.0-36.0) 02/26/23 11:45 RDW 12.9 % (12.1-15.1) 02/26/23 11:45 Plt Count 184 10^3/cmm (130-400) 02/26/23 11:45 MPV 9.7 fL (7.4-10.4) 02/26/23 11:45 Neut % (Auto) 62.0 % 02/26/23 11:45 Lymph % (Auto) 23.2 % 02/26/23 11:45 [place] % (Auto) 10.6 % 02/26/23 11:45 Eos % (Auto) 3.1 % 02/26/23 11:45 Baso % (Auto) 0.9 % 02/26/23 11:45 Neut # (Auto) 3.59 10^3/uL (1.8-7.7) 02/26/23 11:45 Lymph # (Auto) 1.3 10^3/uL (0.8-4.8) 02/26/23 11:45 [place] # (Auto) 0.6 10^3/uL (0.2-0.9) 02/26/23 11:45 Eos # (Auto) 0.2 10^3/uL (0.0-0.8) 02/26/23 11:45 Baso # (Auto) 0.1 10^3/uL (0.0-0.1) 02/26/23 11:45 Nucleated RBC % (auto) 0 % 02/26/23 11:45 Nucleated RBCs # 0.0 /100WBC 02/26/23 11:45 Sodium 139 mmol/L (136-145) 02/26/23 11:45 Potassium 4.4 mmol/L (3.5-5.1) 02/26/23 11:45 Chloride 104 mmol/L (98-107) 02/26/23 11:45 Carbon Dioxide 27 mmol/L (22-29) 02/26/23 11:45 Anion Gap 12.4 (5-19) 02/26/23 11:45 BUN 25 mg/dL (8-23) H 02/26/23 11:45 Creatinine 1.6 mg/dL (0.7-1.2) H 02/26/23 11:45 GFR Calculation Not Reportable 02/26/23 11:45 Glucose 88 mg/dL (65-115) 02/26/23 11:45 Calculated Osmolality 292 mOsm/kg (285-295) 02/26/23 11:45 Calcium 9.0 mg/dL (8.5-10.5) 02/26/23 11:45 Total Bilirubin 0.7 mg/dL (0.15-1.2) 02/26/23 11:45 AST 15 U/L (0-40) 02/26/23 11:45 ALT 17 U/L (0-41) 02/26/23 11:45 Alkaline Phosphatase 105 U/L (40-130) 02/26/23 11:45 Total Protein 7.1 g/dL (6.6-8.7) 02/26/23 11:45 Albumin 3.6 g/dL (3.5-5.2) 02/26/23 11:45 Globulin 3.5 g/dL (1.3-4.6) 02/26/23 11:45 Lipase 24 U/L (13-60) 02/26/23 11:45 Discharge Plan Discharge Patient Disposition: Home Clinical Impression: Abdominal pain, Inguinal hernia, Kidney mass Condition: Stable Prescriptions: New hydrocodone-acetaminophen 5-325 mg tablet 1 tab PO Q6H PRN (Reason: pain) Qty: 14 0RF ondansetron 4 mg tablet,disintegrating 4 mg PO Q6H PRN (Reason: nausea and vomiting) Qty: 14 0RF No Action escitalopram oxalate [Lexapro] 20 mg tablet 20 mg PO DAILY amlodipine 10 mg tablet 10 mg PO DAILY Qty: 90 3RF acetaminophen 325 mg Tablet 650 mg PO Q6H PRN (Reason: Mild/Mod Pain Or Temp >/= 101) Qty: 30 0RF tramadol 50 mg tablet 50 mg PO BID PRN (Reason: Pain) Discharge Orders: Discharge ED (Routine); Ordered 02/26/23 Ordered By: Kaleb Tinsley Referrals: Germán Salcido DO [Physician] - 1-3 days Markus Allen MD [Primary Care Provider] - 1-3 days Discharge Diet: Advance as tolerated Discharge Activity: Resume usual activity Patient Instructions: Inguinal Hernia (ED), Abdominal Pain (ED), Opioid Safety, Pain Management Coding Level of Care Code ED Application Lead for Mynor Barry
[2023-02-26 11:56] LABS: Basophils # 0.1 10^3/uL (0.0-0.1); Basophils % 0.9 %; Eosinophils # 0.2 10^3/uL (0.0-0.8); Eosinophils % 3.1 %; Hematocrit 39.7 % (42.0-52.0); Hemoglobin 12.6 g/dL (11.7-16.6); Lymphocytes # 1.3 10^3/uL (0.8-4.8); Lymphocytes % 23.2 %; Mean Corpuscular HGB Conc 31.7 g/dL (30.0-36.0); Mean Corpuscular Hemoglobin 27.8 pg (28.0-34.0); Mean Corpuscular Volume 87.6 fl (80-94); Mean Platelet Volume 9.7 fL (7.4-10.4); Monocytes # 0.6 10^3/uL (0.2-0.9); Monocytes % 10.6 %; Neutrophils # 3.59 10^3/uL (1.8-7.7); Nucleated Red Blood Cells % 0 %; Platelet Count 184 10^3/cmm (130-400); Red Blood Count 4.53 10^6/uL (4.1-5.3); Red Cell Distribution Width 12.9 % (12.1-15.1); White Blood Count 5.8 10^3/uL (4.0-10.0)
[2023-02-26 11:57] VITALS: BP 136/56; PULSE 55; O2SAT 93
[2023-02-26 12:12] VITALS: BP 127/53; PULSE 63; O2SAT 94
[2023-02-26 12:18] LABS: Alanine Aminotransferase 17 U/L (0-41); Albumin Level 3.6 g/dL (3.5-5.2); Alkaline Phosphatase 105 U/L (40-130); Anion Gap 12.4 (5-19); Aspartate Amino Transferase 15 U/L (0-40); Blood Urea Nitrogen 25 mg/dL (8-23); Carbon Dioxide 27 mmol/L (22-29); Chloride 104 mmol/L (98-107); Globulin 3.5 g/dL (1.3-4.6); Glucose 88 mg/dL (65-115); Lipase 24 U/L (13-60); Osmolality Calculated 292 mOsm/kg (285-295); Potassium 4.4 mmol/L (3.5-5.1); Sodium 139 mmol/L (136-145); Total Bilirubin 0.7 mg/dL (0.15-1.2); Total Protein 7.1 g/dL (6.6-8.7)
[2023-02-26] MEDS: iohexol 350 mg/mL 500 mL Btl (per mL) IV (12:31)
[2023-02-26 13:36] VITALS: BP 149/63; PULSE 72; O2SAT 94
--- NOTE | 2023-03-01 08:13 | DCPLANNER ---
Addendum entered by Corinne Nolasco 03/05/23 10:17: biomass plant manager received the following message from the general surgery clinic regarding follow up appointment: Patient states he is not wanting till end of February to be seen & that he already has an appointment elsewhere.. Not scheduling with our office Original Note: biomass plant manager had message to schedule a follow up appointment for patient with general surgery. biomass plant manager sent patients information to the front office staff at general surgery. Patients information will be printed and reviewed. Clinic will call patient with appointment information.
--- NOTE | 2023-03-01 08:19 | DCPLANNER ---
Addendum entered by Corinne Nolasco 03/03/23 14:49: parks and recreation manager called [facility] urology to confirm if clinic had received patients information. parks and recreation manager was told that clinic had received patients information and it will be reviewed and clinic will call patient with appointment information. Addendum entered by Corinne Nolasco 03/02/23 12:49: parks and recreation manager received the following message from the urology clinic regarding followup appointment: will need to be sent elsewhere since there will need to be a surgery scheduled with follow up. parks and recreation manager spoke with patients , who stated would like patient referred to [facility]. parks and recreation manager faxed patients information to [facility] urology. Patients information will be reviewed, clinic will call patient with appointment information. Original Note: parks and recreation manager had message to schedule a follow up appointment for patient with urology. parks and recreation manager sent patients information to the front office staff at urology. Patients information will be printed and reviewed. Clinic will call patient with appointment information.
== END 2023-02-26 13:35 | disposition home or self-care (01) ==
PROVIDERS: Emergency Provider Emergency Medicine; PCP Family Medicine
DX: K40.90 Unilateral inguinal hernia, without obstruction or gangrene, not specified as recurrent (principal); N28.89 Other specified disorders of kidney and ureter
CPT/HCPCS: 74177; 80053; 83690; 85025; 99285; Q9967

== ENCOUNTER 2024-06-12 08:53 | Oncology outpatient (recurring) (ONCR) | payer MEDICARE, OTHER, SELFPAY ==
[2024-06-12 10:58] LABS: Basophils % 0.3 %; Eosinophils # 0.1 10^3/uL (0.0-0.8); Hematocrit 39.4 % (37-53); Lymphocytes # 0.7 10^3/uL (0.8-4.8); Lymphocytes % 7.1 %; Mean Corpuscular HGB Conc 30.7 g/dL (30-55); Mean Corpuscular Hemoglobin 28.1 pg (27-33); Mean Corpuscular Volume 91.4 fl (82-101); Mean Platelet Volume 9.7 fL (7.4-10.4); Monocytes # 0.6 10^3/uL (0.2-0.9); Monocytes % 6.4 %; Neutrophils # 8.26 10^3/uL (1.8-7.7); Neutrophils % 84.9 %; Nucleated Red Blood Cells % 0 %; Platelet Count 169 10^3/cmm (157-399); Red Blood Count 4.31 10^6/uL (3.85-5.65); Red Cell Distribution Width 16.3 % (12.1-15.1); White Blood Count 9.73 10^3/uL (3.29-11.43)
--- NOTE | 2024-06-12 11:00 | CTR_ITS ---
PROCEDURE INFORMATION: Exam: CT Chest Without Contrast; Diagnostic Exam date and time: 06/12/2024 12:03 PM Age: 83 years old Clinical indication: Condition or disease; Other: Lung cancer TECHNIQUE: Imaging protocol: Diagnostic computed tomography of the chest without contrast. Radiation optimization: All CT scans at this facility use at least one of these dose optimization techniques: automated exposure control; mA and/or kV adjustment per patient size (includes targeted exams where dose is matched to clinical indication); or iterative reconstruction. COMPARISON: CT angio chest PE protcl [id number] 08/26/2022 11:16 PM RADIATION DOSE METRICS: Total DLP (mGy-cm): 787.24 FINDINGS: Lungs: Numerous irregular soft tissue nodules are scattered throughout both lungs. Some of the nodules are partially calcified. The largest nodule in the right lung measures 2.1 cm in diameter within the right upper lobe. The largest nodule on the left measures 3.2 cm in diameter in the left upper lobe. Pleural spaces: Unremarkable. No pneumothorax. No pleural effusion. Heart: Unremarkable. No cardiomegaly. No pericardial effusion. Coronary arteries: Coronary artery calcifications are noted. Lymph nodes: Unremarkable. No enlarged lymph nodes. Vasculature: Unremarkable. No aortic aneurysm. Bones/joints: Unremarkable. No acute fracture. Soft tissues: Unremarkable. months, PET/CT, or biopsy. (Reference: Chantelle) REFERENCES: Chantelle Dominguez et al. Guidelines for Management of Incidental Pulmonary Nodules Detected on CT Images: From the Fleischner Society 2017. Radiology. 2017;284(1):228-243. PROCEDURE INFORMATION: Exam: CT Abdomen And Pelvis Without Contrast Exam date and time: 06/12/2024 12:03 PM Age: 83 years old Clinical indication: Condition or disease; Other: Lung cancer TECHNIQUE: Imaging protocol: Computed tomography of the abdomen and pelvis without contrast. Radiation optimization: All CT scans at this facility use at least one of these dose optimization techniques: automated exposure control; mA and/or kV adjustment per patient size (includes targeted exams where dose is matched to clinical indication); or iterative reconstruction. COMPARISON: CT abdomen pelvis w con* [id number] 02/26/2023 12:27 PM RADIATION DOSE METRICS: Total DLP (mGy-cm): 787.24 FINDINGS: Lungs: Lung bases are clear. No pleural effusion. Liver: Normal. No mass. Gallbladder and biliary ducts: Normal. No calcified stones. No ductal dilation. Pancreas: Normal. No ductal dilation. Spleen: Normal. No splenomegaly. Adrenal glands: Normal. No mass. Kidneys and ureters: Normal. No hydronephrosis. Stomach and bowel: Unremarkable. No obstruction. No mucosal thickening. Appendix: No evidence of appendicitis. Intraperitoneal space: Unremarkable. No free air. No significant fluid collection. Vasculature: Unremarkable. No abdominal aortic aneurysm. Lymph nodes: Unremarkable. No enlarged lymph nodes. Urinary bladder: Unremarkable as visualized. Reproductive: The prostate gland is abnormally enlarged. Bones/joints: Unremarkable. No acute fracture. Soft tissues: Unremarkable. CT/[place] [id number] IMPRESSION: 1. There is no evidence of active neoplastic disease. 2. 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 3. For both low risk and high risk patients, consider CT Chest at 3 IMPRESSION: 1. There is no evidence of active neoplastic disease. 2. Prostate enlargement
[2024-06-12 11:48] LABS: Alanine Aminotransferase 25 U/L (0-41); Albumin Level 3.6 g/dL (3.5-5.2); Alkaline Phosphatase 103 U/L (40-130); Anion Gap 12.2 (5-19); Aspartate Amino Transferase 16 U/L (0-40); Blood Urea Nitrogen 24 mg/dL (8-23); Calcium 8.9 mg/dL (8.5-10.5); Carbon Dioxide 30 mmol/L (22-29); Chloride 105 mmol/L (98-107); Creatinine Clr Calc Pharmacy 36.7943; Globulin 3.2 g/dL (1.3-4.6); Glucose 117 mg/dL (65-115); Osmolality Calculated 301 mOsm/kg (285-295); Potassium 4.2 mmol/L (3.5-5.1); Sodium 143 mmol/L (136-145); Thyroid Stimulating Hormone 0.95 uIU/mL (0.27-4.20); Total Bilirubin 0.5 mg/dL (0.15-1.2); Total Protein 6.8 g/dL (6.6-8.7)
[2024-06-12] MEDS: iohexol 350 mg/mL 500 mL Btl (per mL) PO (12:16)
== END 2024-06-26 23:59 | disposition home or self-care (01) ==
PROVIDERS: PCP Family Medicine; Visit Provider Internal Medicine Medical Oncology
DX: C34.32 Malignant neoplasm of lower lobe, left bronchus or lung; C78.7 Secondary malignant neoplasm of liver and intrahepatic bile duct; C77.1 Secondary and unspecified malignant neoplasm of intrathoracic lymph nodes; Z87.891 Personal history of nicotine dependence; R53.83 Other fatigue; J96.00 Acute respiratory failure, unspecified whether with hypoxia or hypercapnia; L27.1 Localized skin eruption due to drugs and medicaments taken internally; T45.1X5A Adverse effect of antineoplastic and immunosuppressive drugs, initial encounter; Z79.899 Other long term (current) drug therapy; Z53.9 Procedure and treatment not carried out, unspecified reason
CPT/HCPCS: 36415; 71250; 74176; 80053; 84443; 85025; 99205

== ENCOUNTER 2024-06-30 08:14 | Oncology outpatient (recurring) (ONCR) | payer MEDICARE, OTHER, SELFPAY ==
--- NOTE | 2024-06-30 08:00 | PETR_ITS ---
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 History of chronic cryptococcal fungal infection. LABS AND CLINICAL REPORTS: Glucose: 108 mg/dl Treatment strategy for malignancy (PET staging): Initial Staging (PI) TECHNIQUE: Imaging protocol: Following at least four-hour fasting and following the injection of radiopharmaceutical, low dose CT images were obtained. Then, PET images were obtained. Attenuation corrected images were constructed using the CT scan. Fused images of PET and CT were reviewed. The standardized uptake values (SUV) reported below are maximum values within a region of interest, expressed in gm/ml. Exam includes orbital meatal line to mid-thigh. Radiopharmaceutical: 10.61 mCi F-18 FDG (Fluorodeoxyglucose), IV. Time of imaging post radiopharmaceutical administration: 1 hour Injection site: Left antecubital vein; left ac. COMPARISON: [place] [id number] 06/12/2024 12:03 PM FINDINGS: Brain: Visualized brain has normal physiologic uptake. Pharynx: No abnormal uptake. Larynx: No abnormal uptake. Lungs, pleura and trachea: Small linear focus of mildly increased uptake of 3.4 SUV in the lingula with no corresponding nodular mass on CT is indeterminate. There is no abnormal uptake in multiple bilateral calcified and noncalcified lung nodules most numerous in the upper lobes probably representing chronic cryptococcal fungal infection. Small amount of endobronchial secretions present in the trachea. No pleural effusion. Heart: Normal physiologic uptake. There is no cardiomegaly. Coronary artery calcification is present. There is no pericardial effusion. Mediastinal space: No abnormal uptake. Liver: No abnormal uptake. Gallbladder and biliary ducts: No abnormal uptake. No calcified gallstones. Pancreas: No abnormal uptake. Spleen: No abnormal uptake. No splenomegaly. Adrenal glands: No abnormal uptake. No nodules. Kidneys and ureters: Normal physiologic uptake. No hydronephrosis. Stomach and bowel: A few areas of focal intense uptake in the small bowel loops in the left abdomen with no corresponding CT abnormality are probably benign. No abnormal dilatation of the bowel. Diverticulosis of the sigmoid colon. Intraperitoneal and retroperitoneal spaces: No abnormal uptake. No ascites. Bladder: Normal physiologic uptake. Reproductive: No abnormal uptake. The prostate is mildly enlarged. Vasculature: No abnormal uptake. 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 Lymph nodes: No abnormal uptake. No lymphadenopathy in the head, neck, chest, abdomen, pelvis, and extremities. Skeleton: No abnormal uptake in the visualized axial and appendicular skeleton. A few dense sharply-circumscribed sclerotic foci in the left iliac bone including the largest 1.4 focus posteriorly in the left acetabulum is compatible with benign finding of enostoses/bone islands. Soft tissues: No abnormal uptake in the visualized head, neck, chest, abdomen, pelvis, and extremities. PET/PET skull to thigh INIT [id number] IMPRESSION: No abnormal radiotracer uptake in the left lower lobe where reportedly primary lung addendum carcinoma is diagnosed. There are no images of prior lung biopsy to confirm the location. Small linear uptake of 3.4 SUV in the perivascular area in the lingula is of indeterminate clinical significance. No FDG avid lymphadenopathy in the chest. No evidence of distant metastatic disease. Elongated areas of increased uptake in the small bowel in the left abdomen are likely benign. There is no abnormal uptake in multiple bilateral calcified and noncalcified lung nodules in this patient with known history of cryptococcal fungal infection.
== END 2024-07-27 23:59 | disposition home or self-care (01) ==
LOC: RAD 08:14 → ONCMED 07-03 13:10
PROVIDERS: PCP Family Medicine; Visit Provider Internal Medicine Medical Oncology
DX: C34.32 Malignant neoplasm of lower lobe, left bronchus or lung (principal); Q43.8 Other specified congenital malformations of intestine; Z86.19 Personal history of other infectious and parasitic diseases; R91.8 Other nonspecific abnormal finding of lung field
CPT/HCPCS: 78815; A9552